=== PATIENT | male | born 1955 | race Caucasian/White ===

== ENCOUNTER 2019-03-28 15:48 | Emergency (ER) | payer MEDICARE, MEDICAID ==
[~2019-03-28] VITALS: Ht 175.2 cm; Wt 94.3 kg
--- NOTE | 2019-03-28 16:28 | ED Lower Extremity ---
General Chief Complaint: Lower Extremity Stated Complaint: LT FOOT PAIN Nursing Triage Note: Patient c/o left foot pain. Denies any known injury to his foot. He states he has neuropathy in his feet but his the left side of his left foot started hurting 2 days ago. Nursing Sepsis Screen: No Definite Risk History of Present Illness Date Seen by Provider: Mar 28, 2019 Time Seen by Provider: 16:03 Initial Comments The patient is a 63-year-old male with history of hypertension, hyperlipidemia, coronary artery disease, paroxysmal atrial fibrillation on Coumadin, COPD not on home oxygen, history of chronic back pain with spinal stimulator in place. The patient presents with concern for 2 days of atraumatic left foot discomfort. Pain is primarily notable to the lateral dorsal aspect of the left forefoot and midfoot, running all the way around to the skin above the lateral talus. Patient denies any known injury to his foot and states that pain had onset about 2 days ago without any unusual activity or use of his feet. He denies any other symptoms and specifically denies fevers, nausea or vomiting, cough, shortness of breath or chest pain, abdominal pain, flank pain, back pain any worse than usual, radiating discomfort down the left leg, dysuria, hematuria, loss of bowel or bladder, urinary retention, changes in bowel habits. Patient has been taking his home hydrocodone for discomfort without complete relief of symptoms. He did ambulate in with a narrow, steady gait. Allergies and Home Medications Allergies Coded Allergies: oxycodone (Verified Allergy, Unknown, 03/28/19) Home Medications Cephalexin 250 Mg Capsule, 250 MG PO Q6H Prescribed by: CHANDAN LOPEZ on 03/28/19 1647 Prednisone 20 Mg Tab, 40 MG PO DAILY Prescribed by: CHANDAN LOPEZ on 03/28/19 1647 Patient Home Medication List Home Medication List Reviewed: Yes Review of Systems Constitutional: see HPI All Other Systems Reviewed Negative Unless Noted: Yes (Negative excepted noted.) Past Hyxrjpf-Jqfvqo-Divhft Hx Past Med/Social Hx: Reviewed Nursing Past Med/Soc Hx Patient Social History Alcohol Use: Denies Use Recreational Drug Use: No Smoking Status: Current Everyday Smoker Type Used: Cigarettes 2nd Hand Smoke Exposure: No Recent Foreign Travel: No Contact w/Someone Who Travel: No Recent Infectious Disease Expo: No Recent Hopitalizations: No Physical Abuse: No Sexual Abuse: No Mistreated: No Fear: No Seasonal Allergies Seasonal Allergies: No Past Medical History Surgeries: Yes (Spinal Stimulator) Appendectomy, CABG Respiratory: Yes COPD Cardiac: Yes (CHF) Heart Attack, High Cholesterol, Hypertension Neurological: Yes Neuropathy Genitourinary: No Gastrointestinal: Yes Gastroesophageal Reflux Musculoskeletal: Yes Arthritis, Chronic Back Pain Endocrine: Yes Diabetes, Insulin dep HEENT: No Cancer: No Psychosocial: Yes Depression Blood Disorders: No Adverse Reaction/Blood Tranf: No Family Medical History Reviewed Nursing Family Hx Physical Exam Vital Signs Vital Signs - First Documented 03/28/19 15:58 Temp 36.2 Pulse 72 Resp 20 B/P (MAP) 121/73 (89) Pulse Ox 92 O2 Delivery Room Air Capillary Refill : Less Than 3 Seconds Height, Weight, BMI Height: '" Weight: lbs. oz. kg; 30.00 BMI Method: General Appearance: no apparent distress This is an older male appearing nontoxic and in no acute distress. Head is normocephalic and atraumatic. Neck is supple and nontender. Oropharynx is moist. Lungs are clear to auscultation in all stations. There is a normal S1 and S2 without rubs or gallops and capillary refill is appropriate, less than 2 seconds globally. Abdomen is soft, nontender and nondistended. Skin is warm and dry without cyanosis, clubbing or edema. Psychiatrically, the patient demonstrates appropriate mood and affect and is alert. Pry musculoskeletal standpoint, evaluation of the left lower extremity is remarkable for mild tenderness and swelling and very minimal erythema which is worst inferior to the lateral malleolus over the left foot. Mild discomfort to palpation and swelling extend over the lateral dorsal midfoot to the forefoot proximal to the fourth toe. There is no pain with ranging of any joint of the left lower extremity aside from the left ankle, which has no joint irritability and is able to be ranged in all dimensions, only with some discomfort to the area just below the lateral left ankle as above noted. The left lower extremity is neurovascularly intact with strength 5 out of 5, sensation intact to light touch in all nerve distributions, DP and PT pulses 2+, capillary refill less than 2 seconds, foot warm and well perfused. Progress/Results/Core Measures Results/Orders My Orders Orders - CHANDAN LOPEZ MD Foot 3 View Left (03/28/19 16:29) Prednisone Tablet (Deltasone Tablet) (03/28/19 17:00) Vital Signs/I&O 03/28/19 15:58 Temp 36.2 Pulse 72 Resp 20 B/P (MAP) 121/73 (89) Pulse Ox 92 O2 Delivery Room Air Blood Pressure Mean: 89 Progress Progress Note : Time: 16:41 Progress Note Clinical examination is generally reassuring with no joint irritability or brawny erythema to the left ankle or any other joint of the left lower extremity suggestive of septic joint. No calf pain or swelling in the patient is already on Coumadin in any event. Possibilities include occult soft tissue injury, occult fracture, gout flare, cellulitis. We will obtain plain films to further characterize the patient's symptoms. If these are unremarkable, we will cover for gout and other inflammatory process with low-dose steroid burst (patient is diabetic but on insulin and checks his sugars and will be able to compensate for hyperglycemia consequent to steroid use). He is unable to take NSAIDs. Given associated mild erythema, we'll cover for cellulitis with a course of Keflex. Patient is to take his home hydrocodone for pain and is counseled to follow up very closely with his primary care physician in the next 1-2 days in the clinic. In the meantime, he understands that if symptoms worsen or if he develops other new symptoms of concern that he will need to return immediately to the emergency department for reevaluation. Update 1710: plain films unremarkable. Will proceed with discharge to f/u closely with PCP in the next 1-2 days as per plan above. Departure Impression Primary Impression: Acute pain of left foot Disposition: 01 HOME, SELF-CARE Condition: Improved Departure-Patient Inst. Referrals: NO,LOCAL PHYSICIAN (PCP/Family) Primary Care Physician Add. Discharge Instructions: Follow up with your primary care physician as discussed in the next 1-2 days for reassessment and discussion of next steps in care. Return to the Emergency Depar tment immediately if symptoms worsen or if other new symptoms of concern develop. Scripts Cephalexin (Keflex) 250 Mg Capsule 250 MG PO Q6H for 7 Days, #28 CAP Prov: CHANDAN LOPEZ MD 03/28/19 Prednisone (Prednisone) 20 Mg Tab 40 MG PO DAILY for 5 Days, #5 TAB Prov: CHANDAN LOPEZ MD 03/28/19 CHANDAN LOPEZ MD Mar 28, 2019 16:28
[2019-03-28] MEDS ORDERED: CEPH-506 PO (16:47)
[2019-03-28] MEDS ORDERED: PRD20T PO (16:47)
[2019-03-28] MEDS ORDERED: predniSONE 20 MG TAB PO ONE (17:00)
--- NOTE | 2019-03-28 17:18 | Diagnostic Imaging Report ---
INDICATION: Left foot pain. TIME OF EXAM: 04:46 p.m. FINDINGS: Three views of the left foot were obtained. Metatarsals are intact. Phalanges are intact. Mid foot and hind foot are unremarkable apart from a small plantar calcaneal spur. No fractures are seen. IMPRESSION: No acute bony abnormality is detected. Dictated by: Dictated on workstation # [id number]
[2019-03-28 17:21] VITALS: BP 121/73
== END 2019-03-28 17:21 | disposition home or self-care (01) ==
LOC: ER FS 15:51
DX: M79.672 Pain in left foot (principal); I11.0 Hypertensive heart disease with heart failure; I50.9 Heart failure, unspecified; E11.40 Type 2 diabetes mellitus with diabetic neuropathy, unspecified; E78.5 Hyperlipidemia, unspecified; I25.10 Atherosclerotic heart disease of native coronary artery without angina pectoris; I25.2 Old myocardial infarction; I48.0 Paroxysmal atrial fibrillation; J44.9 Chronic obstructive pulmonary disease, unspecified; K21.9 Gastro-esophageal reflux disease without esophagitis; F32.9 Major depressive disorder, single episode, unspecified; F17.210 Nicotine dependence, cigarettes, uncomplicated; Z90.49 Acquired absence of other specified parts of digestive tract; Z95.1 Presence of aortocoronary bypass graft; Z99.81 Dependence on supplemental oxygen; Z88.5 Allergy status to narcotic agent
CPT/HCPCS: 73630

== ENCOUNTER 2019-04-25 14:50 | Observation (INO) | payer MEDICARE, MEDICAID ==
[2019-04-25] VITALS (7 sets, daily range): BP systolic 95–120; BP diastolic 61–97
[~2019-04-25] VITALS: Ht 172.7 cm; Wt 97.0 kg
[~2019-04-25 14:50] MED LIST: CEPH-506 PO; PRD20T PO
[2019-04-25] MEDS ORDERED: ASPIRIN 81 MG CHEW (CHILDREN'S ASA) PO ONE (15:00)
--- NOTE | 2019-04-25 15:05 | ED Respiratory ---
General Chief Complaint: Respiratory Problems Stated Complaint: SOA Source: patient Exam Limitations: no limitations History of Present Illness Date Seen by Provider: Apr 25, 2019 Time Seen by Provider: 15:03 Initial Comments To ER private vehicle from home with reports of shortness of breath for about 3 days. He just moved here from [facility] to [facility] 1 month ago. For the past 30 days he's been unable to fill his torsemide because the pharmacy has difficulty getting it he states. He denies cough. Continues to smoke about 5 cigarettes per day. Has not established care with any physicians in the area since moving here. Timing/Duration: constant, getting worse Associated Symptoms: shortness of breath Allergies and Home Medications Allergies Coded Allergies: oxycodone (Verified Allergy, Unknown, 03/28/19) Home Medications Cephalexin 250 Mg Capsule, 250 MG PO Q6H Prescribed by: CHANDAN LOPEZ on 03/28/191646 Prednisone 20 Mg Tab, 40 MG PO DAILY Prescribed by: CHANDAN LOPEZ on 03/28/19 1647 Patient Home Medication List Home Medication List Reviewed: Yes Review of Systems Review of Systems Constitutional: see HPI EENTM: see HPI Respiratory: see HPI, dyspnea on exertion, short of breath Cardiovascular: no symptoms reported; No chest pain Genitourinary: no symptoms reported Musculoskeletal: no symptoms reported Skin: no symptoms reported Psychiatric/Neurological: No Symptoms Reported Hematologic/Lymphatic: No Symptoms Reported Past Zwplppv-Obhosz-Orstap Hx Patient Social History Type Used: Cigarettes 2nd Hand Smoke Exposure: No Recent Foreign Travel: No Contact w/Someone Who Travel: No Recent Hopitalizations: No Seasonal Allergies Seasonal Allergies: No Past Medical History Surgeries: Yes (Spinal Stimulator) Appendectomy, CABG Respiratory: Yes COPD Cardiac: Yes (CHF) Heart Attack, High Cholesterol, Hypertension Neurological: Yes Neuropathy Genitourinary: No Gastrointestinal: Yes Gastroesophageal Reflux Musculoskeletal: Yes Arthritis, Chronic Back Pain Endocrine: Yes Diabetes, Insulin dep HEENT: No Cancer: No Psychosocial: Yes Depression Blood Disorders: No Adverse Reaction/Blood Tranf: No Physical Exam Vital Signs - First Documented 04/25/19 14:53 Temp 36.7 Pulse 77 Resp 24 B/P (MAP) 124/79 (94) Pulse Ox 94 O2 Delivery Nasal Cannula O2 Flow Rate 2.00 Capillary Refill : Height: '" Weight: lbs. oz. kg; 30.00 BMI Method: General Appearance: WD/WN, no apparent distress Eyes: Bilateral Eye Normal Inspection, Bilateral Eye PERRL, Bilateral Eye EOMI HEENT: PERRL/EOMI, normal ENT inspection Neck: non-tender, full range of motion Respiratory: no respiratory distress, no accessory muscle use, crackles (in bases) Cardiovascular: regular rate, rhythm, no murmur; No JVD Gastrointestinal: normal bowel sounds, non tender Extremities: normal range of motion, non-tender Neurologic/Psychiatric: alert, normal mood/affect, oriented x 3 Skin: normal color, warm/dry Progress/Results/Core Measures Suspected Sepsis SIRS Temperature: Pulse: Respiratory Rate: Laboratory Tests 04/25/19 14:58: White Blood Count 8.6 Blood Pressure / Mean: Laboratory Tests 04/25/19 14:58: Creatinine 3.03H, INR Comment 1.0, Platelet Count 116L, Total Bilirubin 0.6 Results/Orders Lab Results Laboratory Tests Test 04/25/19 14:58 04/25/19 17:13 Range/Units White Blood Count 8.6 4.3-11.0 10^3/uL Red Blood Count 4.01 L 4.35-5.85 10^6/uL Hemoglobin 11.9 L 13.3-17.7 G/DL Hematocrit 36 L 40-54 % Mean Corpuscular Volume 90 80-99 FL Mean Corpuscular Hemoglobin 30 25-34 PG Mean Corpuscular Hemoglobin Concent 33 32-36 G/DL Red Cell Distribution Width 14.9 H 10.0-14.5 % Platelet Count 116 L 130-400 10^3/uL Mean Platelet Volume 12.6 H 7.4-10.4 FL Neutrophils (%) (Auto) 68 42-75 % Lymphocytes (%) (Auto) 17 12-44 % Monocytes (%) (Auto) 11 0-12 % Eosinophils (%) (Auto) 4 0-10 % Basophils (%) (Auto) 0 0-10 % Neutrophils # (Auto) 5.8 1.8-7.8 X 10^3 Lymphocytes # (Auto) 1.5 1.0-4.0 X 10^3 Monocytes # (Auto) 1.0 0.0-1.0 X 10^3 Eosinophils # (Auto) 0.3 0.0-0.3 10^3/uL Basophils # (Auto) 0.0 0.0-0.1 10^3/uL Prothrombin Time 13.5 12.2-14.7 SEC INR Comment 1.0 0.8-1.4 Activated Partial Thromboplast Time 26 24-35 SEC Sodium Level 140 135-145 MMOL/L Potassium Level 4.4 3.6-5.0 MMOL/L Chloride Level 99 98-107 MMOL/L Carbon Dioxide Level 26 21-32 MMOL/L Anion Gap 15 H 5-14 MMOL/L Blood Urea Nitrogen 47 H 7-18 MG/DL Creatinine 3.03 H 0.60-1.30 MG/DL Estimat Glomerular Filtration Rate 21 BUN/Creatinine Ratio 16 Glucose Level 132 H 70-105 MG/DL Calcium Level 9.3 8.5-10.1 MG/DL Corrected Calcium 9.2 8.5-10.1 MG/DL Magnesium Level 2.3 1.6-2.4 MG/DL Total Bilirubin 0.6 0.1-1.0 MG/DL Aspartate Amino Transf (AST/SGOT) 15 5-34 U/L Alanine Aminotransferase (ALT/SGPT) 22 0-55 U/L Alkaline Phosphatase 75 40-136 U/L Myoglobin 101.9 H 10.0-92.0 NG/ML Troponin I 0.061 H <0.028 NG/ML B-Type Natriuretic Peptide 1699.5 H <100.0 PG/ML Total Protein 7.1 6.4-8.2 GM/DL Albumin 4.1 3.2-4.5 GM/DL My Orders Orders - OLGA POWELL CLIENT PROGRAM MANAGER Cbc With Automated Diff (04/25/19 14:57) Magnesium (04/25/19 14:57) Chest 1 View, Ap/Pa Only (04/25/19 14:57) Ekg Tracing (04/25/19 14:57) Cardiac Profile 1 (04/25/19 14:57) Comprehensive Metabolic Panel (04/25/19 14:57) Myoglobin Serum (04/25/19 14:57) Protime With Inr (04/25/19 14:57) Partial Thromboplastin Time (04/25/19 14:57) O2 (04/25/19 14:57) Monitor-Rhythm Ecg Trace Only (04/25/19 14:57) Lipid Panel (04/26/19 06:00) Ed Iv/Invasive Line Start (04/25/19 14:57) BNP (04/25/19 14:57) Aspirin Chewable Tablet (Baby Aspirin Ch (04/25/19 15:00) Ns Iv 500 Ml (Sodium Chloride 0.9%) (04/25/19 15:45) Furosemide Injection (Lasix Injection) (04/25/19 16:15) Fibrin Degradation Products (04/25/19 16:56) Albuterol/Ipra Inhalation Soln (Duoneb I (04/25/19 17:00) Svn Small Volume Nebulizer (04/25/19 16:57) Arterial Blood Gas (04/25/19 17:08) Medications Given in ED Current Medications Medications Dose Ordered Sig/Rhys Route Start Time Stop Time Status Last Admin Dose Admin Albuterol/ Ipratropium 3 ml ONCE ONCE INH 04/25/19 17:00 04/25/19 17:01 DC 04/25/19 17:07 3 ML Aspirin 324 mg ONCE ONCE PO 04/25/19 15:00 04/25/19 15:01 DC 04/25/19 15:12 324 MG Furosemide 40 mg ONCE ONCE IVP 04/25/19 16:15 04/25/19 16:16 DC 04/25/19 16:21 40 MG Vital Signs/I&O 04/25/19 04/25/19 04/25/19 14:53 14:58 17:08 Temp 36.7 Pulse 77 Resp 24 B/P (MAP) 124/79 (94) Pulse Ox 94 94 92 O2 Delivery Nasal Cannula Nasal Cannula Nasal Cannula O2 Flow Rate 2.00 2.00 2.00 Capillary Refill : Diagnostic Imaging Diagonstic Imaging: Xray Plain Films/CT/US/NM/MRI: chest Comments NAME: [facility] REC#: [id number] PT STATUS: REG ER : 1955 PHYSICIAN: OLGA POWELL APRN ADMIT DATE: 04/25/19/ER Draft POSDate of Exam:04/25/19 CHEST 1 VIEW, AP/PA ONLY EXAMINATION: Portable erect AP chest at 0314 hours. INDICATION: Fluid retention. COMPARISON: There are no prior studies available for comparison. FINDINGS: The heart is enlarged and there are sternotomy wires and surgical clips evident. There is also a left-sided defibrillator device in place. The central pulmonary vascularity is prominent and most likely there is an element of mild pulmonary congestion present. There is no sign of pneumonia or significant pleural effusion. The mediastinum is not widened. The osseous structures are intact. Incidental note is made of a dorsal stimulator device with the leads overlying the mid thoracic spine. IMPRESSION: There is cardiomegaly and evidence of prior cardiac surgery. The prominence of the central pulmonary vascularity also suggests that there is mild pulmonary congestion. A follow-up exam will be recommended for continued evaluation. Dictated on workstation # [id number] Dict: 04/25/19 1535 Trans: 04/25/19 1546 [facility] [id number] Interpreted by: STACI LOVE MD Electronically signed by: Departure Communication (Admissions) Time/Spoke to Consulting Phy: 17:24 1724-patient states that after a DuoNeb treatment he is feeling better. I feel that his shortness of breath is more related to a COPD exacerbation. He wears oxygen at 2 L per nasal cannula at home at night. He does have a nebulizer at home and has been using that. After our treatment here he does feel much less short of breath. I'll start him on Ceftin and prednisone for COPD exacerbation, admitted to hospitalist, consult cardiology for further workup Impression Primary Impression: CHF (congestive heart failure) Qualified Codes: I50.9 - Heart failure, unspecified Additional Impression: ARF (acute renal failure) Qualified Codes: N17.9 - Acute kidney failure, unspecified Disposition: ADMITTED INPATIENT Condition: Stable Admissions Decision to Admit Reason: Admit from ER (General) Decision to Admit/Date: Apr 25, 2019 Time/Decision to Admit Time: 17:24 Departure-Patient Inst. Referrals: NO,LOCAL PHYSICIAN (PCP/Family) Primary Care Physician OLGA POWELL APRN Apr 25, 2019 15:05 POS
[2019-04-25 15:11] LABS: BASOPHILS % (AUTO) 0 % (0-10); EOSINOPHILS # (AUTO) 0.3 10^3/uL (0.0-0.3); EOSINOPHILS % (AUTO) 4 % (0-10); HEMATOCRIT 36 % (40-54); HEMOGLOBIN 11.9 G/DL (13.3-17.7); LYMPHOCYTES # (AUTO) 1.5 X 10^3 (1.0-4.0); LYMPHOCYTES % (AUTO) 17 % (12-44); MEAN CORPUSCULAR HEMOGLOBIN 30 PG (25-34); MEAN CORPUSCULAR HGB CONC 33 G/DL (32-36); MEAN CORPUSCULAR VOLUME 90 FL (80-99); MEAN PLATELET VOLUME 12.6 FL (7.4-10.4); MONOCYTES % (AUTO) 11 % (0-12); NEUTROPHILS # (AUTO) 5.8 X 10^3 (1.8-7.8); NEUTROPHILS % (AUTO) 68 % (42-75); PLATELET COUNT 116 10^3/uL (130-400); RED CELL DISTRIBUTION WIDTH 14.9 % (10.0-14.5); WHITE BLOOD COUNT 8.6 10^3/uL (4.3-11.0)
[2019-04-25 15:22] LABS: PROTHROMBIN TIME PATIENT 13.5 SEC (12.2-14.7)
[2019-04-25 15:29] LABS: ALBUMIN 4.1 GM/DL (3.2-4.5); BILIRUBIN,TOTAL 0.6 MG/DL (0.1-1.0); CALCIUM 9.3 MG/DL (8.5-10.1); CREATININE SERUM 3.03 MG/DL (0.60-1.30); MAGNESIUM 2.3 MG/DL (1.6-2.4); POTASSIUM 4.4 MMOL/L (3.6-5.0); TOTAL PROTEIN 7.1 GM/DL (6.4-8.2)
[2019-04-25] MEDS ORDERED: NS IV 500 ML 500 ML IV SCH (15:45)
--- NOTE | 2019-04-25 15:46 | Diagnostic Imaging Report ---
EXAMINATION: Portable erect AP chest at 0314 hours. INDICATION: Fluid retention. COMPARISON: There are no prior studies available for comparison. FINDINGS: The heart is enlarged and there are sternotomy wires and surgical clips evident. There is also a left-sided defibrillator device in place. The central pulmonary vascularity is prominent and most likely there is an element of mild pulmonary congestion present. There is no sign of pneumonia or significant pleural effusion. The mediastinum is not widened. The osseous structures are intact. Incidental note is made of a dorsal stimulator device with the leads overlying the mid thoracic spine. IMPRESSION: There is cardiomegaly and evidence of prior cardiac surgery. The prominence of the central pulmonary vascularity also suggests that there is mild pulmonary congestion. A follow-up exam will be recommended for continued evaluation. Dictated by: Dictated on workstation # [id number]
[2019-04-25] MEDS ORDERED: FUROSEMIDE 40 MG/4 ML INJ (LASIX) IVP ONE (16:15)
[2019-04-25] MEDS ORDERED: RT-ALBUTEROL/IPRATROPIUM 3 ML (DUONEB) VIAL INH ONE (17:00)
[2019-04-25 17:20] LABS: ABG BASE EXCESS 6.7 MMOL/L (-2.5-2.5); ABG OXYGEN SATURATION 89 % (94-100); ABG PCO2 46 MMHG (35-45); ABG PH 7.44 (7.37-7.43); ABG PO2 53 MMHG (79-93); ABG TCO2 32.4 MMOL/L (21.0-31.0)
[2019-04-25 17:24] LABS: ALLENS TEST POSITIVE; INSPIRED O2 2 L; PATIENT TEMP 98; VENTILATOR NO
[2019-04-25] MEDS: predniSONE 20 MG TAB PO SCH (21:41)
[2019-04-25] MEDS: inSUlin ASPART (NovoLOG) 1 UNIT/0.01 ML (CHARGE PER UNIT) SC SCH (21:42)
[2019-04-25] MEDS ORDERED: RT-ALBUTEROL/IPRATROPIUM 3 ML (DUONEB) VIAL INH PRN (23:15)
[2019-04-26] VITALS (9 sets, daily range): BP systolic 111–127; BP diastolic 66–84
[2019-04-26] MEDS: inSUlin ASPART (NovoLOG) 1 UNIT/0.01 ML (CHARGE PER UNIT) SC SCH ×4 (06:06→19:45)
[2019-04-26 06:43] LABS: CHOLESTEROL 132 MG/DL (< 200); HDL CHOLESTEROL 34 MG/DL (40-60); TRIGLYCERIDES 103 MG/DL (<150); VLDL CHOLESTEROL 21 MG/DL (5-40)
[2019-04-26] MEDS: FUROSEMIDE 40 MG/4 ML INJ (LASIX) IVP SCH ×2 (08:38→17:20)
[2019-04-26] MEDS: ASPIRIN 81 MG CHEW (CHILDREN'S ASA) PO SCH (08:38)
[2019-04-26] MEDS: predniSONE 20 MG TAB PO SCH (08:38)
--- NOTE | 2019-04-26 09:16 | History & Physical-Hospitalist ---
History of Present Illness HPI/Chief Complaint He should is a 63-year-old male with past medical history of systolic heart failure, insulin-dependent diabetes type II, COPD, coronary artery disease who presented to the emergency room with lower extremity edema and shortness of breath. He states this started about 4 days ago. He has recently moved here f [facility] and has been unable to get his torsemide and thinks that this worsened. He was also having shortness of breath but did not feel that that was his COPD. He is currently wearing oxygen but does not normally wear oxygen. He was started on Lasix in the emergency room and then prednisone on admission and this morning states he is feeling much better. He still has significant edema i n his legs from his baseline per him but his breathing is much improved. He is scheduled to see Dr. Blanco on Saturday but has not established with a hog scraper or fabric normalizer. Source: patient Date Seen 04/26/19 Time Seen by a Provider: 09:15 Attending Physician Johnathon Hatfield MD PCP No,Local Physician Referring Physician Date of Admission Apr 25, 2019 at 16:45 Home Medications & Allergies Home Medications Reviewed patient Home Medication Reconciliation performed by pharmacy medication reconciliations electroplating technician and/or nursing. Patients Allergies have been reviewed. Allergies Allergies Coded Allergies oxycodone (Verified Allergy, Unknown, 03/28/19) Past Fwwntfu-Uxkxwy-Saiorp Hx Past Med/Social Hx: Reviewed Nursing Past Med/Soc Hx Patient Social History Alcohol Use: Denies Use Recreational Drug Use: No Smoking Status: Current Everyday Smoker Cigaretts per day: 5 Type Used: Cigarettes 2nd Hand Smoke Exposure: No Recent Foreign Travel: No Contact w/other who traveled: No Recent Hopitalizations: No Recent Infectious Disease Expo: No Immunizations Up To Date Date of Pneumonia Vaccine: Apr 25, 2016 Date of Influenza Vaccine: Apr 03, 2019 Seasonal Allergies Seasonal Allergies: No Past Medical History Surgeries: Appendectomy, CABG, Defibrillator Cardiac: Heart Attack, High Cholesterol, Hypertension Neurological: Neuropathy Gastrointestinal: Gastroesophageal Reflux Musculoskeletal: Arthritis, Chronic Back Pain Endocrine: Diabetes, Insulin dep Psychosocial: Depression History of Blood Disorders: No Adverse Reaction to Blood Lindsey: No Family History Cardiovascular disease 19 FATHER Diabetes mellitus 19 FATHER FH: CHF (congestive heart failure) 19 FATHER Myocardial infarction G8 BROTHER Review of Systems Constitutional: No chills, No fever, No weakness EENTM: no symptoms reported Respiratory: cough, dyspnea on exertion, short of breath Cardiovascular: No chest pain; edema, Hx of Intervention; No palpitations, No syncope Gastrointestinal: no symptoms reported Genitourinary: no symptoms reported Musculoskeletal: no symptoms reported Skin: no symptoms reported Psychiatric/Neurological: No Symptoms Reported Physical Exam Physical Exam Vital Signs Vital Signs - First Documented 04/25/19 14:53 Temp 36.7 Pulse 77 Resp 24 B/P (MAP) 124/79 (94) Pulse Ox 94 O2 Delivery Nasal Cannula O2 Flow Rate 2.00 Capillary Refill : Less Than 3 Seconds Height, Weight, BMI Height: '" Weight: lbs. oz. kg; 32.65 BMI Method: General Appearance: No Apparent Distress, WD/WN HEENT: Normal ENT Inspection, Moist Mucous Membranes; No Scleral Icterus (L), No Scleral Icterus (R) Neck: Normal Inspection, Supple; No Thyromegaly Respiratory: Lungs Clear, No Accessory Muscle Use, No Respiratory Distress Cardiovascular: Regular Rate, Rhythm, Systolic Murmur Gastrointestinal: Normal Bowel Sounds, Non Tender, Soft Extremity: No Calf Tenderness, Swelling (3+ pitting edema to knees) Neurologic/Psychiatric: Alert, Oriented x3, Normal Mood/Affect; No Aphasia, No Facial Droop Skin: Normal Color, Warm/Dry Results Results/Procedures Labs Laboratory Tests 04/25/19 14:58 Patient resulted labs reviewed. Imaging: Reviewed Imaging Report Assessment/Plan Admission Diagnosis Dyspnea- multifactorial Admission Status: Inpatient Order (span 2 midnights) Reason for Inpatient Admission: needs IV diuresis, echo, cardiology evaluation, high risk for decompensation if discharged early Assessment and Plan CHF Exacerbation CAD Elevated troponin BNP elevated Significant edema Continue lasix Cardiology consulted, appreciate recs Echo ordered CKD Layout Former 3, unsure of baseline Trend Continue lasix for decompensated heart failure but IVF added by Dr Harman Will need nephrology referral on discharge Trend COPD Was wheezing in ER- started on prednisone Improved MAT protocol Pulm consulted, appreciate recs IDDMII Continue Home insulin SSI Anticipate higher blood sugars due to steroids Tobacco abuse recommended cessation down from 2ppd to 5 cig/day Clinical Quality Measures DVT/VTE Risk/Contraindication: Risk Factor Score Per Nursin RFS Level Per Nursing on Admit: 4+=Very High JOHNATHON HATFIELD MD Apr 26, 2019 09:15 POS
--- NOTE | 2019-04-26 10:29 | Pulmonary Consultation ---
History of Present Illness History of Present Illness Date of Consultation 04/26/19 10:27 Date of Admission Allergies and Home Medications Allergies Coded Allergies: oxycodone (Verified Allergy, Unknown, 03/28/19) Home Medications Cephalexin 250 Mg Capsule, 250 MG PO Q6H Prescribed by: CHANDAN LOPEZ on 03/28/191646 Prednisone 20 Mg Tab, 40 MG PO DAILY Prescribed by: CHANDAN LOPEZ on 03/28/19 1647 Past Fdaahjk-Hfdxsp-Qfqdmb Hx Patient Social History Alcohol Use: Denies Use Recreational Drug Use: No Smoking Status: Current Everyday Smoker Type Used: Cigarettes 2nd Hand Smoke Exposure: No Recent Foreign Travel: No Contact w/Someone Who Travel: No Recent Infectious Disease Expo: No Recent Hopitalizations: No Immunizations Up To Date Date of Pneumonia Vaccine: Apr 25, 2016 Date of Influenza Vaccine: Apr 03, 2019 Seasonal Allergies Seasonal Allergies: No Past Medical History Surgeries: Yes (Spinal Stimulator) Appendectomy, CABG, Defibrillator Respiratory: Yes COPD Cardiac: Yes (CHF) Heart Attack, High Cholesterol, Hypertension Neurological: Yes Neuropathy Genitourinary: No Gastrointestinal: Yes Gastroesophageal Reflux Musculoskeletal: Yes Arthritis, Chronic Back Pain Endocrine: Yes Diabetes, Insulin dep HEENT: No Cancer: No Psychosocial: Yes Depression Blood Disorders: No Adverse Reaction/Blood Tranf: No Family Medical History Cardiovascular disease 19 FATHER Diabetes mellitus 19 FATHER FH: CHF (congestive heart failure) 19 FATHER Myocardial infarction G8 BROTHER Sepsis Event Evaluation Height, Weight, BMI Height: '" Weight: lbs. oz. kg; 32.65 BMI Method: Exam Exam Vital Signs Date Time Temp Pulse Resp B/P (MAP) Pulse Ox O2 Delivery O2 Flow Rate FiO2 04/26/19 08:00 Room Air 04/26/19 08:00 Room Air 04/26/19 08:00 70 21 114/73 (87) Nasal Cannula 2.00 04/26/19 07:00 68 04/26/19 04:00 94 Room Air 04/26/19 04:00 35.9 66 121/69 (86) 94 Nasal Cannula 1.00 04/26/19 01:00 63 04/26/19 00:00 36.4 04/26/19 00:00 71 115/67 (83) 92 Room Air 04/26/19 00:00 94 Room Air 04/25/19 22:59 86 96 04/25/19 21:00 Room Air 04/25/19 20:00 36.2 04/25/19 20:00 94 Room Air 04/25/19 20:00 70 18 102/87 (92) 92 Room Air 04/25/19 19:45 67 13 95/69 (78) Room Air 04/25/19 19:30 70 16 115/89 (98) Room Air 04/25/19 19:15 71 17 111/97 (102) Room Air 04/25/19 19:00 71 14 117/61 (79) Room Air 04/25/19 19:00 71 04/25/19 18:15 67 27 120/69 (86) 92 Room Air 04/25/19 18:04 70 04/25/19 18:00 Room Air 04/25/19 18:00 68 21 120/69 (86) 93 Room Air 04/25/19 17:55 36.7 73 18 127/70 (94) 94 Nasal Cannula 2.00 04/25/19 17:08 92 Nasal Cannula 2.00 04/25/19 14:58 94 Nasal Cannula 2.00 04/25/19 14:53 36.7 77 24 124/79 (94) 94 Nasal Cannula 2.00 I & O 04/26/19 07:00 Intake Total 400 ml Output Total 1000 ml Balance -600 ml Height & Weight Height: '" Weight: lbs. oz. kg; 32.65 BMI Method: Capillary Refill: Less Than 3 Seconds Gastrointestinal: normal bowel sounds, non tender Results Lab Laboratory Tests 04/25/19 14:58 Assessment/Plan Assessment/Plan COPDAE with hypoxia -SVNS -Continue Prednisone -Oxygen CHFAE -Lasix NATALIA -Monitor WIL LEÓN DO Apr 26, 2019 10:29 POS
[2019-04-26] MEDS: HYDROcodone/APAP 10 MG/325 MG (LORTAB) TAB PO PRN ×2 (11:37→19:44)
--- NOTE | 2019-04-26 12:27 | Consultation-Cardiology ---
HPI-Cardiology Cardiology Consultation: Date of Consultation 04/26/19 Time Seen by a Provider: 11:45 Date of Admission Attending Physician Liset Hatfield MD Admitting Physician No,Local Physician Consulting Physician GAB VALLECILLO MD, MA, FACP, FACC, FSCAI, CCDS HPI: Chief Complaint: CC: Shortness of breath HPI 63 yo man who reports an extensive h/o cardiac and pulm issues (see below) and who moved to [place] from [place] a few months ago. Had run out of diuretics. Had continued to smoke. Was getting increasedly short of breath. Came to ER. Was given breathing treatments. Feels better. No cp or palp or syncope or shocks from ICD. Chronic leg swelling is worse in the recent past. Denies fever or chills Review of Systems-Cardiology Review of Systems Constitutional: malaise, tiredness; No weight loss, No weight gain Eyes: No vision change Ears/Nose/Throat: No ear discharge, No nasal drainage, No recent hearing loss Respiratory: As described under HPI Cardiovascular: As described under HPI Gastrointestinal: No diarrhea, No nausea, No vomiting Genitourinary: No dysuria, No hematuria, No urine frequency changes Musculoskeletal: back pain (chronic) Skin: No rash, No ulcerations Psychiatric/Neurological: No seizure, No focal weakness, No syncope Hematologic: No bleeding abnormalities MFB-Bgvzcp-Vfmfwy Hx Patient Social History Alcohol Use: Denies Use Recreational Drug Use: No Smoking Status: Current Everyday Smoker Type Used: Cigarettes 2nd Hand Smoke Exposure: No Recent Foreign Travel: No Recent Infectious Disease Expo: No Hospitalization with Isolation: Denies Immunizations Up To Date Date of Pneumonia Vaccine: Apr 25, 2016 Date of Influenza Vaccine: Apr 03, 2019 Past Medical History PMH As described under Assessment. Family Medical History Family History: Cardiovascular disease 19 FATHER Diabetes mellitus 19 FATHER FH: CHF (congestive heart failure) 19 FATHER Myocardial infarction G8 BROTHER Allergies and Home Medications Allergies Coded Allergies: oxycodone (Verified Allergy, Unknown, 03/28/19) Home Medications Cephalexin 250 Mg Capsule, 250 MG PO Q6H Prescribed by: CHANDAN LOPEZ on 03/28/19 1647 Prednisone 20 Mg Tab, 40 MG PO DAILY Prescribed by: CHANDAN LOPEZ on 03/28/19 1647 Patient Home Medication List Home Medication List Reviewed: Yes Physical Exam-Cardiology Physical Exam Vital Signs/I&O 04/26/19 04/26/19 04/26/19 04/26/19 01:00 04:00 04:00 07:00 Temp 35.9 Pulse 63 66 68 B/P (MAP) 121/69 (86) Pulse Ox 94 94 O2 Delivery Nasal Cannula Room Air O2 Flow Rate 1.00 04/26/19 04/26/19 04/26/19 08:00 08:00 08:00 Pulse 70 Resp 21 B/P (MAP) 114/73 (87) O2 Delivery Nasal Cannula Room Air Room Air O2 Flow Rate 2.00 04/26/19 00:00 Intake Total 300 ml Output Total 400 ml Balance -100 ml Capillary Refill : Less Than 3 Seconds Data Review Labs Laboratory Tests 04/25/19 14:58: White Blood Count 8.6, Red Blood Count 4.01L, Hemoglobin 11.9L, Hematocrit 36L, Mean Corpuscular Volume 90, Mean Corpuscular Hemoglobin 30, Mean Corpuscular Hemoglobin Concent 33, Red Cell Distribution Width 14.9H, Platelet Count 116L, Mean Platelet Volume 12.6H, Neutrophils (%) (Auto) 68, Lymphocytes (%) (Auto) 17, Monocytes (%) (Auto) 11, Eosinophils (%) (Auto) 4, Basophils (%) (Auto) 0, Neutrophils # (Auto) 5.8, Lymphocytes # (Auto) 1.5, Monocytes # (Auto) 1.0, Eosinophils # (Auto) 0.3, Basophils # (Auto) 0.0, Prothrombin Time 13.5, INR Comment 1.0, Activated Partial Thromboplast Time 26, D-Dimer 0.63H, Sodium Level 140, Potassium Level 4.4, Chloride Level 99, Carbon Dioxide Level 26, Anion Gap 15H, Blood Urea Nitrogen 47H, Creatinine 3.03H, Estimat Glomerular Filtration Rate 21, BUN/Creatinine Ratio 16, Glucose Level 132H, Calcium Level 9.3, Corrected Calcium 9.2, Magnesium Level 2.3, Total Bilirubin 0.6, Aspartate Amino Transf (AST/SGOT) 15, Alanine Aminotransferase (ALT/SGPT) 22, Alkaline Phosphatase 75, Myoglobin 101.9H, Troponin I 0.061H, B-Type Natriuretic Peptide 1699.5H, Total Protein 7.1, Albumin 4.1 04/25/19 17:13: Blood Gas Puncture Site RIGHT RADIAL, Blood Gas Patient Temperature 98, Arterial Blood pH 7.44H, Arterial Blood Partial Pressure CO2 46H, Arterial Blood Partial Pressure O2 53L, Arterial Blood HCO3 31H, Arterial Blood Total CO2 32.4H, Arterial Blood Oxygen Saturation 89L, Arterial Blood Base Excess 6.7H, Colt Test POSITIVE, Blood Gas Ventilator Setting NO, Blood Gas Inspired Oxygen 2 L 04/25/19 21:13: Glucometer 256H 04/26/19 01:06: Troponin I 0.068H 04/26/19 06:04: Glucometer 154H 04/26/19 06:07: Troponin I 0.057H, Triglycerides Level 103, Cholesterol Level 132, LDL Cholesterol Direct 100, VLDL Cholesterol 21, HDL Cholesterol 34L 04/26/19 07:46: Glucometer 211H 04/26/19 11:19: Glucometer 314H Laboratory Tests 04/25/19 14:58 A/P-Cardiology Assessment/Admission Diagnosis Shortness of breath, likely multifactorial (see below) Ac on chronic systolic CHF due to ischemic cardiomyopathy and recent noncompliance with diuretics Ac exac of COPD, likely due to lower resp tract infection Renal failure of undetermined age CAD. Pt reports the following. [place] leading to CABG in 1994. 5 cor stents between 1994 and 2003 Pt reports ischemic cardiomyopathy leading to ICD (he thinks BiV) in or around 2009, revised in 2014, last checked about 3 months ago in [place], [place]. Current device is a [employer] Sci device, he says DM II, insulin-requiring Chronic tobacco use (currently smoking 5 cigs/day) H/o hypertension Discussion and Recomendations * Diuretics and gentle iv hydration * Monitor labs closely * Echo * Carvedilol * Not suitable for ISMAEL-inhib or ARB due renal failure of undetermined age and etiology * Obtain old records * Advised to refrain from any tobacco use * Further recs base on hosp course Clinical Quality Measures DVT/VTE Risk/Contraindication: Risk Factor Score Per Nursin RFS Level Per Nursing on Admit: 4+=Very High GAB VALLECILLO MD FACP FAC CCDS Apr 26, 2019 12:27 POS
[2019-04-26] MEDS ORDERED: CARVEDILOL 3.125 MG (COREG) TABLET PO NR (12:40)
[2019-04-26] MEDS: NS IV 1000 ML 1,000 ML IV SCH (13:30)
[2019-04-26] MEDS: RT-ALBUTEROL/IPRATROPIUM 3 ML (DUONEB) VIAL INH SCH ×2 (14:04→18:14)
[2019-04-26] MEDS ORDERED: CARVEDILOL 3.125 MG (COREG) TABLET PO SCH (21:00)
[2019-04-27] MEDS: NS IV 1000 ML 1,000 ML IV SCH (02:17)
[2019-04-27 03:55] LABS: BASOPHILS % (AUTO) 0 % (0-10); EOSINOPHILS # (AUTO) 0.1 10^3/uL (0.0-0.3); EOSINOPHILS % (AUTO) 1 % (0-10); HEMATOCRIT 38 % (40-54); HEMOGLOBIN 12.6 G/DL (13.3-17.7); LYMPHOCYTES % (AUTO) 8 % (12-44); MEAN CORPUSCULAR HEMOGLOBIN 29 PG (25-34); MEAN CORPUSCULAR HGB CONC 33 G/DL (32-36); MEAN CORPUSCULAR VOLUME 89 FL (80-99); MEAN PLATELET VOLUME 13.6 FL (7.4-10.4); MONOCYTES # (AUTO) 0.9 X 10^3 (0.0-1.0); MONOCYTES % (AUTO) 7 % (0-12); NEUTROPHILS # (AUTO) 10.4 X 10^3 (1.8-7.8); NEUTROPHILS % (AUTO) 84 % (42-75); PLATELET COUNT 130 10^3/uL (130-400); RED CELL DISTRIBUTION WIDTH 14.9 % (10.0-14.5); WHITE BLOOD COUNT 12.4 10^3/uL (4.3-11.0)
[2019-04-27 04:13] LABS: BILIRUBIN,TOTAL 0.6 MG/DL (0.1-1.0); CALCIUM 9.5 MG/DL (8.5-10.1); CREATININE SERUM 2.87 MG/DL (0.60-1.30); MAGNESIUM 2.2 MG/DL (1.6-2.4); POTASSIUM 4.5 MMOL/L (3.6-5.0); TOTAL PROTEIN 6.9 GM/DL (6.4-8.2)
--- NOTE | 2019-04-27 06:14 | Pulmonary Progress Note ---
Subjective Time Seen by a Provider: 06:16 Subjective/Events-last exam Still complains fo SOB. Sepsis Event Evaluation Height, Weight, BMI Height: '" Weight: lbs. oz. kg; 32.65 BMI Method: Exam Exam Vital Signs Date Time Temp Pulse Resp B/P (MAP) Pulse Ox O2 Delivery O2 Flow Rate FiO2 04/27/19 04:00 94 Nasal Cannula 2.00 04/27/19 00:53 69 04/27/19 00:00 96 Nasal Cannula 2.00 04/26/19 21:00 Room Air 04/26/19 20:00 Nasal Cannula 2.00 04/26/19 20:00 74 26 114/68 (83) Nasal Cannula 2.00 04/26/19 19:20 36.7 72 21 114/68 (83) 94 04/26/19 19:00 79 04/26/19 18:14 92 Nasal Cannula 2.00 04/26/19 16:00 70 15 127/84 (98) Nasal Cannula 2.00 04/26/19 16:00 Room Air 04/26/19 15:15 36.4 68 21 127/84 (98) 95 04/26/19 13:00 83 04/26/19 12:00 Room Air 04/26/19 12:00 74 17 111/66 (81) Nasal Cannula 2.00 04/26/19 11:15 36.1 67 24 111/66 (81) 96 04/26/19 08:00 Room Air 04/26/19 08:00 Room Air 04/26/19 08:00 70 21 114/73 (87) Nasal Cannula 2.00 04/26/19 07:00 68 I & O 04/27/19 07:00 Intake Total 2055 ml Output Total 2500 ml Balance -445 ml Height & Weight Height: '" Weight: lbs. oz. kg; 32.65 BMI Method: General Appearance: No Apparent Distress, WD/WN HEENT: Normal ENT Inspection, Moist Mucous Membranes; No Scleral Icterus (L), No Scleral Icterus (R) Neck: Normal Inspection, Supple; No Thyromegaly Respiratory: Lungs Clear, No Accessory Muscle Use, No Respiratory Distress Cardiovascular: Regular Rate, Rhythm, Systolic Murmur Capillary Refill: Less Than 3 Seconds Gastrointestinal: normal bowel sounds, non tender Extremity: No Calf Tenderness, Swelling (3+ pitting edema to knees) Neurologic/Psychiatric: Alert, Oriented x3, Normal Mood/Affect; No Aphasia, No Facial Droop Skin: Normal Color, Warm/Dry Results Lab Laboratory Tests 04/25/19 14:58 04/27/19 03:00 Assessment/Plan Assessment/Plan COPDAE with hypoxia -SVNS -Prednisone -Oxygen CHFAE -Lasix -Pt is getting both lasix and IVF. I am going to D/C IVF -Monitor renal function NATALIA -Monitor WIL LEÓN DO Apr 27, 2019 06:14 POS
[2019-04-27] MEDS: predniSONE 20 MG TAB PO SCH (06:48)
[2019-04-27] MEDS: FUROSEMIDE 40 MG/4 ML INJ (LASIX) IVP SCH (06:48)
[2019-04-27] MEDS: inSUlin ASPART (NovoLOG) 1 UNIT/0.01 ML (CHARGE PER UNIT) SC SCH ×4 (06:48→21:14)
[2019-04-27] MEDS ORDERED: FUROSEMIDE 40 MG (LASIX) TAB PO SCH (07:00)
--- NOTE | 2019-04-27 07:53 | Diagnostic Imaging Report ---
INDICATION: Shortness of breath. COMPARISON: 04/25/2019 TECHNIQUE: Single frontal radiograph of the chest dated 04/27/2019. FINDINGS: Post surgical changes of a CABG and pacer device are again identified. The cardiac silhouette is enlarged, though stable. Mild central pulmonary vascular congestion. Vascular stent is seen overlying the right heart border. The lungs appear clear of focal pulmonary opacity. No pleural effusion. No pneumothorax. No acute osseous abnormality. IMPRESSION: Similar-appearing examination demonstrating cardiomegaly and mild central pulmonary vascular congestion without definitive interstitial edema or pleural effusion. Dictated by: Dictated on workstation # [id number]
--- NOTE | 2019-04-27 08:32 | Progress Note - Cardiology ---
Cardiology SOAP Progress Note Subjective: Sitting up in a chair at the bedside. He would like to go home today. Feels breathing has improved. Denies any c/o CP, palpitations, syncope or near syncope. Objective: I&O/Vital Signs 04/27/19 04/27/19 04/27/19 04/27/19 00:00 00:53 04:00 07:00 Pulse 69 72 Pulse Ox 96 94 O2 Delivery Nasal Cannula Nasal Cannula O2 Flow Rate 2.00 2.00 04/27/19 00:00 Intake Total 2055 ml Output Total 2500 ml Balance -445 ml Constitutional: AAO x 3, well-developed, well-nourished Respiratory: No accessory muscle use, No respiratory distress; chest expansion is symmetric, chest is bilaterally symmetric, other (prolonged exp phase) Cardiovascular: regular rate-rhythm; No JVD; S1 and S2 Gastrointestional: No tender; soft, round, audible bowel sounds Extremities: swelling (mild to mod bilat LE swelling) Neurologic/Psychiatric: grossly intact Skin: No rash on exposed areas, No ulcerations on exposed areas Results/Procedures: Labs Laboratory Tests 04/26/19 11:19: Glucometer 314H 04/26/19 16:45: Glucometer 338H 04/26/19 19:40: Glucometer 318H 04/27/19 03:00: White Blood Count 12.4H, Red Blood Count 4.33L, Hemoglobin 12.6L, Hematocrit 38L , Mean Corpuscular Volume 89, Mean Corpuscular Hemoglobin 29, Mean Corpuscular Hemoglobin Concent 33, Red Cell Distribution Width 14.9H, Platelet Count 130, Mean Platelet Volume 13.6H, Neutrophils (%) (Auto) 84H, Lymphocytes (%) (Auto) 8L, Monocytes (%) (Auto) 7, Eosinophils (%) (Auto) 1, Basophils (%) (Auto) 0, Neutrophils # (Auto) 10.4H, Lymphocytes # (Auto) 1.0, Monocytes # (Auto) 0.9, Eosinophils # (Auto) 0.1, Basophils # (Auto) 0.0, Sodium Level 136, Potassium Level 4.5, Chloride Level 97L, Carbon Dioxide Level 25, Anion Gap 14, Blood Urea Nitrogen 48H, Creatinine 2.87H, Estimat Glomerular Filtration Rate 22, BUN/Creatinine Ratio 17, Glucose Level 203H, Calcium Level 9.5, Corrected Calcium 9.5, Magnesium Level 2.2, Total Bilirubin 0.6, Aspartate Amino Transf (AST/SGOT) 15, Alanine Aminotransferase (ALT/SGPT) 20, Alkaline Phosphatase 65, Total Protein 6.9, Albumin 4.0, Triglycerides Level 90, Cholesterol Level 146, LDL Cholesterol Direct 90, VLDL Cholesterol 18, HDL Cholesterol 43, Thyroid Stimulating Hormone (TSH) 2.58 Laboratory Tests 04/25/19 14:58 04/27/19 03:00 Procedures NAME: LILIANA PARRY [facility] REC#: [id number] PT STATUS: ADM IN : 1955 PHYSICIAN: WIL LEÓN DO ADMIT DATE: 04/25/19/ICU Draft Date of Exam:04/27/19 CHEST 1 VIEW, AP/PA ONLY INDICATION: Shortness of breath. COMPARISON: 04/25/2019 TECHNIQUE: Single frontal radiograph of the chest dated 04/27/2019. FINDINGS: Post surgical changes of a CABG and pacer device are again identified. The cardiac silhouette is enlarged, though stable. Mild central pulmonary vascular congestion. Vascular stent is seen overlying the right heart border. The lungs appear clear of focal pulmonary opacity. No pleural effusion. No pneumothorax. No acute osseous abnormality. IMPRESSION: Similar-appearing examination demonstrating cardiomegaly and mild central pulmonary vascular congestion without definitive interstitial edema or pleural effusion. Dictated on workstation # [id number] Dict: 04/27/19 0746 Trans: 04/27/19 [id number] [id number] Interpreted by: MANUEL RUSHING MD Electronically signed by: A/P: Assessment: Shortness of breath, likely multifactorial (see below) Ac on chronic systolic CHF due to ischemic cardiomyopathy and recent noncompliance with diuretics Ac exac of COPD, likely due to lower resp tract infection CKD stage 4 - previously following with nephrology services until he moved Echocardiogram of 04-26-19 showed concentric hypertrophy. LVEF 20-25%. Akinesis of the anteroseptal myocardium. Grade 2 diastolic dysfunction. LA se verely dilated. Mod MR and TR. RVSP approx 46 mmHg CAD. Pt reports the following. [place] leading to CABG in 1994. 5 cor stents between 1994 and 2003 Pt reports ischemic cardiomyopathy leading to ICD (he thinks BiV) in or around 2009, revised in 2014, last checked about 3 months ago in [place], [place]. Current device is a [employer] Sci device, he says DM II, insulin-requiring Chronic tobacco use (currently smoking 5 cigs/day) H/o hypertension Plan: * Renal function improved following IVF * Monitor labs closely * Continue Carvedilol * Not suitable for ISMAEL-inhib or ARB due renal failure of undetermined age and etiology * Obtain old records * Advised to refrain from any tobacco use * He reports he was previously taking Torsemide and wishes to be discharged home on this diuretic as he has been on it in the past and believes he had better control of his chronic CHF Physician Assessment Physician Assessment Feels somewhat better. No cp or palp or syncope Lungs: basal crackles and rales Cor: reg with 2/6 MSM at card apex Ext: mod, pitting edema of the legs A&R * As documented in our note above that I updated (italics) and as note below * Replace iv diuretics with oral torsemide (pt states this has worked the best in the past) * Increase carvedilol * Not suitable for ISMAEL-inhib/ARB due to renal failure and relatively low bp * Increase ambulation * Monitor labs * Interrogate device [facility] [employer] Apr 27, 2019 08:32 GAB MCCORMACK MD [facility] 09:24 POS
[2019-04-27] MEDS ORDERED: CARVEDILOL 3.125 MG (COREG) TABLET PO NR (09:00)
[2019-04-27] MEDS: TORSEMIDE 20 MG (DEMADEX) TAB PO SCH ×2 (09:37→16:07)
[2019-04-27] MEDS: ASPIRIN 81 MG CHEW (CHILDREN'S ASA) PO SCH (09:37)
[2019-04-27] MEDS: CARVEDILOL 6.25 MG (COREG) TAB PO SCH ×2 (09:37→21:14)
[2019-04-27] MEDS: RT-ALBUTEROL/IPRATROPIUM 3 ML (DUONEB) VIAL INH SCH ×2 (09:43→20:39)
[2019-04-27] MEDS ORDERED: HYDR-3820 PO (10:29)
[2019-04-27] MEDS ORDERED: DEXL30CA2 PO (10:29)
[2019-04-27] MEDS ORDERED: CARV6.252 PO (10:29)
[2019-04-27] MEDS ORDERED: METO5TAB6 PO (10:29)
[2019-04-27] MEDS ORDERED: DOXA2TAB2 PO (10:29)
[2019-04-27] MEDS ORDERED: BUME2TAB7 PO (10:29)
[2019-04-27] MEDS ORDERED: CIPR500T4 PO (10:29)
[2019-04-27] MEDS ORDERED: CLOP75TA28 PO (13:47)
[2019-04-27] MEDS ORDERED: TAMS0.4C98 PO (13:47)
[2019-04-27] MEDS ORDERED: ONDA4TAB10 PO (13:47)
[2019-04-27] MEDS ORDERED: PANT40TA2 PO (13:47)
[2019-04-27] MEDS ORDERED: FURO40TA4 PO (13:47)
[2019-04-27] MEDS ORDERED: SPIR25TA PO (13:47)
[2019-04-27] MEDS ORDERED: AMLO5TAB9 PO (13:47)
[2019-04-27] MEDS ORDERED: CYCL10TA9 PO (13:47)
[2019-04-27] MEDS ORDERED: ATOR40TA70 PO (13:47)
[2019-04-27] MEDS ORDERED: ASPI-983 PO (13:52)
[2019-04-27] MEDS ORDERED: MULT-1030 PO (13:52)
[2019-04-27] MEDS ORDERED: ASCO500C15 PO (13:52)
[2019-04-27] MEDS ORDERED: ZOLP10TA5 PO (13:52)
--- NOTE | 2019-04-27 14:00 | NUR ---
SPOKE WITH PT (ALSO CALLED HIS WHO TAKES CARE OF HIS MEDS), CALLED [facility] AND WENT THRU THE EXT MED HISTORY TO COMPLETE THE MED REC. THE PT (AND THEN HIS ) WERE ABLE TO TELL ME ALL HIS MEDS WELL HOW/WHEN HE TAKES THEM. THE FOLLOWING FILL DATES ARE FROM [facility] AND WERE NOT ON THE EXT MED HIST: 02-02-2019 ZOLPIDEM #30/30DS 02-23-2019 TAMSULOSIN #90/90DS 02-23-2019 AMLODIPINE #90/90DS 02-23-2019 ATORVASTATIN #90/90DS 03-04-2019 CLOPIDOGREL #30/30DS 03-13-2019 ONDANSETRON #60 03-13-2019 PANTOPRAZOLE #90/90DS 03-20-2019 SPIRONOLACTONE #90/90DS 03-20-2019 CYCLOBENZAPRINE #90/90DS PT'S SAID HE WAS TAKING FUROSEMIDE 40MG, HOWEVER IT HAS NOT BEEN FILLED SINCE 06-19-2018 #90; FOR THIS REASON I DID NOT INCLUDE THIS IN THE MED REC. OTC MEDS: VIT C ASPIRIN 81 [employer] Addendum: 04/27/19 at 1609 by ALEXIS LYON CPhT 03-11-2019 TRESIBA 02-23-2019 DULOXETINE #30/30DS 02-23-2019 AMIODARONE #90/90DS
--- NOTE | 2019-04-27 15:28 | Progress Note - Hospitalist ---
Subjective HPI/CC On Admission Date Seen by Provider: Apr 27, 2019 Time Seen by Provider: 09:10 shortness of breath and leg swelling Subjective/Events-last exam He reports improved swelling. He reports improved dyspnea. He denies fevers and chills. He denies pain. Objective Exam Vital Signs Vital Signs Date Time Temp Pulse Resp B/P (MAP) Pulse Ox O2 Delivery O2 Flow Rate FiO2 04/27/19 13:00 67 04/27/19 12:00 94 Nasal Cannula 2.00 04/27/19 08:00 15 04/26/19 19:20 36.7 Capillary Refill : Less Than 3 Seconds General Appearance: No Apparent Distress, WD/WN HEENT: PERRL/EOMI, Pharynx Normal Neck: Normal Inspection, Supple Respiratory: No Respiratory Distress, Crackles (bibasilar) Cardiovascular: Regular Rate, Rhythm, No Murmur Gastrointestinal: Normal Bowel Sounds, Non Tender, Soft Extremity: Normal Inspection, Non Tender, Pedal Edema (2+) Neurologic/Psychiatric: Alert, Oriented x3 Skin: Normal Color, Warm/Dry Lymphatic: No Adenopathy Results/Procedures Lab Laboratory Tests 04/27/19 03:00 Patient resulted labs reviewed. Imaging: Reviewed Imaging Report Assessment/Plan Assessment and Plan Assess & Plan/Chief Complaint Acute exacerbation of HFrEF CAD Elevated troponin Transition to Torsemide Increase Coreg Cardiology consulted, appreciate recs CKD Cr improving, unsure of baseline Continue Torsemide for decompensated heart failure Will need nephrology referral on discharge COPD with acute exacerbation Was wheezing in ER- started on prednisone Improved MAT protocol Pulm consulted, appreciate recs IDDMII Continue Home insulin SSI Tobacco abuse recommended cessation down from 2ppd to 5 cig/day Diagnosis/Problems Diagnosis/Problems (1) Acute on chronic systolic heart failure Status: Acute (2) Acute kidney injury superimposed on chronic kidney disease Status: Acute (3) COPD with acute exacerbation Status: Acute (4) T2DM (type 2 diabetes mellitus) Status: Chronic Qualifiers: Diabetes mellitus jail insulin use: with jail use Clinical Quality Measures DVT/VTE Risk/Contraindication: Risk Factor Score Per Nursin RFS Level Per Nursing on Admit: 4+=Very High LAVONNE MATA MD Apr 27, 2019 15:28 POS
[2019-04-27 16:00] VITALS: BP 112/68
[2019-04-27 16:02] VITALS: BP 113/72
[2019-04-27] MEDS ORDERED: AMIO200T4 PO (16:08)
[2019-04-27] MEDS ORDERED: DULO20CA19 PO (16:08)
[2019-04-27] MEDS ORDERED: INSU200I4 SQ (16:08)
--- NOTE | 2019-04-27 16:44 | NUR ---
Patient transfered from [facility] to 410. Report received from MAHIN Rios. Care assumed by this nurse at this time. I agree with previous RN's assessment.
[2019-04-27 16:57] VITALS: BP 130/76
[2019-04-27] MEDS: HYDROcodone/APAP 10 MG/325 MG (LORTAB) TAB PO PRN ×2 (18:36→23:25)
[2019-04-27 19:35] VITALS: BP 117/72
[2019-04-27 23:50] VITALS: BP 130/80
[2019-04-28 04:00] VITALS: BP 118/76
[2019-04-28] MEDS: inSUlin ASPART (NovoLOG) 1 UNIT/0.01 ML (CHARGE PER UNIT) SC SCH ×2 (05:19→11:17)
[2019-04-28] MEDS: predniSONE 20 MG TAB PO SCH (06:06)
[2019-04-28] MEDS: TORSEMIDE 20 MG (DEMADEX) TAB PO SCH (06:06)
[2019-04-28] MEDS: HYDROcodone/APAP 10 MG/325 MG (LORTAB) TAB PO PRN (06:06)
--- NOTE | 2019-04-28 06:20 | Pulmonary Progress Note ---
Subjective Time Seen by a Provider: 06:19 Subjective/Events-last exam Pt is doing better. Sepsis Event Evaluation Height, Weight, BMI Height: '" Weight: lbs. oz. kg; 32.65 BMI Method: Exam Exam Vital Signs Date Time Temp Pulse Resp B/P (MAP) Pulse Ox O2 Delivery O2 Flow Rate FiO2 04/28/19 04:00 35.8 61 18 118/76 (90) 95 Nasal Cannula 2.00 04/28/19 01:03 69 04/27/19 23:50 36.1 63 16 130/80 (97) 96 Nasal Cannula 2.00 04/27/19 21:00 Nasal Cannula 1.00 04/27/19 20:40 91 Nasal Cannula 1.00 04/27/19 19:35 36.8 67 18 117/72 (87) 94 Nasal Cannula 2.00 04/27/19 19:00 66 04/27/19 16:57 36.2 82 18 130/76 (94) 100 Nasal Cannula 2.00 04/27/19 16:02 36.8 73 18 113/72 (86) 98 Nasal Cannula 2.00 04/27/19 16:00 36.2 65 14 112/68 (83) 95 Nasal Cannula 2.00 04/27/19 16:00 94 Nasal Cannula 2.00 04/27/19 13:00 67 04/27/19 12:00 94 Nasal Cannula 2.00 04/27/19 09:43 90 Nasal Cannula 1.00 04/27/19 09:00 96 Nasal Cannula 2.00 04/27/19 08:00 69 15 Nasal Cannula 2.00 04/27/19 08:00 94 Nasal Cannula 2.00 04/27/19 07:00 72 I & O 04/28/19 07:00 Intake Total 2260 ml Output Total 1200 ml Balance 1060 ml Height & Weight Height: '" Weight: lbs. oz. kg; 32.65 BMI Method: General Appearance: No Apparent Distress, WD/WN HEENT: Normal ENT Inspection, Moist Mucous Membranes; No Scleral Icterus (L), No Scleral Icterus (R) Neck: Normal Inspection, Supple; No Thyromegaly Respiratory: Lungs Clear, No Accessory Muscle Use, No Respiratory Distress Cardiovascular: Regular Rate, Rhythm, Systolic Murmur Capillary Refill: Less Than 3 Seconds Gastrointestinal: normal bowel sounds, non tender Extremity: No Calf Tenderness, Swelling (3+ pitting edema to knees) Neurologic/Psychiatric: Alert, Oriented x3, Normal Mood/Affect; No Aphasia, No Facial Droop Skin: Normal Color, Warm/Dry Lymphatic: No Adenopathy Results Lab Laboratory Tests 04/27/19 03:00 Assessment/Plan Assessment/Plan COPDAE with hypoxia -SVNS, advair -Prednisone - D/C -Oxygen - Pt has home 02 CHFAE -Cardiology consulted. NATALIA -Monitor Pt is ok for discharge from pulmonary standpoint. I will f/u with him in 1-2 wks in office. WIL LEÓN DO Apr 28, 2019 06:19 POS
[2019-04-28 06:48] LABS: CALCIUM 9.4 MG/DL (8.5-10.1); CREATININE SERUM 2.57 MG/DL (0.60-1.30); POTASSIUM 3.9 MMOL/L (3.6-5.0)
--- NOTE | 2019-04-28 06:53 | NUR ---
DR. LEÓN AGREED TO DISCHARGE PATIENT WITH APPROVAL OF OTHER PHYSICIANS. ORDERED FOLLOW UP WITH DR. LEÓN IN 1-2 WEEKS.
[2019-04-28] MEDS: RT-ALBUTEROL/IPRATROPIUM 3 ML (DUONEB) VIAL INH SCH (07:32)
[2019-04-28] MEDS ORDERED: RT-ADVAIR HFA 115/21 MCG PER PUFF IH SCH (08:00)
[2019-04-28 08:30] VITALS: BP 118/62
--- NOTE | 2019-04-28 08:47 | Progress Note - Cardiology ---
Cardiology SOAP Progress Note Subjective: Sitting up in a chair at the bedside. Wants to go home today. No c/o CP, palpitations, syncope or near syncope. Feels SOB is much improved. Objective: I&O/Vital Signs 04/27/19 04/28/19 04/28/19 04/28/19 23:50 01:03 04:00 06:57 Temp 36.1 35.8 Pulse 63 69 61 65 Resp 16 18 B/P (MAP) 130/80 (97) 118/76 (90) Pulse Ox 96 95 O2 Delivery Nasal Cannula Nasal Cannula O2 Flow Rate 2.00 2.00 04/28/19 07:32 Pulse Ox 90 O2 Delivery Room Air 04/28/19 00:00 Intake Total 2160 ml Output Total 1200 ml Balance 960 ml Constitutional: AAO x 3, well-developed, well-nourished Respiratory: No accessory muscle use, No respiratory distress; chest expansion is symmetric, chest is bilaterally symmetric, other (prolonged exp phase) Cardiovascular: regular rate-rhythm; No JVD; S1 and S2 Gastrointestional: No tender; soft, round, audible bowel sounds Extremities: swelling (mild to mod bilat LE swelling) Neurologic/Psychiatric: grossly intact Skin: No rash on exposed areas, No ulcerations on exposed areas Results/Procedures: Labs Laboratory Tests 04/27/19 11:35: Glucometer 317H 04/27/19 15:38: Glucometer 335H 04/27/19 20:50: Glucometer 408*H 04/28/19 05:16: Glucometer 124H 04/28/19 05:37: Sodium Level 136, Potassium Level 3.9, Chloride Level 96L, Carbon Dioxide Level 28, Anion Gap 12, Blood Urea Nitrogen 53H, Creatinine 2.57H, Estimat Glomerular Filtration Rate 25, BUN/Creatinine Ratio 21, Glucose Level 120H, Calcium Level 9.4 Laboratory Tests 04/27/19 03:00 04/28/19 05:37 A/P: Assessment: Shortness of breath, likely multifactorial (see below) Ac on chronic systolic CHF due to ischemic cardiomyopathy and recent noncompliance with diuretics - improved Ac exac of COPD, likely due to lower resp tract infection CKD stage 4 - previously following with nephrology services until he moved Echocardiogram of 04-26-19 showed concentric hypertrophy. LVEF 20-25%. Ak inesis of the anteroseptal myocardium. Grade 2 diastolic dysfunction. LA severely dilated. Mod MR and TR. RVSP approx 46 mmHg CAD. Pt reports the following. CO leading to CABG in 1994. 5 cor stents between 1994 and 2003 Pt reports ischemic cardiomyopathy leading to ICD (he thinks BiV) in or around 2009, revised in 2014, last checked about 3 months ago in [place], [place]. Current device is a [employer] device, he says DM II, insulin-requiring Chronic tobacco use (currently smoking 5 cigs/day) H/o hypertension Plan: * Renal function improved * Monitor labs closely * Continue Carvedilol * Not suitable for ISMAEL-inhib or ARB due renal failure of undetermined age and etiology * Advised to refrain from any tobacco use * Continue current medication regimen * OK to discharge home from cardiac stand point with out pt f/u Physician Assessment Physician Assessment Feels better. Much less short of breath. Denies palp or syncope or cp. Wishes to go home Lungs: clear Cor: reg Ext: no c/c/e A&R * As documented in our note above that I updated (italics) and as noted below * Risk factor mod reviewed * Educated in management of heart failure * Advised med compliance and outpt card f/u CLIFTON ALMONTE YACHT RIGGER Apr 28, 2019 08:47 GAB MCCORMACK MD [facility] 10:41 POS
[2019-04-28] MEDS ORDERED: TORS20TA3 PO (08:49)
[2019-04-28] MEDS ORDERED: INSU100I14 SQ (09:09)
[2019-04-28] MEDS: ASPIRIN 81 MG CHEW (CHILDREN'S ASA) PO SCH (09:14)
[2019-04-28] MEDS: CARVEDILOL 6.25 MG (COREG) TAB PO SCH (09:14)
--- NOTE | 2019-04-28 09:24 | Discharge Summary ---
Discharge Summary Hospital Course Problems/Dx: (1) Acute on chronic heart failure with reduced ejection fraction and diastolic dysfunction Status: Acute (2) Acute kidney injury superimposed on chronic kidney disease Status: Resolved (3) COPD with acute exacerbation Status: Resolved (4) T2DM (type 2 diabetes mellitus) Status: Chronic Qualifiers: Hospital Course Date of Admission: Apr 25, 2019 at 16:45 Admission Diagnosis : Multifactorial dyspnea Family Physician/Provider: CharitoLocal Physician Date of Discharge: 04/28/19 Discharge Diagnosis: Acute on chronic heart failure with reduced ejection fraction and diastolic dysfunction, COPD with acute exacerbation, Acute kidney injury superimposed on chronic kidney disease Hospital Course: Kingsley Willett is a 63yoM who presented with dyspnea and was admitted with acute on chronic heart failure with reduced ejection fraction and diastolic dysfunction. He was diuresed and his fluid overload and kidney function improved. He was also treated for a COPD exacerbation with nebulizers and steroids and he improved. He will follow up with Dr. Harman in cardiology clinic and Dr. Guzman in pulmonology clinic. He has an appointment to establish care in [place] with Dr. Marlow. Labs and Pending Lab Test: Laboratory Tests 04/27/19 11:35: Glucometer 317H 04/27/19 15:38: Glucometer 335H 04/27/19 20:50: Glucometer 408*H 04/28/19 05:16: Glucometer 124H 04/28/19 05:37: Sodium Level 136, Potassium Level 3.9, Chloride Level 96L, Carbon Dioxide Level 28, Anion Gap 12, Blood Urea Nitrogen 53H, Creatinine 2.57H, Estimat Glomerular Filtration Rate 25, BUN/Creatinine Ratio 21, Glucose Level 120H, Calcium Level 9.4 Home Meds Active Novolog Flexpen (Insulin Aspart) 300 Units/3 Ml Solution 15 Units SQ AC 30 Days Torsemide 20 Mg Tablet 20 Mg PO LASIXBID 30 Days Reported Duloxetine HCl 20 Mg Capsule. 20 Mg PO DAILY Amiodarone HCl 200 Mg Tablet 200 Mg PO DAILY Tresiba Flextouch U-200 (Insulin Degludec) 200 Unit/1 Ml Insuln.pen 40 Unit SQ DAILY Vitamin C (Ascorbic Acid) 500 Mg Capsule.er 500 Mg PO DAILY Centrum Men's Tablet (Multivits,Ca,Min/Iron/FA/Lycop) 1 Each Tablet 1 Each PO DAILY Aspirin EC (Aspirin) 81 Mg Tablet.dr 81 Mg PO DAILY Zolpidem Tartrate 10 Mg Tablet 10 Mg PO HS Protonix (Pantoprazole Sodium) 40 Mg Tablet.dr 40 Mg PO DAILY Clopidogrel (Clopidogrel Bisulfate) 75 Mg Tablet 75 Mg PO DAILY Amlodipine Besylate 5 Mg Tablet 5 Mg PO DAILY Atorvastatin Calcium 40 Mg Tablet 40 Mg PO HS Flomax (Tamsulosin HCl) 0.4 Mg Cap 0.4 Mg PO DAILY Cyclobenzaprine HCl 10 Mg Tablet 10 Mg PO DAILY Ondansetron HCl 4 Mg Tablet 4 Mg PO Q6H PRN Aldactone (Spironolactone) 25 Mg Tablet 25 Mg PO DAILY Dexilant (Dexlansoprazole) 30 Mg Cap..bp 30 Mg PO DAILY Metolazone 5 Mg Tablet 1 Tab PO MO,WE,FR PRN Ciprofloxacin HCl 500 Mg Tablet 500 Mg PO Q12H Hydrocodon-Acetaminophn 10-325 (Hydrocodone/Acetaminophen) 1 Each Tablet 1 Tab PO Q6H PRN Carvedilol 6.25 Mg Tablet 6.25 Mg PO Q12H Doxazosin Mesylate 2 Mg Tablet 2 Mg PO DAILY Bumetanide 2 Mg Tablet 2 Mg PO Q12H Assessment/Pt Instructions Take medications as prescribed. Stop Bumex. Transition back to Torsemide. Prescription sent for Novolog mealtime insulin. Follow up with Dr. Harman, cardiology. Follow up with Dr. Guzman, pulmonology. Establish care with Dr. Marlow in [facility]. Discharge Planning: <30 minutes discharge planning Discharge Instructions Discharge Diet: Low Sodium Diet Activity as Tolerated: Yes Discharge Physical Examination Vital Signs Vital Signs Date Time Temp Pulse Resp B/P (MAP) Pulse Ox O2 Delivery O2 Flow Rate FiO2 04/28/19 07:32 90 Room Air 04/28/19 06:57 65 04/28/19 04:00 35.8 18 118/76 (90) 2.00 General Appearance: No Apparent Distress, WD/WN HEENT: PERRL/EOMI, Pharynx Normal Respiratory: No Respiratory Distress, Crackles (bibasilar), Other (wearing nasal cannula) Cardiovascular: Regular Rate, Rhythm, No Murmur Gastrointestinal: Normal Bowel Sounds, Non Tender, Soft Extremity: Normal Inspection, Non Tender, Pedal Edema (2+) Skin: Normal Color, Warm/Dry Neurologic/Psychiatric: Alert, Oriented x3, Normal Mood/Affect Allergies: Coded Allergies: oxycodone (Verified Allergy, Unknown, 03/28/19) Discharge Summary Date of Admission Apr 25, 2019 at 16:45 Date of Discharge Discharge Date: Apr 28, 2019 Discharge Time: 09:22 Admission Diagnosis Dyspnea- multifactorial Consults/Procedures Consulations Cardiology, Pulmonology Discharge Diagnosis Acute on chronic heart failure with reduced ejection fraction and diastolic dysfunction, COPD with acute exacerbation, Acute kidney injury superimposed on chronic kidney disease (1) Acute on chronic heart failure with reduced ejection fraction and diastolic dysfunction Status: Acute (2) Acute kidney injury superimposed on chronic kidney disease Status: Resolved (3) COPD with acute exacerbation Status: Resolved (4) T2DM (type 2 diabetes mellitus) Status: Chronic Qualifiers: Clinical Quality Measures DVT/VTE Risk/Contraindication: Risk Factor Score Per Nursin RFS Level Per Nursing on Admit: 4+=Very High LAVONNE MATA MD Apr 28, 2019 09:21 POS
== END 2019-04-28 09:11 | disposition home or self-care (01) ==
LOC: EDUNIT# 14:50 → ER 14:52 → UNDOADMOB 16:45 → INTOOBSV 16:45 → ICU 16:45 → 4TH 04-27 16:27 → UNDODISOB 04-28 10:00
PROVIDERS: ADMIT Family Medicine; ATTEND Family Medicine
DX: I50.23 Acute on chronic systolic (congestive) heart failure (principal); I25.5 Ischemic cardiomyopathy; J44.1 Chronic obstructive pulmonary disease with (acute) exacerbation; J44.0 Chronic obstructive pulmonary disease with (acute) lower respiratory infection; I12.9 Hypertensive chronic kidney disease with stage 1 through stage 4 chronic kidney disease, or unspecified chronic kidney disease; N18.3 Chronic kidney disease, stage 3 (moderate); N17.9 Acute kidney failure, unspecified; I25.10 Atherosclerotic heart disease of native coronary artery without angina pectoris; I25.2 Old myocardial infarction; F17.210 Nicotine dependence, cigarettes, uncomplicated; R79.89 Other specified abnormal findings of blood chemistry; E78.00 Pure hypercholesterolemia, unspecified; E11.40 Type 2 diabetes mellitus with diabetic neuropathy, unspecified; F32.9 Major depressive disorder, single episode, unspecified; K21.9 Gastro-esophageal reflux disease without esophagitis; M19.91 Primary osteoarthritis, unspecified site; M54.9 Dorsalgia, unspecified; Z95.1 Presence of aortocoronary bypass graft; Z95.5 Presence of coronary angioplasty implant and graft; Z79.4 Long term (current) use of insulin; Z91.14 Patient's other noncompliance with medication regimen; Z99.81 Dependence on supplemental oxygen; Z95.810 Presence of automatic (implantable) cardiac defibrillator
CPT/HCPCS: 36415; 36600; 71045; 80048; 80053; 80061; 82805; 82962; 83735; 83874; 83880; 84443; 84484; 85025; 85379; 85610; 85730; 93005; 93041; 93306; 94640; 94664; 94760; 96374; G0378

== ENCOUNTER → 2019-05-06 | Outpatient (CLI) | payer MEDICARE, MEDICAID ==
[~2019-05-06] MED LIST changes: +AMIO200T4 PO; +AMLO5TAB9 PO; +ASCO500C15 PO; +ASPI-983 PO; +ATOR40TA70 PO; +BUME2TAB7 PO; +CARV6.252 PO; +CIPR500T4 PO; +CLOP75TA28 PO; +CYCL10TA9 PO; +DEXL30CA2 PO; +DOXA2TAB2 PO; +DULO20CA19 PO; +FURO40TA4 PO; +HYDR-3820 PO; +INSU100I14 SQ; +INSU200I4 SQ; +METO5TAB6 PO; +MULT-1030 PO; +ONDA4TAB10 PO; +PANT40TA2 PO; +SPIR25TA PO; +TAMS0.4C98 PO; +TORS20TA3 PO; +ZOLP10TA5 PO
[2019-05-06 13:18] LABS: CREATININE SERUM 2.75 MG/DL (0.60-1.30); POTASSIUM 4.8 MMOL/L (3.6-5.0)
== END ==
LOC: LAB FS 10:35
PROVIDERS: ATTEND Nurse Practitioner Family
DX: I50.23 Acute on chronic systolic (congestive) heart failure (principal)
CPT/HCPCS: 36415; 80048

== ENCOUNTER → 2019-05-15 | Outpatient (CLI) | payer MEDICARE, MEDICAID ==
[2019-05-15 10:56] LABS: POTASSIUM 4.9 MMOL/L (3.6-5.0)
[2019-05-15 10:57] LABS: CALCIUM 9.3 MG/DL (8.5-10.1); CREATININE SERUM 3.12 MG/DL (0.60-1.30)
== END ==
LOC: LAB FS 10:21
PROVIDERS: ATTEND Nurse Practitioner Family
DX: N18.9 Chronic kidney disease, unspecified (principal)
CPT/HCPCS: 36415; 80048

== ENCOUNTER → 2019-05-26 | Outpatient (CLI) | payer MEDICARE, MEDICAID ==
[~2019-05-26] VITALS: Ht 175 cm; Wt 97.0 kg
[~2019-05-26] MED LIST changes: +CATHETER FLUSH 10 ML SYR IV PRN; +REGADENOSON 0.4 MG/5 ML SYR (LEXISCAN) IV ONE
[2019-05-26 09:11] VITALS: BP 114/63
[2019-05-26 09:14] VITALS: BP 110/80
--- NOTE | 2019-05-26 16:03 | STRESS TEST ---
DATE OF SERVICE: 05/26/2019 RESTING AND POST REGADENOSON TECHNETIUM-99M TETROFOSMIN SPECT CT IMAGING ORDERING PHYSICIAN: Messi Harman MD, MAIRA, FACP, FACC. PRIMARY PHYSICIAN: Kamaljit Blanco MD. CLINICAL DIAGNOSES: Coronary artery disease, hypertension, tobacco use, hyperlipidemia. Baseline images were carried out after injection of 10.16 mCi of technetium-99m Tetrofosmin. This was followed by 0.4 mg regadenoson and 29.1 mCi of technetium-99m Tetrofosmin for stress imaging. The electrocardiogram showed atrial fibrillation throughout the study. The electrocardiogram was consistent with old anteroseptal myocardial infarction. The electrocardiogram did not change significantly with regadenoson infusion. The patient reported shortness of breath and a cough following regadenoson infusion, which resolved in a few minutes. Review of images at rest and following stress indicates marked cardiomegaly and predominantly fixed perfusion defect at the apex and in the lateral wall. There is apical and basal lateral wall akinesis. There is global hypokinesis. Left ventricular ejection fraction is calculated to be 27%. Left ventricular end diastolic volume is 311 mL. TID is absent (1.02). CONCLUSIONS: 1. This study is indicative of apical and basal lateral myocardial infarction without significant ischemia. 2. Severe cardiomegaly with marked impairment of global left ventricular systolic function and left ventricular ejection fraction 27%. 3. Apical and basal lateral akinesis and global hypokinesis. Job ID: [id number] DocumentID: [id number] Dictated Date: 05/26/2019 15:24:20 Can Marker Date: 05/26/2019 16:03:09 Dictated By: MESSI HARMAN MD, MAIRA, FACP, FACC,
== END ==
LOC: CARD 07:20
PROVIDERS: ATTEND Internal Medicine Cardiovascular Disease
DX: I25.10 Atherosclerotic heart disease of native coronary artery without angina pectoris (principal); I13.10 Hypertensive heart and chronic kidney disease without heart failure, with stage 1 through stage 4 chronic kidney disease, or unspecified chronic kidney disease; I25.5 Ischemic cardiomyopathy; N18.4 Chronic kidney disease, stage 4 (severe); E78.5 Hyperlipidemia, unspecified; I25.2 Old myocardial infarction; Z72.0 Tobacco use
CPT/HCPCS: 78452; 93017

== ENCOUNTER → 2019-06-24 | Outpatient (CLI) | payer MEDICAID, MEDICARE ==
[~2019-06-24] MED LIST changes: -CATHETER FLUSH 10 ML SYR IV PRN; -REGADENOSON 0.4 MG/5 ML SYR (LEXISCAN) IV ONE; +RT-ALBUTEROL SULF 2.5 MG/3 ML PRE-MIX VIAL INH ONE
--- NOTE | 2019-06-24 14:25 | Diagnostic Imaging Report ---
CT CHEST WO TECHNIQUE: Multiple contiguous axial images were obtained through the chest without the use of intravenous contrast. All CT scans use one or more of the following dose optimizing techniques: automated exposure control, MA and/or KvP adjustment based on a patient size and exam type, or iterative reconstruction. INDICATION: Dyspnea and cough. COMPARISON: Chest radiograph of 04/27/2019 FINDINGS: Lungs and airway: There is a small amount of retained secretions within the trachea. There was a continuation seen throughout the lungs. There are scattered areas of smooth interlobular septal thickening. No consolidation or concerning pulmonary nodule. Pleura: Small bilateral pleural effusions. No pneumothorax. Heart and mediastinum: Thyroid is normal where visualized. No supraclavicular or axillary lymphadenopathy. No mediastinal, discrete hilar or juxtaphrenic lymphadenopathy. Heart is markedly enlarged but without pericardial effusion. Status post CABG. Left pectoral transvenous pacemaker has electrodes terminating in the right atrium and right ventricle. Normal caliber thoracic aorta. Upper abdomen: Cholecystectomy. Bilateral renal cysts are likely present. A splenule is noted. No worrisome focal osseous lesion. Electrodes Musculoskeletal: Electrodes from an epidural spinal stimulator terminate in the posterior epidural space at the level of the T7 and T8 vertebral bodies. No concerning focal osseous lesion. IMPRESSION: 1. Marked cardiomegaly with features suggestive of mild congestive heart failure. This includes mosaic attenuation lungs due to mild pulmonary edema and small bilateral pleural effusions. Dictated by: Dictated on workstation # [id number]
[2019-06-24 15:10] LABS: ABG BASE EXCESS 3.5 MMOL/L (-2.5-2.5); ABG OXYGEN SATURATION 93 % (94-100); ABG PCO2 43 MMHG (35-45); ABG PH 7.43 (7.37-7.43); ABG PO2 65 MMHG (79-93); ALLENS TEST POSITIVE; INSPIRED O2 3 L; PATIENT TEMP 36.9; VENTILATOR NO
== END ==
LOC: RAD 13:25
PROVIDERS: ATTEND Nurse Practitioner Family
DX: J44.9 Chronic obstructive pulmonary disease, unspecified (principal); G47.33 Obstructive sleep apnea (adult) (pediatric); G47.36 Sleep related hypoventilation in conditions classified elsewhere; Z72.0 Tobacco use; I51.7 Cardiomegaly; J90 Pleural effusion, not elsewhere classified
CPT/HCPCS: 36600; 71250; 82805; 94060; 94726; 94729

== ENCOUNTER 2019-08-13 20:25 | Observation (INO) | payer MEDICARE ==
[~2019-08-13] VITALS: Ht 175.3 cm; Wt 88.1 kg
[~2019-08-13 20:25] MED LIST changes: +ACHYD1T PO; -HYDR-3820 PO; +ONDA-105 PO; -ONDA4TAB10 PO; -RT-ALBUTEROL SULF 2.5 MG/3 ML PRE-MIX VIAL INH ONE; -TAMS0.4C98 PO; +TMSL.4C PO
[2019-08-13 20:41] LABS: BASOPHILS % (AUTO) 0 % (0-10); EOSINOPHILS # (AUTO) 0.3 10^3/uL (0.0-0.3); EOSINOPHILS % (AUTO) 3 % (0-10); HEMATOCRIT 41 % (40-54); HEMOGLOBIN 13.7 G/DL (13.3-17.7); LYMPHOCYTES # (AUTO) 1.7 X 10^3 (1.0-4.0); LYMPHOCYTES % (AUTO) 18 % (12-44); MEAN CORPUSCULAR HEMOGLOBIN 26 PG (25-34); MEAN CORPUSCULAR HGB CONC 33 G/DL (32-36); MEAN CORPUSCULAR VOLUME 79 FL (80-99); MEAN PLATELET VOLUME 13.1 FL (7.4-10.4); MONOCYTES # (AUTO) 0.7 X 10^3 (0.0-1.0); MONOCYTES % (AUTO) 7 % (0-12); NEUTROPHILS # (AUTO) 6.7 X 10^3 (1.8-7.8); NEUTROPHILS % (AUTO) 71 % (42-75); PLATELET COUNT 127 10^3/uL (130-400); RED CELL DISTRIBUTION WIDTH 15.4 % (10.0-14.5); WHITE BLOOD COUNT 9.4 10^3/uL (4.3-11.0)
--- NOTE | 2019-08-13 20:55 | Diagnostic Imaging Report ---
INDICATION: Weakness and insulin-dependent diabetes. COMPARISON: Prior examination from 04/27/2019. EXAMINATION: Single view of the chest was obtained. FINDINGS: There is cardiomegaly. There is moderate congestive failure. There is no pleural effusion or pneumothorax. There has been a previous median sternotomy and coronary artery bypass graft. Pacemaker overlies the left hemithorax. IMPRESSION: Cardiomegaly and moderate congestive failure. Dictated by: Dictated on workstation # [id number]
[2019-08-13 20:58] LABS: ALBUMIN 4.3 GM/DL (3.2-4.5); BILIRUBIN,TOTAL 0.4 MG/DL (0.1-1.0); CALCIUM 9.5 MG/DL (8.5-10.1); CREATININE SERUM 4.43 MG/DL (0.60-1.30); MAGNESIUM 1.9 MG/DL (1.6-2.4); POTASSIUM 3.5 MMOL/L (3.6-5.0); TOTAL PROTEIN 7.8 GM/DL (6.4-8.2)
[2019-08-13] MEDS ORDERED: NS IV 1000 ML 1,000 ML IV ONE (21:14)
[2019-08-13 22:00] LABS: BILIRUBIN,URINE NEGATIVE (NEGATIVE); CLARITY,URINE CLEAR; COLOR,URINE YELLOW; GLUCOSE, URINE (UA) NEGATIVE (NEGATIVE); KETONES,URINE NEGATIVE (NEGATIVE); LEUKOCYTE ESTERASE ,URINE NEGATIVE (NEGATIVE); NITRITE,URINE NEGATIVE (NEGATIVE); PH,URINE 5.5 (5-9); PROTEIN,URINE NEGATIVE (NEGATIVE)
--- NOTE | 2019-08-13 22:02 | NUR ---
Contacted [employer] call center requesting interrogation on pacemaker/defibrillator.
--- NOTE | 2019-08-13 22:02 | ED Cardiac General ---
History of Present Illness General Chief Complaint: General Problems/Pain Stated Complaint: WEAKNESS Nursing Triage Note: Pt to room #5 via [facility] ems cart from home with c/o episode of x1 episode of witnessed altered mental status prior to dispatching ems. Ems advise upon arrival on scene, pt had returned to baseline mentation (A&OX4). [facility] ems accessed 18g iv to R a/c. Upon arrival pt remains alert and oriented to person, place, time, et situation. Pt denies LOC, CP, or SOA. Pt reports intermittent cough for approx 2-3wks. Pt denies pain or discomfort. Source: patient, family, EMS, old records Exam Limitations: no limitations History of Present Illness Date Seen by Provider: Aug 13, 2019 Time Seen by Provider: 20:30 Initial Comments This 64-year-old gentleman presents to the emergency room via [facility] for reasons of altered mental status and lightheadedness. Patient reports he had an episode of extreme lightheadedness. Family noted altered mental status and activated EMS. By the time of EMS arrival patient was alert and oriented. He had no focal neurologic deficits. They noted he was a bit wobbly on his feet and required assistance to the cot. Patient has history of significant heart failure and has been undergoing significant diuresis recently. He has coronary artery disease and chronic kidney disease as well. Review of his chart notes a ejection fraction of 20-25 percent on echocardiogram from April with diastolic failure and pulmonary hypertension. A stress test in May showed infarct without ischemia. He elected to come to [facility] instead of a closer hospital because Dr. Hraman is his extractor and wringer operator. He denies having chest pain at any point this evening. Family reports he has had similar but less intense episodes recently as well. Blood sugar was 120s at home and 140s for EMS. Patient also reports a mild cough for the past few weeks. Patient's primary care provider is Dr. Alvarez. His extractor and wringer operator is Dr. Harman. His radiology tech is Dr. Haro at [facility]. Allergies and Home Medications Allergies Coded Allergies: oxycodone (Verified Allergy, Unknown, 03/28/19) Home Medications Amiodarone HCl 200 Mg Tablet, 200 MG PO DAILY, (Reported) Amlodipine Besylate 5 Mg Tablet, 5 MG PO DAILY, (Reported) Ascorbic Acid 500 Mg Capsule.er, 500 MG PO DAILY, (Reported) Aspirin 81 Mg Tablet.dr, 81 MG PO DAILY, (Reported) Atorvastatin Calcium 40 Mg Tablet, 40 MG PO HS, (Reported) Carvedilol 6.25 Mg Tablet, 6.25 MG PO Q12H, (Reported) Clopidogrel Bisulfate 75 Mg Tablet, 75 MG PO DAILY, (Reported) Cyclobenzaprine HCl 10 Mg Tablet, 10 MG PO DAILY, (Reported) Dexlansoprazole 30 Mg Cap..bp, 30 MG PO DAILY, (Reported) Doxazosin Mesylate 2 Mg Tablet, 2 MG PO DAILY, (Reported) Duloxetine HCl 20 Mg Capsule.dr, 20 MG PO DAILY, (Reported) Hydrocodone/Acetaminophen 1 Each Tablet, 1 TAB PO Q6H PRN for PAIN-MODERATE (4- 6), (Reported) Insulin Aspart 300 Units/3 Ml Solution, 15 UNITS SQ AC Prescribed by: LAVONNE MATA on 04/28/19 0909 Insulin Degludec 200 Unit/1 Ml Insuln.pen, 40 UNIT SQ DAILY, (Reported) Metolazone 5 Mg Tablet, 1 TAB PO MO,WE,FR PRN for SWELLING, (Reported) Multivits,Ca,Min/Iron/FA/Lycop 1 Each Tablet, 1 EACH PO DAILY, (Reported) Ondansetron HCl 4 Mg Tablet, 4 MG PO Q6H PRN for NAUSEA/VOMITING-1ST LINE, (Reported) Spironolactone 25 Mg Tablet, 25 MG PO DAILY, (Reported) Tamsulosin HCl 0.4 Mg Cap, 0.4 MG PO DAILY, (Reported) Torsemide 20 Mg Tablet, 20 MG PO LASIXBID Prescribed by: LAVONNE MATA on 04/28/19 0849 Zolpidem Tartrate 10 Mg Tablet, 10 MG PO HS, (Reported) Patient Home Medication List Home Medication List Reviewed: Yes Review of Systems Review of Systems Constitutional: no symptoms reported EENTM: No Symptoms Reported Respiratory: No Symptoms Reported Cardiovascular: See HPI Gastrointestinal: No Symptoms Reported Genitourinary: See HPI Musculoskeletal: no symptoms reported Skin: no symptoms reported Psychiatric/Neurological: See HPI Endocrine: No Symptoms Reported Hematologic/Lymphatic: No Symptoms Reported Past Uusoupt-Mdthxg-Dcwjjt Hx Past Med/Social Hx: Reviewed and Corrections made Patient Social History Alcohol Use: Denies Use Recreational Drug Use: No Smoking Status: Current Everyday Smoker Type Used: Cigarettes 2nd Hand Smoke Exposure: No Recent Foreign Travel: No Contact w/Someone Who Travel: No Recent Infectious Disease Expo: No Recent Hopitalizations: No Immunizations Up To Date Date of Pneumonia Vaccine: Apr 25, 2016 Date of Influenza Vaccine: Apr 03, 2019 Seasonal Allergies Seasonal Allergies: No Past Medical History Surgeries: Yes (Spinal Stimulator) Appendectomy, CABG, Defibrillator Respiratory: Yes COPD Cardiac: Yes (CHF) Coronary Artery Disease, Heart Attack, High Cholesterol, Hypertension Neurological: Yes Neuropathy Genitourinary: Yes Renal Failure Gastrointestinal: Yes Gastroesophageal Reflux Musculoskeletal: Yes Arthritis, Chronic Back Pain Endocrine: Yes Diabetes, Insulin dep HEENT: No Cancer: No Psychosocial: Yes Depression Blood Disorders: No Adverse Reaction/Blood Tranf: No Family Medical History Reviewed Nursing Family Hx Cardiovascular disease 19 FATHER Diabetes mellitus 19 FATHER FH: CHF (congestive heart failure) 19 FATHER Myocardial infarction G8 BROTHER Physical Exam Vital Signs Vital Signs - First Documented Capillary Refill : Less Than 3 Seconds Height, Weight, BMI Height: '" Weight: lbs. oz. kg; 28.00 BMI Method: General Appearance: No Apparent Distress, WD/WN HEENT: PERRL/EOMI, Normal ENT Inspection Neck: Normal Inspection Respiratory: Chest Non Tender, Lungs Clear, Normal Breath Sounds, No Accessory Muscle Use, No Respiratory Distress Cardiovascular: Regular Rate, Rhythm, No Edema, No Murmur, Normal Peripheral Pulses Gastrointestinal: Normal Bowel Sounds, Non Tender, Soft Extremity: Normal Inspection, No Pedal Edema Neurologic/Psychiatric: Alert, Oriented x3, No Motor/Sensory Deficits, Normal Mood/Affect, senior behavioral scientist II-XII Norm as Tested Skin: Normal Color, Warm/Dry Progress/Results/Core Measures Results/Orders Lab Results Laboratory Tests Test 08/13/19 20:30 Range/Units White Blood Count 9.4 4.3-11.0 10^3/uL Red Blood Count 5.19 4.35-5.85 10^6/uL Hemoglobin 13.7 13.3-17.7 G/DL Hematocrit 41 40-54 % Mean Corpuscular Volume 79 L 80-99 FL Mean Corpuscular Hemoglobin 26 25-34 PG Mean Corpuscular Hemoglobin Concent 33 32-36 G/DL Red Cell Distribution Width 15.4 H 10.0-14.5 % Platelet Count 127 L 130-400 10^3/uL Mean Platelet Volume 13.1 H 7.4-10.4 FL Neutrophils (%) (Auto) 71 42-75 % Lymphocytes (%) (Auto) 18 12-44 % Monocytes (%) (Auto) 7 0-12 % Eosinophils (%) (Auto) 3 0-10 % Basophils (%) (Auto) 0 0-10 % Neutrophils # (Auto) 6.7 1.8-7.8 X 10^3 Lymphocytes # (Auto) 1.7 1.0-4.0 X 10^3 Monocytes # (Auto) 0.7 0.0-1.0 X 10^3 Eosinophils # (Auto) 0.3 0.0-0.3 10^3/uL Basophils # (Auto) 0.0 0.0-0.1 10^3/uL Sodium Level 134 L 135-145 MMOL/L Potassium Level 3.5 L 3.6-5.0 MMOL/L Chloride Level 92 L 98-107 MMOL/L Carbon Dioxide Level 29 21-32 MMOL/L Anion Gap 13 5-14 MMOL/L Blood Urea Nitrogen 113 *H 7-18 MG/DL Creatinine 4.43 H 0.60-1.30 MG/DL Estimat Glomerular Filtration Rate 14 BUN/Creatinine Ratio 26 Glucose Level 112 H 70-105 MG/DL Calcium Level 9.5 8.5-10.1 MG/DL Corrected Calcium 9.3 8.5-10.1 MG/DL Magnesium Level 1.9 1.6-2.4 MG/DL Total Bilirubin 0.4 0.1-1.0 MG/DL Aspartate Amino Transf (AST/SGOT) 23 5-34 U/L Alanine Aminotransferase (ALT/SGPT) 17 0-55 U/L Alkaline Phosphatase 83 40-136 U/L Troponin I 0.087 H <0.028 NG/ML C-Reactive Protein High Sensitivity 0.41 0.00-0.50 MG/DL B-Type Natriuretic Peptide 636.9 H <100.0 PG/ML Total Protein 7.8 6.4-8.2 GM/DL Albumin 4.3 3.2-4.5 GM/DL Micro Results Microbiology 08/13/19 Influenza Types A,B Antigen (MARIELY) - Final, Complete My Orders Orders - NGA PAGE MD BNP (08/13/19 20:33) Cbc With Automated Diff (08/13/19 20:33) Comprehensive Metabolic Panel (08/13/19 20:33) Hs C Reactive Protein (08/13/19 20:33) Magnesium (08/13/19 20:) Troponin I (08/13/19 20:33) Ua Culture If Indicated (08/13/19 20:33) Influenza A And B Antigens (08/13/19 20:33) Ed Iv/Invasive Line Start (08/13/19 20:33) Ekg Tracing (08/13/19:) O2 (08/13/19 20:33) Monitor-Rhythm Ecg Trace Only (08/13/19 20:33) Chest 1 View, Ap/Pa Only (08/13/19 20:42) Ns Iv 1000 Ml (Sodium Chloride 0.9%) (08/13/19 21:14) Medications Given in ED Current Medications Medications Dose Ordered Sig/Rhys Route Start Time Stop Time Status Last Admin Dose Admin Sodium Chloride 1,000 ml @ 0 mls/hr Q0M ONCE IV 08/13/19 21:14 08/13/19 21:15 DC 08/13/19 21:19 0 MLS/HR Vital Signs/I&O 08/13/19 08/13/19 20:25 20:25 Temp 36.7 Pulse 69 Resp 18 B/P (MAP) 118/81 (93) Pulse Ox 96 97 O2 Delivery Nasal Cannula Room Air O2 Flow Rate 1.00 1.00 Blood Pressure Mean: 93 Progress Progress Note : Progress Note Workup revealed acute on chronic kidney failure. We discussed transfer to [facility] for nephrology consultation versus admission here. Patient declined transfer to [facility] and requested either admission to [facility] or returning home. I discussed the case with Dr. Rodriguez who is agreeable to admission. I also discussed the case with Dr. Soto on half of Dr. Harman. Patient will have gentle hydration through the night. Labs will be reassessed in the morning. Dr. Soto would like me to hold blood pressure medications and diuretics for the time being. IV fluids were started in the emergency room. Troponin was also elevated. This seems to be a chronic state based on review of prior labs. We will check troponin again in the morning. Initial ECG Impression Date: Aug 13, 2019 Initial ECG Impression Time: 20:31 Initial ECG Rate: 66 Initial ECG Rhythm: Normal Sinus Comment Sinus rhythm with no ST elevation or depression. No change in intervals or axis deviation. Similar to prior. Diagnostic Imaging Diagonstic Imaging: Xray Plain Films/CT/US/NM/MRI: chest Comments Chest x-ray viewed by me and report reviewed. See report below: NAME: LILIANA PARRY JR [facility] REC#: [id number] PT STATUS: REG ER : 1955 PHYSICIAN: NGA PAGE MD ADMIT DATE: 08/13/19/ER Signed Date of Exam:08/13/19 CHEST 1 VIEW, AP/PA ONLY INDICATION: Weakness and insulin-dependent diabetes. COMPARISON: Prior examination from 04/27/2019. EXAMINATION: Single view of the chest was obtained. FINDINGS: There is cardiomegaly. There is moderate congestive failure. There is no pleural effusion or pneumothorax. There has been a previous median sternotomy and coronary artery bypass graft. Pacemaker overlies the left hemithorax. IMPRESSION: Cardiomegaly and moderate congestive failure. Dictated by: Dictated on workstation # [id number] Dict: 08/13/192050 Trans: 08/13/192126 [facility] [id number] Interpreted by: MAEGAN CLAYTON MD Electronically signed by: MAEGAN CLAYTON MD 08/13/192126 Departure Communication (Admissions) Time/Spoke to Admitting Phy: 21:30 Dr. Rodriguez Time/Spoke to Consulting Phy: 21:40 Dr. Soto Impression Primary Impression: Acute on chronic kidney failure Qualified Codes: N17.9 - Acute kidney failure, unspecified; N18.9 - Chronic kidney disease, unspecified Additional Impressions: CHF, chronic Qualified Codes: I50.32 - Chronic diastolic (congestive) heart failure Lightheadedness Altered mental status Qualified Codes: R41.82 - Altered mental status, unspecified Elevated troponin Disposition: ADMITTED INPATIENT Condition: Improved Admissions Decision to Admit Reason: Admit from ER (General) Decision to Admit/Date: Aug 13, 2019 Time/Decision to Admit Time: 21:15 Departure-Patient Inst. Referrals: SUJIT ALVAREZ MD (PCP/Family) Primary Care Physician NGA PAGE MD Aug 13, 2019 22:02
--- NOTE | 2019-08-13 22:11 | NUR ---
[employer] contacted provider for device interrogation.
[2019-08-13 22:15] LABS: BACTERIA,URINE NEGATIVE /HPF; SQUAMOUS EPITHELIAL CELL,UR 0-2 /HPF
--- NOTE | 2019-08-13 22:40 | NUR ---
LILIANA PARRY JR. admitted to room 432-1, with an admitting diagnosis of ACUTE ON CHRONIC RENAL FAILURE, HEART FAILURE, on 08/13/19 from ED via CART, accompanied by STAFF AND FAMILY. LILIANA PARRY JR introduced to surroundings, call light, bed controls, phone, TV, temperature control, lights, meal times, smoking policy, visitor policy, side rail policy, bathrooms and showers. Patient Rights given to patient in the handbook.LILIANA PARYR JR verbalizes understanding that [facility] is not responsible for the loss or damage to any personal effects or valuables that are kept in the patients posession during their hospitalization.
[2019-08-13 22:51] VITALS: BP 121/73
[2019-08-13 23:09] VITALS: BP 121/73
[2019-08-14 04:00] VITALS: BP 125/60
[2019-08-14] MEDS: inSUlin ASPART (NovoLOG) 1 UNIT/0.01 ML (CHARGE PER UNIT) SC SCH ×2 (05:53→09:30)
[2019-08-14 06:41] LABS: BASOPHILS % (AUTO) 0 % (0-10); EOSINOPHILS # (AUTO) 0.2 10^3/uL (0.0-0.3); EOSINOPHILS % (AUTO) 3 % (0-10); HEMATOCRIT 41 % (40-54); HEMOGLOBIN 13.6 G/DL (13.3-17.7); LYMPHOCYTES # (AUTO) 1.6 X 10^3 (1.0-4.0); LYMPHOCYTES % (AUTO) 20 % (12-44); MEAN CORPUSCULAR HEMOGLOBIN 26 PG (25-34); MEAN CORPUSCULAR HGB CONC 33 G/DL (32-36); MEAN CORPUSCULAR VOLUME 80 FL (80-99); MEAN PLATELET VOLUME 13.6 FL (7.4-10.4); MONOCYTES # (AUTO) 0.6 X 10^3 (0.0-1.0); MONOCYTES % (AUTO) 7 % (0-12); NEUTROPHILS # (AUTO) 5.8 X 10^3 (1.8-7.8); NEUTROPHILS % (AUTO) 71 % (42-75); PLATELET COUNT 123 10^3/uL (130-400); RED CELL DISTRIBUTION WIDTH 15.6 % (10.0-14.5); WHITE BLOOD COUNT 8.2 10^3/uL (4.3-11.0)
[2019-08-14 07:01] LABS: ALBUMIN 4.1 GM/DL (3.2-4.5); BILIRUBIN,TOTAL 0.5 MG/DL (0.1-1.0); CALCIUM 9.6 MG/DL (8.5-10.1); CREATININE SERUM 4.01 MG/DL (0.60-1.30); POTASSIUM 3.2 MMOL/L (3.6-5.0); TOTAL PROTEIN 7.7 GM/DL (6.4-8.2)
--- NOTE | 2019-08-14 07:35 | Diagnostic Imaging Report ---
INDICATION: Acute onset chronic renal failure, heart failure. TECHNIQUE: Single view chest 4:20 AM. CORRELATION STUDY: 08/13/2019 FINDINGS: Left-sided AICD remains in place. Rather pronounced severity cardiac enlargement with poststernotomy changes. Vasculature remains congested but overall is less severe. Multiple sternal wires are interrupted and fragmented. Lung lozano mildly prominent interstitial markings. No definitive infiltrates. IMPRESSION: 1. Cardiac enlargement with the presence of pulmonary vascular congestion compatible with a congestive heart failure. However, appears slightly improved from one day earlier. Dictated by: Dictated on workstation # [id number]
[2019-08-14 08:00] VITALS: BP 120/74
[2019-08-14] MEDS ORDERED: ENOXAPARIN 30 MG/0.3 ML (LOVENOX) SYR SC SCH (09:00)
[2019-08-14] MEDS ORDERED: CLOPIDOGREL 75 MG (PLAVIX) TABLET PO SCH ×2 (09:00→11:00)
[2019-08-14] MEDS ORDERED: PANTOPRAZOLE 40 MG (PROTONIX) TAB PO SCH (09:00)
[2019-08-14] MEDS ORDERED: ASPIRIN 81 MG CHEW (CHILDREN'S ASA) PO SCH (09:00)
--- NOTE | 2019-08-14 10:27 | History & Physical-Hospitalist ---
History of Present Illness HPI/Chief Complaint This is a 64-year-old white male who is brought to the emergency room with mental status changes and dizziness. The patient says he feels much much better this morning. He is found to have an elevated BU of 114 with a creatinine up in the high fours. The patient has made approximately 800 mL of urine overnight and has received 400 and IV fluids. Chest x-ray shows venous redistribution c/w CHF . BNP is elevated but chronically so. The patient says he's back to his old self and would like to go home today after he sees Dr. Harman. He denies having any chest pain or any cardiac symptoms at this juncture. Source: patient Exam Limitations: no limitations Date Seen 08/14/19 Time Seen by a Provider: 09:50 Attending Physician Jenna Rodriguez Pankaj K MD Referring Physician Date of Admission Aug 13, 2019 at 21:47 Home Medications & Allergies Home Medications Reviewed patient Home Medication Reconciliation performed by pharmacy medication reconciliations aviation technician aircraft and/or nursing. Patients Allergies have been reviewed. Allergies Allergies Coded Allergies oxycodone (Verified Allergy, Unknown, 03/28/19) Past Bbyaxjh-Pfzsnb-Pitgkt Hx Past Med/Social Hx: Reviewed Nursing Past Med/Soc Hx, Reviewed and Corrections made Patient Social History Marrital Status: Alcohol Use: Denies Use Recreational Drug Use: No Smoking Status: Current Everyday Smoker Type Used: Cigarettes 2nd Hand Smoke Exposure: No Recent Foreign Travel: No Contact w/other who traveled: No Recent Hopitalizations: No Recent Infectious Disease Expo: No Immunizations Up To Date Date of Pneumonia Vaccine: Apr 25, 2016 Date of Influenza Vaccine: Apr 03, 2019 Seasonal Allergies Seasonal Allergies: No Past Medical History Surgeries: Appendectomy, CABG, Defibrillator Cardiac: Coronary Artery Disease, Heart Attack, High Cholesterol, Hypertension Neurological: Neuropathy Genitourinary: Renal Failure Gastrointestinal: Gastroesophageal Reflux Musculoskeletal: Arthritis, Chronic Back Pain Endocrine: Diabetes, Insulin dep Psychosocial: Depression History of Blood Disorders: No Adverse Reaction to Blood Lindsey: No Family History Reviewed Nursing Family Hx Cardiovascular disease 19 FATHER Diabetes mellitus 19 FATHER FH: CHF (congestive heart failure) 19 FATHER Myocardial infarction G8 BROTHER Review of Systems Constitutional: dizziness Respiratory: short of breath Cardiovascular: no symptoms reported Genitourinary: no symptoms reported Musculoskeletal: no symptoms reported Skin: no symptoms reported Physical Exam Physical Exam Vital Signs Vital Signs - First Documented Capillary Refill : Less Than 3 Seconds Height, Weight, BMI Height: '" Weight: lbs. oz. kg; 28.66 BMI Method: General Appearance: No Apparent Distress, WD/WN HEENT: Normal ENT Inspection Neck: Non Tender Respiratory: Crackles, Decreased Breath Sounds Cardiovascular: Regular Rate, Rhythm Extremity: Pedal Edema Neurologic/Psychiatric: Alert, Oriented x3, No Motor/Sensory Deficits, Normal Mood/Affect Skin: Normal Color, Warm/Dry Results Results/Procedures Labs Laboratory Tests 08/13/19 20:30 08/14/19 05:40 Patient resulted labs reviewed. Imaging: Reviewed Imaging Report Assessment/Plan Admission Diagnosis Dizziness resolved Brief mental status changes of uncertain etiology most likely secondary to dizziness resolved Acute on chronic renal failure stage 4-5 [id number] close to needing dialysis Coronary artery disease with a history of CO Dr. Morrissey in consultation Congestive heart failure with ejection fraction of 20-25 percent secondary to systolic dysfunction and heart disease Weakness most likely secondary to over diuresis-medications currently being held with great improvement in the patient's symptoms. Discussed with Dr. Seals who is on-call for Dr. Haro. Patient's baseline BUN is the 60s with a creatinine of 3. I reviewed his medications with her and she requested that we restart the Toresemide 25 mg in the morning, stop the spironolactone, have him take the metolazone on Saturday and Saturday and given potassium as needed. We will most likely discharge tomorrow with labs obtained to be sent to Dr. Haro on Saturday Admission Status: Observation Clinical Quality Measures DVT/VTE Risk/Contraindication: Risk Factor Score Per Nursin RFS Level Per Nursing on Admit: 4+=Very High Copy Copies To 1: SUJIT ALVAREZ MD, KATHLEEN M MD Aug 14, 2019 10:27
[2019-08-14] MEDS ORDERED: KCL 10 MEQ TAB (MICRO K) PO NR (10:30)
[2019-08-14] MEDS ORDERED: AMIODARONE 200 MG (CORDARONE) TAB PO SCH (11:00)
[2019-08-14] MEDS ORDERED: ASPIRIN E.C. 81 MG (ECOTRIN) TAB PO SCH (11:00)
[2019-08-14] MEDS ORDERED: DULoxetine 20 MG (CYMBALTA) CAP PO SCH (11:00)
[2019-08-14] MEDS ORDERED: amLODIPine 5 MG (NORVASC) TAB PO SCH (11:00)
[2019-08-14] MEDS ORDERED: HYDROcodone/APAP 10 MG/325 MG (LORTAB) TAB PO PRN (11:00)
[2019-08-14] MEDS ORDERED: CARVEDILOL 6.25 MG (COREG) TAB PO SCH (11:00)
[2019-08-14] MEDS ORDERED: inSUlin ASPART (NovoLOG) 1 UNIT/0.01 ML (CHARGE PER UNIT) SC SCH (11:00)
[2019-08-14] MEDS ORDERED: PANT40TA3 PO (11:50)
[2019-08-14] MEDS ORDERED: POTA20TA15 PO (11:50)
[2019-08-14] MEDS ORDERED: CITA20TA9 PO (11:50)
[2019-08-14] MEDS ORDERED: TORS20TA3 PO (11:50)
[2019-08-14] MEDS ORDERED: INSU100I14 SQ (11:58)
[2019-08-14 12:00] VITALS: BP 104/67
--- NOTE | 2019-08-14 12:00 | NUR ---
SPOKE WITH PT (HE HAD A MED LIST SCANNED IN) WENT THRU THE EXT MED HISTORY AND CALLED [facility]INGO THOMPSON TO COMPLETE THE MED REC. THE MED LIST IN THE PT FILE IS OUTDATED EVEN THOUGH IT HAS A DATE OF 05-18-2019. THE FOLLOWING MED WERE ON THAT LIST BUT ARE NOT INCLUDED IN THE MED EITHER BC THE PT IS NO LONGER TAKING OR A PAST DUE FILL DATE:SYMBICORT,DULOXETINE, GABAPENTIN, ALBUTEROL HFA, MONTELUKAST, ZOLPIDEM. OTC MEDS: ASPIRIN VIT D VIT C MTV
--- NOTE | 2019-08-14 12:08 | Consultation-Cardiology ---
HPI-Cardiology Cardiology Consultation: Date of Consultation 08/14/19 Time Seen by a Provider: 11:45 Date of Admission 08/13/19 Attending Physician Jenna Rodriguez DO Admitting Physician Kamaljit Blanco MD Consulting Physician GAB VALLECILLO MD, MA, FACP, FACC, FSCAI, CCDS HPI: Chief Complaint: CC: Dizziness HPI 64 yo man admitted to Dr Rodriguez (Dr Worley [facility]) with dizziness yesterday. Denies cp or palp or syncope or near-syncope. Has chronic, mod, exertional shortness of breath that remains unchanged. Has chronic, mild, intermittent leg swelling, unchanged. Feel well today, no symptoms at all, wishes to go home Review of Systems-Cardiology Review of Systems Constitutional: As described under HPI; No malaise, No tiredness Ears/Nose/Throat: No nasal drainage, No recent hearing loss Respiratory: As described under HPI Cardiovascular: As described under HPI Gastrointestinal: No constipation, No diarrhea, No nausea, No vomiting Genitourinary: No dysuria, No hematuria, No urine frequency changes Musculoskeletal: back pain (chronic) Skin: No rash, No ulcerations Psychiatric/Neurological: No seizure, No focal weakness, No syncope Hematologic: No bleeding abnormalities [id number] Hx Patient Social History Marrital Status: Alcohol Use: Denies Use Recreational Drug Use: No Smoking Status: Current Everyday Smoker Type Used: Cigarettes 2nd Hand Smoke Exposure: No Recent Foreign Travel: No Recent Infectious Disease Expo: No Hospitalization with Isolation: Denies Immunizations Up To Date Date of Pneumonia Vaccine: Apr 25, 2016 Date of Influenza Vaccine: Apr 03, 2019 Past Medical History PMH As described under Assessment. Family Medical History Family History: Cardiovascular disease 19 FATHER Diabetes mellitus 19 FATHER FH: CHF (congestive heart failure) 19 FATHER Myocardial infarction G8 BROTHER Allergies and Home Medications Allergies Coded Allergies: oxycodone (Verified Allergy, Unknown, 03/28/19) Home Medications Amiodarone HCl 200 Mg Tablet, 200 MG PO DAILY, (Reported) Amlodipine Besylate 5 Mg Tablet, 5 MG PO DAILY, (Reported) Ascorbic Acid 500 Mg Capsule.er, 500 MG PO DAILY, (Reported) Aspirin 81 Mg Tablet.dr, 81 MG PO DAILY, (Reported) Atorvastatin Calcium 40 Mg Tablet, 40 MG PO HS, (Reported) Carvedilol 6.25 Mg Tablet, 6.25 MG PO Q12H, (Reported) Citalopram Hydrobromide 20 Mg Tablet, 20 MG PO DAILY, (Reported) Clopidogrel Bisulfate 75 Mg Tablet, 75 MG PO DAILY, (Reported) Cyclobenzaprine HCl 10 Mg Tablet, 10 MG PO HS, (Reported) Dexlansoprazole 30 Mg Cap.dr.bp, 30 MG PO DAILY, (Reported) Doxazosin Mesylate 2 Mg Tablet, 2 MG PO DAILY, (Reported) Hydrocodone/Acetaminophen 1 Each Tablet, 1 TAB PO Q6H PRN for PAIN-MODERATE (4- 6), (Reported) Insulin Aspart 300 Units/3 Ml Solution, 15 UNITS SQ AC PRN for HYPERGLYCEMIA, (Reported) Insulin Degludec 200 Unit/1 Ml Insuln.pen, 40 UNIT SQ DAILY, (Reported) Metolazone 5 Mg Tablet, 1 TAB PO MO,WE,FR PRN for SWELLING, (Reported) Multivits,Ca,Min/Iron/FA/Lycop 1 Each Tablet, 1 EACH PO DAILY, (Reported) Pantoprazole Sodium 40 Mg Tablet.dr, 40 MG PO DAILY, (Reported) Potassium Chloride 20 Meq Tab.er.prt, 20 MEQ PO DAILY, (Reported) Spironolactone 25 Mg Tablet, 25 MG PO DAILY, (Reported) Tamsulosin HCl 0.4 Mg Cap, 0.4 MG PO DAILY, (Reported) Torsemide 20 Mg Tablet, 20 MG PO DAILY, (Reported) Patient Home Medication List Home Medication List Reviewed: Yes Physical Exam-Cardiology Physical Exam Vital Signs/I&O 08/14/19 08/14/19 08/14/19 08/14/19 04:00 04:05 07:00 08:00 Temp 36.2 36.0 Pulse 71 61 62 Resp 18 20 B/P (MAP) 125/60 (81) 120/74 (89) Pulse Ox 88 92 95 O2 Delivery Room Air Nasal Cannula Room Air O2 Flow Rate 2.00 08/14/19 00:00 Intake Total 400 ml Balance 400 ml Capillary Refill : Less Than 3 Seconds Constitutional: AAO x 3, well-developed, well-nourished HEENT: EOMI, hearing is well preserved; No xanthelasmas are seen Neck: carotid pulses are 2 + bilaterally, with good upstrokes Cardiovascular: regular rate-rhythm, S1 and S2, systolic murmur (soft TEJA at card base) Gastrointestinal: No tender; soft; No guarding, No rebound; audible bowel sounds Extremities: No clubbing, No cyanosis, No significant edema Neurologic/Psychiatric: oriented x 3, other (moves all limbs equally) Skin: No rash on exposed areas, No ulcerations on exposed areas Data Review Labs Laboratory Tests 08/13/19 20:30: White Blood Count 9.4, Red Blood Count 5.19, Hemoglobin 13.7, Hematocrit 41, Mean Corpuscular Volume 79L, Mean Corpuscular Hemoglobin 26, Mean Corpuscular Hemoglobin Concent 33, Red Cell Distribution Width 15.4H, Platelet Count 127L, Mean Platelet Volume 13.1H, Neutrophils (%) (Auto) 71, Lymphocytes (%) (Auto) 18, Monocytes (%) (Auto) 7, Eosinophils (%) (Auto) 3, Basophils (%) (Auto) 0, Neutrophils # (Auto) 6.7, Lymphocytes # (Auto) 1.7, Monocytes # (Auto) 0.7, Eosinophils # (Auto) 0.3, Basophils # (Auto) 0.0, Sodium Level 134L, Potassium Level 3.5L, Chloride Level 92L, Carbon Dioxide Level 29, Anion Gap 13, Blood Urea Nitrogen 113*H, Creatinine 4.43H, Estimat Glomerular Filtration Rate 14, BUN/Creatinine Ratio 26, Glucose Level 112H, Calcium Level 9.5, Corrected Calcium 9.3, Magnesium Level 1.9, Total Bilirubin 0.4, Aspartate Amino Transf (AST/SGOT) 23, Alanine Aminotransferase (ALT/SGPT) 17, Alkaline Phosphatase 83, Troponin I 0.087H, C-Reactive Protein High Sensitivity 0.41, B-Type Natriuretic Peptide 636.9H, Total Protein 7.8, Albumin 4.3 08/13/19 21:55: Urine Color YELLOW, Urine Clarity CLEAR, Urine pH 5.5, Urine Specific [place] 1.010L, Urine Protein NEGATIVE, Urine Glucose (UA) NEGATIVE, Urine Ketones NEGATIVE, Urine Nitrite NEGATIVE, Urine Bilirubin NEGATIVE, Urine Urobilinogen 0.2, Urine Leukocyte Esterase NEGATIVE, Urine RBC (Auto) NEGATIVE, Urine RBC NONE, Urine WBC NONE, Urine Squamous Epithelial Cells 0-2, Urine Crystals NONE, Urine Bacteria NEGATIVE, Urine Casts PRESENT, Urine Hyaline Casts 5-10H, Urine M ucus NEGATIVE, Urine Culture Indicated NO 08/14/19 04:27: Glucometer 289H 08/14/19 05:40: White Blood Count 8.2, Red Blood Count 5.16, Hemoglobin 13.6, Hematocrit 41, Mean Corpuscular Volume 80, Mean Corpuscular Hemoglobin 26, Mean Corpuscular Hemoglobin Concent 33, Red Cell Distribution Width 15.6H, Platelet Count 123L, Mean Platelet Volume 13.6H, Neutrophils (%) (Auto) 71, Lymphocytes (%) (Auto) 20, Monocytes (%) (Auto) 7, Eosinophils (%) (Auto) 3, Basophils (%) (Auto) 0, Neutrophils # (Auto) 5.8, Lymphocytes # (Auto) 1.6, Monocytes # (Auto) 0.6, Eosinophils # (Auto) 0.2, Basophils # (Auto) 0.0, Sodium Level 135, Potassium Level 3.2L, Chloride Level 95L, Carbon Dioxide Level 24, Anion Gap 16H, Blood Urea Nitrogen 110*H, Creatinine 4.01#H, Estimat Glomerular Filtration Rate 15, BUN/Creatinine Ratio 27, Glucose Level 203H, Calcium Level 9.6, Corrected Calcium 9.5, Total Bilirubin 0.5, Aspartate Amino Transf (AST/SGOT) 23, Alanine Aminotransferase (ALT/SGPT) 18, Alkaline Phosphatase 78, Troponin I 0.075H, B- Type Natriuretic Peptide 641.7H, Total Protein 7.7, Albumin 4.1 08/14/19 10:11: Glucometer 110 Microbiology 08/13/19 Influenza Types A,B Antigen (MARIELY) - Final, Complete Laboratory Tests 08/13/19 20:30 08/14/19 05:40 A/P-Cardiology Assessment/Admission Diagnosis Chronic systolic CHF due to ischemic cardiomyopathy Chronic, moderate, shortness of breath, likely multifactorial (see above and below) H/o COPD CKD stage 4 - previously following with Nephrology services in [place], [place], now following with Dr Haro at [place], [place] ([facility]) Chronic, minimal troponin elevation due to chronic systolic heart failure and chronic renal failure (no evidence of acute coronary syndrome) Intolerant to ISMAEL-inhib and ARB due to renal failure exacerbation Echocardiogram of 04-26-19 showed concentric hypertrophy. LVEF 20-25%. Akinesis of the anteroseptal myocardium. Grade 2 diastolic dysfunction. LA severely dilated. Mod MR and TR. RVSP approx 46 mmHg CAD. Pt reports the following. MO leading to CABG in 1994. 5 cor stents between 1994 and 2003. MPI of May 2019 is indicative of apical and basal lateral myocardial infarction without significant ischemia. LVEF 27%. Apical and basal lateral akinesis and global hypokinesis Ischemic cardiomyopathy leading to ICD in or around 2007 in [place], [place], revised in [address] Ley at [facility], last checked Jan/Feb (per pt report) in [place], [place]. The card immanuel nettleseunice states he Has [place] Sci E 143 Sr [id number] (Dec 2012) with [employer]ant leads 0185 (Dec 2012) and 4135 (2007). Device inter rogation of Jun 2019 shows device functioning normally DM II, insulin-requiring Chronic tobacco use (currently smoking 5 cigs/day) H/o hypertension AAA scan of May 2019 showed no evidence of AAA Discussion and Recomendations * He suffers from multiple comorbidities * Does not clinically appear to be in decompensated CHF * No clinical evidence of acute cor syndrome * Somewhat low K that is being managed by Dr Worley * Med Svce managing patient's renal failure * Ok to d/c from cardiac standpoint. We advised cardiac f/u next week Clinical Quality Measures DVT/VTE Risk/Contraindication: Risk Factor Score Per Nursin RFS Level Per Nursing on Admit: 4+=Very High GAB VALLECILLO MD FACP FAC CCDS Aug 14, 2019 12:08
--- NOTE | 2019-08-14 14:25 | Discharge Summary ---
Discharge [facility] Reconcile Patient Problems Problems Reviewed?: Yes Patient Instructions Patient Instructions Please stop your spironolactone. Start the Toresamide tomorrow morning. Only take the Metolozone on Saturday , Saturday, and Saturday. Go to the [facility] for your blood work on Saturday tp be sent to Dr. Baig your vice president media relations. Goal/Follow Up Appt: See Dr. Baig and your [facility] doctor next week Return to The Hospital For: Worsening symptoms Activity & Diet Discharge Diet: Low Sodium Diet, Other Diet (Renal renal) Activity as Tolerated: Yes Orders-Post D/C & Referrals Chem 12 and CBC on Saturday -blood work to be sent to Copy Copies To 1: [facility]/JEREMY CORTES MD Aug 14, 2019 14:19
--- NOTE | 2019-08-14 14:49 | Discharge Summary ---
Diagnosis/Chief Complaint Date of Admission Aug 13, 2019 at 21:47 Date of Discharge Aug 14, 2019 Discharge Date: Aug 14, 2019 Discharge Time: 15:00 Admission Diagnosis Dizziness resolved Brief mental status changes of uncertain etiology most likely secondary to diz ziness resolved Acute on chronic renal failure stage 4-5 [id number] close to needing dialysis Coronary artery disease with a history of [place] Dr. Morrissey in consultation Congestive heart failure with ejection fraction of 20-25 percent secondary to systolic dysfunction and heart disease Weakness most likely secondary to over diuresis-medications currently being held with great improvement in the patient's symptoms. Discussed with Dr. Seals who is on-call for Dr. Haro. Patient's baseline being in is in the 60s with a creatinine of 3. I reviewed his medications with her and she re-request that we restart the Torosemide 25 mg in the morning, stop The spironolactone, have him take the metolazone on Saturday and Saturday and given potassium as needed. We will most likely discharge tomorrow with labs obtained to be sent to Dr. Haro on Saturday Primary Care Sujit Alvarez MD Discharge Diagnosis Dizziness Acute renal failure superimposed on chronic renal insufficiency stage IV- progressing to possible dialysis Dehydration Hypokalemia Congestive heart failure slightly decompensated ischemic with an ejection fraction of 20-25 Coronary artery disease Discharge Summary Procedures/Consulations Dr. Kimani Seals channel worker Discharge Physical Exam Allergies: Coded Allergies: oxycodone (Verified Allergy, Unknown, 03/28/19) Vitals & I&Os Vital Signs Date Time Temp Pulse Resp B/P (MAP) Pulse Ox O2 Delivery O2 Flow Rate FiO2 08/14/19 13:00 74 08/14/19 12:00 36.1 20 104/67 (79) 94 Room Air 08/14/19 04:05 2.00 General Appearance: No Apparent Distress, WD/WN HEENT: Normal ENT Inspection Respiratory: Crackles, Rales Cardiovascular: Regular Rate, Rhythm, No Gallop, Systolic Murmur Gastrointestinal: Normal Bowel Sounds, Soft Extremity: No Calf Tenderness Skin: Normal Color, Warm/Dry Neurologic/Psychiatric: Alert, Oriented x3, No Motor/Sensory Deficits, Normal Mood/Affect, 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 This was not continued. Patient's diuretics were held. I called Dr. Seals, channel worker in [place] and discussed the case in depth. She recommended rechecking blood work on Saturday to continue new to hold the diuretics till tomorrow and then resume metolazone on Saturday, Saturday and Fridays. Spironolactone is to be held. Dr. Morrissey saw the patient consultation and felt like his congestive heart failure was compensated adequately for discharge. Patient is instructed to follow-up closely with Dr. Perry, and Dr. Baig, . The patient was stable for discharge and anxious to go home Labs (last 24 hrs) Laboratory Tests 08/13/19 20:30: White Blood Count 9.4, Red Blood Count 5.19, Hemoglobin 13.7, Hematocrit 41, Mean Corpuscular Volume 79L, Mean Corpuscular Hemoglobin 26, Mean Corpuscular Hemoglobin Concent 33, Red Cell Distribution Width 15.4H, Platelet Count 127L, Mean Platelet Volume 13.1H, Neutrophils (%) (Auto) 71, Lymphocytes (%) (Auto) 18, Monocytes (%) (Auto) 7, Eosinophils (%) (Auto) 3, Basophils (%) (Auto) 0, Neutrophils # (Auto) 6.7, Lymphocytes # (Auto) 1.7, Monocytes # (Auto) 0.7, Eosinophils # (Auto) 0.3, Basophils # (Auto) 0.0, Sodium Level 134L, Potassium Level 3.5L, Chloride Level 92L, Carbon Dioxide Level 29, Anion Gap 13, Blood Urea Nitrogen 113*H, Creatinine 4.43H, Estimat Glomerular Filtration Rate 14, BUN/Creatinine Ratio 26, Glucose Level 112H, Calcium Level 9.5, Corrected Calcium 9.3, Magnesium Level 1.9, Total Bilirubin 0.4, Aspartate Amino Transf (AST/SGOT) 23, Alanine Aminotransferase (ALT/SGPT) 17, Alkaline Phosphatase 83, Troponin I 0.087H, C-Reactive Protein High Sensitivity 0.41, B-Type Natriuretic Peptide 636.9H, Total Protein 7.8, Albumin 4.3 08/13/19 21:55: Urine Color YELLOW, Urine Clarity CLEAR, Urine pH 5.5, Urine Specific [place] 1.010L, Urine Protein NEGATIVE, Urine Glucose (UA) NEGATIVE, Urine Ketones NEGATIVE, Urine Nitrite NEGATIVE, Urine Bilirubin NEGATIVE, Urine Urobilinogen 0.2, Urine Leukocyte Esterase NEGATIVE, Urine RBC (Auto) NEGATIVE, Urine RBC NONE, Urine WBC NONE, Urine Squamous Epithelial Cells 0-2, Urine Crystals NONE, Urine Bacteria NEGATIVE, Urine Casts PRESENT, Urine Hyaline Casts 5-10H, Urine Mucus NEGATIVE, Urine Culture Indicated NO 08/14/19 04:27: Glucometer 289H 08/14/19 05:40: White Blood Count 8.2, Red Blood Count 5.16, Hemoglobin 13.6, Hematocrit 41, Mean Corpuscular Volume 80, Mean Corpuscular Hemoglobin 26, Mean Corpuscular Hemoglobin Concent 33, Red Cell Distribution Width 15.6H, Platelet Count 123L, Mean Platelet Volume 13.6H, Neutrophils (%) (Auto) 71, Lymphocytes (%) (Auto) 20, Monocytes (%) (Auto) 7, Eosinophils (%) (Auto) 3, Basophils (%) (Auto) 0, Neutrophils # (Auto) 5.8, Lymphocytes # (Auto) 1.6, Monocytes # (Auto) 0.6, Eosinophils # (Auto) 0.2, Basophils # (Auto) 0.0, Sodium Level 135, Potassium Level 3.2L, Chloride Level 95L, Carbon Dioxide Level 24, Anion Gap 16H, Blood Urea Nitrogen 110*H, Creatinine 4.01#H, Estimat Glomerular Filtration Rate 15, BUN/Creatinine Ratio 27, Glucose Level 203H, Calcium Level 9.6, Corrected Calcium 9.5, Total Bilirubin 0.5, Aspartate Amino Transf (AST/SGOT) 23, Alanine Aminotransferase (ALT/SGPT) 18, Alkaline Phosphatase 78, Troponin I 0.075H, B- Type Natriuretic Peptide 641.7H, Total Protein 7.7, Albumin 4.1 08/14/19 10:11: Glucometer 110 Microbiology 08/13/19 Influenza Types A,B Antigen (MARIELY) - Final, Complete Patient resulted labs reviewed. Pending Labs Laboratory Tests 08/14/19 10:11: Glucometer 110 Imaging: Reviewed Imaging Report Discussion & Recommendations Discharge Planning: <30 minutes discharge planning Discharge Home Medications: Active Scripts Active Reported Novolog Flexpen (Insulin Aspart) 300 Units/3 Ml Solution 15 Units SQ AC PRN Torsemide 20 Mg Tablet 20 Mg PO DAILY Potassium Chloride 20 Meq Tab.er.prt 20 Meq PO DAILY Pantoprazole Sodium 40 Mg Tablet.dr 40 Mg PO DAILY Citalopram HBr (Citalopram Hydrobromide) 20 Mg Tablet 20 Mg PO DAILY Amiodarone HCl 200 Mg Tablet 200 Mg PO DAILY Tresiba Flextouch U-200 (Insulin Degludec) 200 Unit/1 Ml Insuln.pen 40 Unit SQ DAILY Vitamin C (Ascorbic Acid) 500 Mg Capsule.er 500 Mg PO DAILY Centrum Men's Tablet (Multivits,Ca,Min/Iron/FA/Lycop) 1 Each Tablet 1 Each PO DAILY Aspirin EC (Aspirin) 81 Mg Tablet.dr 81 Mg PO DAILY Clopidogrel (Clopidogrel Bisulfate) 75 Mg Tablet 75 Mg PO DAILY Amlodipine Besylate 5 Mg Tablet 5 Mg PO DAILY Atorvastatin Calcium 40 Mg Tablet 40 Mg PO HS Flomax (Tamsulosin HCl) 0.4 Mg Cap 0.4 Mg PO DAILY Cyclobenzaprine HCl 10 Mg Tablet 10 Mg PO HS Dexilant (Dexlansoprazole) 30 Mg Cap..bp 30 Mg PO DAILY Metolazone 5 Mg Tablet 1 Tab PO MO,WE,FR PRN Hydrocodon-Acetaminophn 10-325 (Hydrocodone/Acetaminophen) 1 Each Tablet 1 Tab PO Q6H PRN Carvedilol 6.25 Mg Tablet 6.25 Mg PO Q12H Doxazosin Mesylate 2 Mg Tablet 2 Mg PO DAILY Instructions to patient/family Please see electronic discharge instructions given to patient. Clinical Quality Measures DVT/VTE Risk/Contraindication: Risk Factor Score Per Nursin RFS Level Per Nursing on Admit: 4+=Very High Copy Copies To 1: SUJIT ALVAREZ MD, KATHLEEN M MD Aug 14, 2019 14:49
[2019-08-14] MEDS ORDERED: TAMSULOSIN 0.4 MG (FLOMAX) CAP PO SCH (18:00)
[2019-08-14] MEDS ORDERED: ZOLPIDEM 5 MG (AMBIEN) TAB PO SCH (21:00)
[2019-08-15] MEDS ORDERED: PANTOPRAZOLE 20 MG TABLET (PROTONIX) PO SCH (09:00)
[2019-08-15] MEDS ORDERED: CYCLOBENZAPRINE 10 MG (FLEXERIL) TAB PO SCH (09:00)
== END 2019-08-14 15:38 | disposition home or self-care (01) ==
LOC: EDUNIT# 20:29 → ER 20:30 → 4TH 21:47
PROVIDERS: ADMIT Family Medicine; ATTEND Family Medicine
DX: I13.0 Hypertensive heart and chronic kidney disease with heart failure and stage 1 through stage 4 chronic kidney disease, or unspecified chronic kidney disease (principal); I50.32 Chronic diastolic (congestive) heart failure; I25.5 Ischemic cardiomyopathy; R41.82 Altered mental status, unspecified; I25.10 Atherosclerotic heart disease of native coronary artery without angina pectoris; J44.9 Chronic obstructive pulmonary disease, unspecified; I25.2 Old myocardial infarction; E78.00 Pure hypercholesterolemia, unspecified; K21.9 Gastro-esophageal reflux disease without esophagitis; N17.9 Acute kidney failure, unspecified; N18.4 Chronic kidney disease, stage 4 (severe); M19.90 Unspecified osteoarthritis, unspecified site; G89.29 Other chronic pain; M34.9 Systemic sclerosis, unspecified; E11.40 Type 2 diabetes mellitus with diabetic neuropathy, unspecified; E11.22 Type 2 diabetes mellitus with diabetic chronic kidney disease; F32.9 Major depressive disorder, single episode, unspecified; F17.210 Nicotine dependence, cigarettes, uncomplicated; Z88.5 Allergy status to narcotic agent; Z79.4 Long term (current) use of insulin; Z79.82 Long term (current) use of aspirin; Z79.02 Long term (current) use of antithrombotics/antiplatelets; Z79.899 Other long term (current) drug therapy; Z90.89 Acquired absence of other organs; Z95.1 Presence of aortocoronary bypass graft
CPT/HCPCS: 36415; 71045; 80053; 81000; 82962; 83735; 83880; 84484; 85025; 86141; 87804; 93005; 93041; 96360; G0378

== ENCOUNTER → 2019-08-24 | Outpatient (CLI) | payer MEDICARE, MEDICAID ==
[~2019-08-24] MED LIST changes: +CITA20TA9 PO; +PANT40TA3 PO; +POTA20TA15 PO
[2019-08-24 14:42] LABS: HEMATOCRIT 38 % (40-54); HEMOGLOBIN 12.7 G/DL (13.3-17.7); MEAN CORPUSCULAR HEMOGLOBIN 27 PG (25-34); MEAN CORPUSCULAR HGB CONC 33 G/DL (32-36); MEAN CORPUSCULAR VOLUME 81 FL (80-99); MEAN PLATELET VOLUME 11.7 FL (7.4-10.4); PLATELET COUNT 139 10^3/uL (130-400); RED CELL DISTRIBUTION WIDTH 15.6 % (10.0-14.5); WHITE BLOOD COUNT 6.6 10^3/uL (4.3-11.0)
[2019-08-24 14:43] LABS: BASOPHILS % (AUTO) 1 % (0-10); EOSINOPHILS # (AUTO) 0.2 10^3/uL (0.0-0.3); EOSINOPHILS % (AUTO) 3 % (0-10); LYMPHOCYTES # (AUTO) 1.3 X 10^3 (1.0-4.0); LYMPHOCYTES % (AUTO) 20 % (12-44); MONOCYTES # (AUTO) 0.6 X 10^3 (0.0-1.0); MONOCYTES % (AUTO) 8 % (0-12); NEUTROPHILS # (AUTO) 4.5 X 10^3 (1.8-7.8); NEUTROPHILS % (AUTO) 68 % (42-75)
[2019-08-25 08:08] LABS: PHOSPHORUS 5.7 MG/DL (2.3-4.7)
[2019-08-25 08:14] LABS: URINE CREATININE FOR RATIO 111 MG/DL (30-125); URINE PROTEIN FOR RATIO ONLY < 6 MG/DL (6-12)
[2019-08-25 08:25] LABS: URIC ACID 13.4 MG/DL (2.6-7.2)
[2019-08-25 08:30] LABS: POTASSIUM 3.4 MMOL/L (3.6-5.0)
[2019-08-25 08:31] LABS: ALBUMIN 4.2 GM/DL (3.2-4.5); CALCIUM 9.3 MG/DL (8.5-10.1); CREATININE SERUM 4.59 MG/DL (0.60-1.30)
== END ==
LOC: LAB FS 13:48
PROVIDERS: ATTEND Internal Medicine Nephrology
DX: N18.4 Chronic kidney disease, stage 4 (severe) (principal); I50.20 Unspecified systolic (congestive) heart failure; N40.1 Benign prostatic hyperplasia with lower urinary tract symptoms; R60.0 Localized edema
CPT/HCPCS: 36415; 80069; 82306; 82570; 83970; 84156; 84550; 85025

== ENCOUNTER → 2019-09-09 | Outpatient (CLI) | payer MEDICARE, MEDICAID ==
[2019-09-09 14:23] LABS: ALBUMIN 3.5 GM/DL (3.2-4.5); CALCIUM 8.5 MG/DL (8.5-10.1); CREATININE SERUM 2.31 MG/DL (0.60-1.30); POTASSIUM 4.1 MMOL/L (3.6-5.0)
== END ==
LOC: LAB FS 13:24
PROVIDERS: ATTEND Internal Medicine Nephrology
DX: N18.4 Chronic kidney disease, stage 4 (severe) (principal); I50.20 Unspecified systolic (congestive) heart failure; R60.0 Localized edema
CPT/HCPCS: 36415; 80069

== ENCOUNTER 2019-09-17 12:17 | Outpatient (RCR) | payer OTHER, MEDICAID ==
[2019-09-17 12:58] LABS: ALBUMIN 3.6 GM/DL (3.2-4.5); CALCIUM 8.8 MG/DL (8.5-10.1); CREATININE SERUM 2.33 MG/DL (0.60-1.30); POTASSIUM 4.2 MMOL/L (3.6-5.0)
[2019-09-17 14:59] LABS: PHOSPHORUS 3.2 MG/DL (2.3-4.7)
[2019-09-24 15:47] LABS: PHOSPHORUS 4.5 MG/DL (2.3-4.7)
[2019-09-24 16:02] LABS: ALBUMIN 3.7 GM/DL (3.2-4.5); CALCIUM 8.8 MG/DL (8.5-10.1); CREATININE SERUM 2.78 MG/DL (0.60-1.30); POTASSIUM 3.5 MMOL/L (3.6-5.0)
[2019-10-05] MEDS ORDERED: HYDR-83 PO (22:57)
[2019-10-05] MEDS ORDERED: NALO0.4D3 IJ (22:57)
== END 2019-12-16 | disposition home or self-care (01) ==
LOC: LAB FS 12:17
PROVIDERS: ATTEND Internal Medicine Nephrology
DX: N18.4 Chronic kidney disease, stage 4 (severe) (principal); I50.20 Unspecified systolic (congestive) heart failure; R60.0 Localized edema
CPT/HCPCS: 36415; 80069

== ENCOUNTER 2019-10-05 22:39 | Emergency (ER) | payer OTHER, MEDICAID ==
[~2019-10-05] VITALS: Ht 175.2 cm; Wt 95.4 kg
[2019-10-05] MEDS ORDERED: RX-HYDROCODONE/APAP 5/325 MG #4 TAB PK PO PRN (22:45)
[2019-10-05] MEDS ORDERED: methylPREDNISolone 40 MG/ML (DEPO MEDROL) VIAL IM ONE (22:45)
[2019-10-05] MEDS ORDERED: fentaNYL INJECTION 100 MCG/2 ML AMP IM ONE (22:45)
--- NOTE | 2019-10-05 22:52 | ED Lower Extremity ---
General Stated Complaint: GOUT PAIN Source: patient Exam Limitations: no limitations History of Present Illness Date Seen by Provider: Oct 05, 2019 Time Seen by Provider: 22:40 Initial Comments Patient presents ER with pain started this evening in his right great toe radiating up into his foot. It is red, swollen has no history of trauma. He says it feels like it's broken. He said this is consistent pain 9 out of 10 with when he had gout flare in the past. In the past. Shot of steroids helped. He's used Tylenol tonight. He is on warfarin for atrial fibrillation. His stated allergy to oxycodone was that it was too potent and made him feel like he overdosed. He said they had to give him Narcan. He is a patient of Dr. Blanco's. Allergies and Home Medications Allergies Coded Allergies: oxycodone (Verified Allergy, Unknown, 03/28/19) Home Medications Amiodarone HCl 200 Mg Tablet, 200 MG PO DAILY, (Reported) Amlodipine Besylate 5 Mg Tablet, 5 MG PO DAILY, (Reported) Ascorbic Acid 500 Mg Capsule.er, 500 MG PO DAILY, (Reported) Aspirin 81 Mg Tablet.dr, 81 MG PO DAILY, (Reported) Atorvastatin Calcium 40 Mg Tablet, 40 MG PO HS, (Reported) Carvedilol 6.25 Mg Tablet, 6.25 MG PO Q12H, (Reported) Citalopram Hydrobromide 20 Mg Tablet, 20 MG PO DAILY, (Reported) Clopidogrel Bisulfate 75 Mg Tablet, 75 MG PO DAILY, (Reported) Cyclobenzaprine HCl 10 Mg Tablet, 10 MG PO HS, (Reported) Dexlansoprazole 30 Mg Cap.bp, 30 MG PO DAILY, (Reported) Doxazosin Mesylate 2 Mg Tablet, 2 MG PO DAILY, (Reported) Hydrocodone Bit/Acetaminophen 1 Each Tablet, 1 TAB PO Q6H PRN for PAIN-MODERATE (4-6), (Reported) Insulin Aspart 300 Units/3 Ml Solution, 15 UNITS SQ AC PRN for HYPERGLYCEMIA, (Reported) Insulin Degludec 200 Unit/1 Ml Insuln.pen, 40 UNIT SQ DAILY, (Reported) Metolazone 5 Mg Tablet, 1 TAB PO MO,WE,FR PRN for SWELLING, (Reported) Multivits,Ca,Min/Iron/FA/Lycop 1 Each Tablet, 1 EACH PO DAILY, (Reported) Pantoprazole Sodium 40 Mg Tablet.dr, 40 MG PO DAILY, (Reported) Potassium Chloride 20 Meq Tab.er.prt, 20 MEQ PO DAILY, (Reported) Tamsulosin HCl 0.4 Mg Cap, 0.4 MG PO DAILY, (Reported) Torsemide 20 Mg Tablet, 20 MG PO DAILY, (Reported) Patient Home Medication List Home Medication List Reviewed: Yes Review of Systems Constitutional: No chills, No malaise EENTM: No hearing loss, No ear pain Respiratory: No cough, No short of breath Cardiovascular: No chest pain, No edema Gastrointestinal: No abdominal pain, No nausea Genitourinary: No discharge, No dysuria Musculoskeletal: see HPI, gout, joint pain All Other Systems Reviewed Negative Unless Noted: Yes Past [id number] Hx Patient Social History Alcohol Use: Denies Use Recreational Drug Use: No Smoking Status: Current Everyday Smoker Type Used: Cigarettes 2nd Hand Smoke Exposure: No Recent Foreign Travel: No Contact w/Someone Who Travel: No Recent Hopitalizations: No Immunizations Up To Date Date of Pneumonia Vaccine: Apr 25, 2016 Date of Influenza Vaccine: Apr 03, 2019 Seasonal Allergies Seasonal Allergies: No Past Medical History Surgeries: Yes (Spinal Stimulator) Appendectomy, CABG, Defibrillator Respiratory: Yes COPD Cardiac: Yes (CHF) Coronary Artery Disease, Heart Attack, High Cholesterol, Hypertension Neurological: Yes Neuropathy Genitourinary: Yes Renal Failure Gastrointestinal: Yes Gastroesophageal Reflux Musculoskeletal: Yes Arthritis, Chronic Back Pain Endocrine: Yes Diabetes, Insulin dep HEENT: No Cancer: No Psychosocial: Yes Depression Blood Disorders: No Adverse Reaction/Blood Tranf: No Family Medical History Cardiovascular disease 19 FATHER Diabetes mellitus 19 FATHER FH: CHF (congestive heart failure) 19 FATHER Myocardial infarction G8 BROTHER Physical Exam Vital Signs Capillary Refill : Height, Weight, BMI Height: '" Weight: lbs. oz. kg; 28.66 BMI Method: General Appearance: WD/WN, mild distress HEENT: PERRL/EOMI, pharynx normal Cardiovascular: normal peripheral pulses, regular rate, rhythm Respiratory: no respiratory distress, no accessory muscle use Knees: bilateral knee non-tender, bilateral knee normal inspection, bilateral knee normal range of motion, bilateral knee no evidence of injury Ankles: bilateral ankle non-tender, bilateral ankle normal inspection, bilateral ankle normal range of motion, bilateral ankle no evidence of injury Feet: left foot non-tender, left foot normal inspection, left foot normal range of motion; bilateral foot no evidence of injury; right foot pain, right foot soft tissue tenderness, right foot swelling, right foot other (erythema especially around the proximal interphalangeal joint of the great toe first digit right foot) Neurologic/Tendon: normal sensation, normal motor functions, normal tendon functions, responds to pain, no evidence tendon injury Neurologic/Psychiatric: no motor/sensory deficits, alert, normal mood/affect, oriented x 3 Skin: normal color, warm/dry Progress/Results/Core Measures Results/Orders My Orders Orders - COOPER PEREZ Methylprednisolone Acetate Inj (Depo-Med (10/05/19 22:45) Fentanyl Injection (Sublimaze Injection (10/05/19 22:45) Rx-Hydrocodone/Apap 5-325 Mg (Rx-Vicodin (10/05/19 22:45) Progress Progress Note : Time: 22:51 Progress Note Shot of Depo-Medrol and hydrocodone take-home pack. He is not a good candidate for NSAIDs because of his use of Coumadin and history of poor kidney function. He's had creatinine ranging between 2 and 4. Colchicine is not a good option for now either. In the past he said steroids took care of it. We counseled him that steroids would also make his diabetes get out of control and he is aware of this. Departure Impression Primary Impression: Gout flare Qualified Codes: M10.9 - Gout, unspecified Disposition: 01 HOME, SELF-CARE Condition: Stable Departure-Patient Inst. Decision time for Depature: 22:53 Referrals: SUJIT BLANCO MD (PCP/Family) Primary Care Physician Patient Instructions: Lifestyle Changes to Manage Gout, Gout (DC) Add. Discharge Instructions: The steroid shot should last for about 5-7 days. During that time her blood sugars will be high. You can use hydrocodone one tablet every 4-6 hours as needed to control your pain. Hydrocodone will cause drowsiness as well as constipation. I recommend MiraLAX once or twice a day to keep your bowels moving. If you get to much hydrocodone on board and become unresponsive or you are not breathing/thinking appropriately then check a blood sugar. If the blood sugar is normal then give the shot of Narcan/naloxone in the thigh and call 911. Follow-up with primary care as necessary. Scripts Naloxone HCl (Naloxone HCl) 0.4 Mg/1 Ml Syringe 0.4 MG IJ ONCE PRN for opiate overdose, #1 SYRINGE 1 Refill Prov: COOPER PEREZ 10/05/19 Hydrocodone/Acetaminophen (Hydrocodone-Acetamin 5-325 mg) 1 Each Tablet 1 EACH PO Q4H PRN for PAIN-BREAKTHROUGH, #20 TAB 0 Refills Prov: COOPER PEREZ 10/05/19 COOPER PEREZ Oct 05, 2019 22:52
[2019-10-05] MEDS ORDERED: NALO0.4D3 IJ (22:57)
[2019-10-05] MEDS ORDERED: HYDR-83 PO (22:57)
[2019-10-05 23:00] VITALS: BP 108/70
--- OUTSIDE RECORDS SUMMARY | 2019-10-06 15:22 | XMS REPORT | Continuity of Care Document ---
Demographics Preferred Language Unknown Marital Status Unknown Anabaptist Affiliation Unknown Race Unknown Ethnic Group Unknown Author Organization Unknown Address Unknown Phone Unavailable Allergies Active Description Code Type Severity Reaction Onset Reported/Identified Relationship to Patient Clinical Status Yes oxycodone [id number] Drug Allergy Unknown N/A 03/28/2019 Medications There is no data. Problems Date Dx Coded Attending Type Code Diagnosis Diagnosed By 03/28/2019 CHANDAN LOPEZ MD, Ot E11. 40 TYPE 2 DIABETES MELLITUS WITH DIABETIC N 03/28/2019 CHANDAN LOPEZ MD, Ot E78. 5 HYPERLIPIDEMIA, UNSPECIFIED 03/28/2019 CHANDAN LOPEZ MD, Ot F17.210 NICOTINE DEPENDENCE, CIGARETTES, UNCOMPL 03/28/2019 CHANDAN LOPEZ MD, Ot F32. 9 MAJOR DEPRESSIVE DISORDER, SINGLE EPISOD 03/28/2019 CHANDAN LOPEZ MD, Ot I11. 0 HYPERTENSIVE HEART DISEASE WITH HEART FA 03/28/2019 CHANDAN LOPEZ MD, Ot I25. 10 ATHSCL HEART DISEASE OF [place] CORONARY 03/28/2019 CHANDAN LOPEZ MD, Ot I25. 2 OLD MYOCARDIAL INFARCTION 03/28/2019 CHANDAN LOPEZ MD, Ot I48. 0 PAROXYSMAL ATRIAL FIBRILLATION 03/28/2019 CHANDAN LOPEZ MD, Ot I50. 9 HEART FAILURE, UNSPECIFIED 03/28/2019 CHANDAN LOPEZ MD, Ot J44. 9 CHRONIC OBSTRUCTIVE PULMONARY DISEASE, U 03/28/2019 CHANDAN LOPEZ MD, Ot K21. 9 GASTRO-ESOPHAGEAL REFLUX DISEASE WITHOUT 03/28/2019 CHANDAN LOPEZ MD, Ot M79.672 PAIN IN LEFT FOOT 03/28/2019 CHANDAN LOPEZ MD, Ot Z88. 5 ALLERGY STATUS TO NARCOTIC AGENT STATUS 03/28/2019 CHANDAN LOPEZ MD, Ot Z90. 49 ACQUIRED ABSENCE OF OTHER SPECIFIED PART 03/28/2019 CHANDAN LOPEZ MD, Ot Z95. 1 PRESENCE OF AORTOCORONARY BYPASS GRAFT 03/28/2019 CHANDAN LOPEZ MD, Ot Z99. 81 DEPENDENCE ON SUPPLEMENTAL OXYGEN 04/01/2019 CHANDAN LOPEZ MD, Ot E11. 40 TYPE 2 DIABETES MELLITUS WITH DIABETIC N 04/01/2019 CHANDAN LOPEZ MD, Ot E78. 5 HYPERLIPIDEMIA, UNSPECIFIED 04/01/2019 CHANDAN LOPEZ MD, Ot F17.210 NICOTINE DEPENDENCE, CIGARETTES, UNCOMPL 04/01/2019 CHANDAN LOPEZ MD, Ot F32. 9 MAJOR DEPRESSIVE DISORDER, SINGLE EPISOD 04/01/2019 CHANDAN LOPEZ MD, Ot I11. 0 HYPERTENSIVE HEART DISEASE WITH HEART FA 04/01/2019 CHANDAN LOPEZ MD, Ot I25. 10 ATHSCL HEART DISEASE OF [place] CORONARY 04/01/2019 CHANDAN LOPEZ MD, Ot I25. 2 OLD MYOCARDIAL INFARCTION 04/01/2019 CHANDAN LOPEZ MD, Ot I48. 0 PAROXYSMAL ATRIAL FIBRILLATION 04/01/2019 CHANDAN LOPEZ MD, Ot I50. 9 HEART FAILURE, UNSPECIFIED 04/01/2019 CHANDAN LOPEZ MD, Ot J44. 9 CHRONIC OBSTRUCTIVE PULMONARY DISEASE, U 04/01/2019 CHANDAN LOPEZ MD, Ot K21. 9 GASTRO-ESOPHAGEAL REFLUX DISEASE WITHOUT 04/01/2019 CHANDAN LOPEZ MD, Ot M79.672 PAIN IN LEFT FOOT 04/01/2019 CHANDAN LOPEZ MD, Ot Z88. 5 ALLERGY STATUS TO NARCOTIC AGENT STATUS 04/01/2019 CHANDAN LOPEZ MD, Ot Z90. 49 ACQUIRED ABSENCE OF OTHER SPECIFIED PART 04/01/2019 CHANDAN LOPEZ MD, Ot Z95. 1 PRESENCE OF AORTOCORONARY BYPASS GRAFT 04/01/2019 CHANDAN LOPEZ MD, Ot Z99. 81 DEPENDENCE ON SUPPLEMENTAL OXYGEN 04/27/2019 JOHNATHON BERKOWITZ MD Ot E11. 40 TYPE 2 DIABETES MELLITUS WITH DIABETIC N 04/27/2019 JOHNATHON BERKOWITZ MD Ot E11. 9 TYPE 2 DIABETES MELLITUS WITHOUT COMPLIC 04/27/2019 JOHNATHON BERKOWITZ MD, Ot E78. 00 PURE HYPERCHOLESTEROLEMIA, UNSPECIFIED 04/27/2019 JOHNATHON BERKOWITZ MD, Ot F17.210 NICOTINE DEPENDENCE, CIGARETTES, UNCOMPL 04/27/2019 JOHNATHON BERKOWITZ MD, Ot F32. 9 MAJOR DEPRESSIVE DISORDER, SINGLE EPISOD 04/27/2019 JOHNATHON BERKOWITZ MD, Ot I12. 9 HYPERTENSIVE CHRONIC KIDNEY DISEASE W ST 04/27/2019 JOHNATHON BERKOWITZ MD, Ot I25. 10 ATHSCL HEART DISEASE OF [place] CORONARY 04/27/2019 JOHNATHON BERKOWITZ MD, Ot I25. 2 OLD MYOCARDIAL INFARCTION 04/27/2019 JOHNATHON BERKOWITZ MD, Ot I25. 5 ISCHEMIC CARDIOMYOPATHY 04/27/2019 JOHNATHON BERKOWITZ MD, Ot I50. 23 ACUTE ON CHRONIC SYSTOLIC (CONGESTIVE) H 04/27/2019 JOHNATHON BERKOWITZ MD, Ot J44. 0 CHR OBSTRUCTIVE PULMON DISEASE WITH (ACU 04/27/2019 JOHNATHON BERKOWITZ MD, Ot J44. 1 CHRONIC OBSTRUCTIVE PULMONARY DISEASE W 04/27/2019 JOHNATHON BERKOWITZ MD, Ot K21. 9 GASTRO-ESOPHAGEAL REFLUX DISEASE WITHOUT 04/27/2019 JOHNATHON BERKOWITZ MD, Ot M19. 91 PRIMARY OSTEOARTHRITIS, UNSPECIFIED SITE 04/27/2019 JOHNATHON BERKOWITZ MD, Ot M54. 9 DORSALGIA, UNSPECIFIED 04/27/2019 JOHNATHON BERKOWITZ MD, Ot N18. 3 CHRONIC KIDNEY DISEASE, STAGE 3 (MODERAT 04/27/2019 JOHNATHON BERKOWITZ MD, Ot R79. 89 OTHER SPECIFIED ABNORMAL FINDINGS OF BLO 04/27/2019 JOHNATHON BERKOWITZ MD, Ot Z79. 4 HALF-WAY (CURRENT) USE OF INSULIN 04/27/2019 JOHNATHON BERKOWITZ MD, Ot Z91. 14 PATIENT'S OTHER NONCOMPLIANCE WITH MEDIC 04/27/2019 JOHNATHON BERKOWITZ MD, Ot Z95. 1 PRESENCE OF AORTOCORONARY BYPASS GRAFT 04/27/2019 JOHNATHON BERKOWITZ MD, Ot Z95. 5 PRESENCE OF CORONARY ANGIOPLASTY IMPLANT 04/27/2019 JOHNATHON BERKOWITZ MD, Ot Z99. 81 DEPENDENCE ON SUPPLEMENTAL OXYGEN 04/28/2019 JOHNATHON BERKOWITZ MD, Ot E11. 40 TYPE 2 DIABETES MELLITUS WITH DIABETIC N 04/28/2019 JOHNATHON BERKOWITZ MD, Ot E11. 9 TYPE 2 DIABETES MELLITUS WITHOUT COMPLIC 04/28/2019 JOHNATHON BERKOWITZ MD, Ot E78. 00 PURE HYPERCHOLESTEROLEMIA, UNSPECIFIED 04/28/2019 JOHNATHON BERKOWITZ MD, Ot F17.210 NICOTINE DEPENDENCE, CIGARETTES, UNCOMPL 04/28/2019 JOHNATHON BERKOWITZ MD, Ot F32. 9 MAJOR DEPRESSIVE DISORDER, SINGLE EPISOD 04/28/2019 JOHNATHON BERKOWITZ MD, Ot I12. 9 HYPERTENSIVE CHRONIC KIDNEY DISEASE W ST 04/28/2019 JOHNATHON BERKOWITZ MD, Ot I25. 10 ATHSCL HEART DISEASE OF [place] CORONARY 04/28/2019 JOHNATHON BERKOWITZ MD, Ot I25. 2 OLD MYOCARDIAL INFARCTION 04/28/2019 JOHNATHON BERKOWITZ MD, Ot I25. 5 ISCHEMIC CARDIOMYOPATHY 04/28/2019 JOHNATHON BERKOWITZ MD, Ot I50. 23 ACUTE ON CHRONIC SYSTOLIC (CONGESTIVE) H 04/28/2019 JOHNATHON BERKOWITZ MD, Ot J44. 0 CHR OBSTRUCTIVE PULMON DISEASE WITH (ACU 04/28/2019 JOHNATHON BERKOWITZ MD, Ot J44. 1 CHRONIC OBSTRUCTIVE PULMONARY DISEASE W 04/28/2019 JOHNATHON BERKOWITZ MD, Ot K21. 9 GASTRO-ESOPHAGEAL REFLUX DISEASE WITHOUT 04/28/2019 JOHNATHON BERKOWITZ MD, Ot M19. 91 PRIMARY OSTEOARTHRITIS, UNSPECIFIED SITE 04/28/2019 JOHNATHON BERKOWITZ MD, Ot M54. 9 DORSALGIA, UNSPECIFIED 04/28/2019 JOHNATHON BERKOWITZ MD, Ot N18. 3 CHRONIC KIDNEY DISEASE, STAGE 3 (MODERAT 04/28/2019 JOHNATHON BERKOWITZ MD, Ot R79. 89 OTHER SPECIFIED ABNORMAL FINDINGS OF BLO 04/28/2019 JOHNATHON BERKOWITZ MD, Ot Z79. 4 MANPOWER DEVELOPMENT SPECIALIST (CURRENT) USE OF INSULIN 04/28/2019 JOHNATHON BERKOWITZ MD, Ot Z91. 14 PATIENT'S OTHER NONCOMPLIANCE WITH MEDIC 04/28/2019 JOHNATHON BERKOWITZ MD, Ot Z95. 1 PRESENCE OF AORTOCORONARY BYPASS GRAFT 04/28/2019 JOHNATHON BERKOWITZ MD, Ot Z95. 5 PRESENCE OF CORONARY ANGIOPLASTY IMPLANT 04/28/2019 JOHNATHON BERKOWITZ MD, Ot Z99. 81 DEPENDENCE ON SUPPLEMENTAL OXYGEN 04/28/2019 JOHNATHON BERKOWITZ MD, Ot E11. 40 TYPE 2 DIABETES MELLITUS WITH DIABETIC N 04/28/2019 JOHNATHON BERKOWITZ MD, Ot E11. 9 TYPE 2 DIABETES MELLITUS WITHOUT COMPLIC 04/28/2019 JOHNATHON BERKOWITZ MD, Ot E78. 00 PURE HYPERCHOLESTEROLEMIA, UNSPECIFIED 04/28/2019 JOHNATHON BERKOWITZ MD, Ot F17.210 NICOTINE DEPENDENCE, CIGARETTES, UNCOMPL 04/28/2019 JOHNATHON BERKOWITZ MD, Ot F32. 9 MAJOR DEPRESSIVE DISORDER, SINGLE EPISOD 04/28/2019 JOHNATHON BERKOWITZ MD, Ot I12. 9 HYPERTENSIVE CHRONIC KIDNEY DISEASE W ST 04/28/2019 JOHNATHON BERKOWITZ MD, Ot I25. 10 ATHSCL HEART DISEASE OF [place] CORONARY 04/28/2019 JOHNATHON BERKOWITZ MD, Ot I25. 2 OLD MYOCARDIAL INFARCTION 04/28/2019 JOHNATHON BERKOWITZ MD, Ot I25. 5 ISCHEMIC CARDIOMYOPATHY 04/28/2019 JOHNATHON BERKOWITZ MD, Ot I50. 23 ACUTE ON CHRONIC SYSTOLIC (CONGESTIVE) H 04/28/2019 JOHNATHON BERKOWITZ MD, Ot J44. 0 CHR OBSTRUCTIVE PULMON DISEASE WITH (ACU 04/28/2019 JOHNATHON BERKOWITZ MD, Ot J44. 1 CHRONIC OBSTRUCTIVE PULMONARY DISEASE W 04/28/2019 JOHNATHON BERKOWITZ MD, Ot K21. 9 GASTRO-ESOPHAGEAL REFLUX DISEASE WITHOUT 04/28/2019 JOHNATHON BERKOWITZ MD, Ot M19. 91 PRIMARY OSTEOARTHRITIS, UNSPECIFIED SITE 04/28/2019 JOHNATHON BERKOWITZ MD, Ot M54. 9 DORSALGIA, UNSPECIFIED 04/28/2019 JOHNATHON BERKOWITZ MD, Ot N17. 9 ACUTE KIDNEY FAILURE, UNSPECIFIED 04/28/2019 JOHNATHON BERKOWITZ MD, Ot N18. 3 CHRONIC KIDNEY DISEASE, STAGE 3 (MODERAT 04/28/2019 JOHNATHON BERKOWITZ MD, Ot R79. 89 OTHER SPECIFIED ABNORMAL FINDINGS OF BLO 04/28/2019 JOHNATHON BERKOWITZ MD, Ot Z79. 4 MANPOWER DEVELOPMENT SPECIALIST (CURRENT) USE OF INSULIN 04/28/2019 JOHNATHON BERKOWITZ MD, Ot Z91. 14 PATIENT'S OTHER NONCOMPLIANCE WITH MEDIC 04/28/2019 JOHNATHON BERKOWITZ MD, Ot Z95. 1 PRESENCE OF AORTOCORONARY BYPASS GRAFT 04/28/2019 JOHNATHON BERKOWITZ MD, Ot Z95. 5 PRESENCE OF CORONARY ANGIOPLASTY IMPLANT 04/28/2019 JOHNATHON BERKOWITZ MD, Ot Z95.810 PRESENCE OF AUTOMATIC (IMPLANTABLE) CARD 04/28/2019 JOHNATHON BERKOWITZ MD Ot Z99. 81 DEPENDENCE ON SUPPLEMENTAL OXYGEN 04/28/2019 JOHNATHON BERKOWITZ MD, Ot E11. 40 TYPE 2 DIABETES MELLITUS WITH DIABETIC N 04/28/2019 JOHNATHON BERKOWITZ MD, Ot E11. 9 TYPE 2 DIABETES MELLITUS WITHOUT COMPLIC 04/28/2019 JOHNATHON BERKOWITZ MD, Ot E78. 00 PURE HYPERCHOLESTEROLEMIA, UNSPECIFIED 04/28/2019 JOHNATHON BERKOWITZ MD, Ot F17.210 NICOTINE DEPENDENCE, CIGARETTES, UNCOMPL 04/28/2019 JOHNATHON BERKOWITZ MD, Ot F32. 9 MAJOR DEPRESSIVE DISORDER, SINGLE EPISOD 04/28/2019 JOHNATHON BERKOWITZ MD, Ot I12. 9 HYPERTENSIVE CHRONIC KIDNEY DISEASE W ST 04/28/2019 JOHNATHON BERKOWITZ MD, Ot I25. 10 ATHSCL HEART DISEASE OF [place] CORONARY 04/28/2019 JOHNATHON BERKOWITZ MD, Ot I25. 2 OLD MYOCARDIAL INFARCTION 04/28/2019 JOHNATHON BERKOWITZ MD, Ot I25. 5 ISCHEMIC CARDIOMYOPATHY 04/28/2019 JOHNATHON BERKOWITZ MD, Ot I50. 23 ACUTE ON CHRONIC SYSTOLIC (CONGESTIVE) H 04/28/2019 JOHNATHON BERKOWITZ MD, Ot J44. 0 CHR OBSTRUCTIVE PULMON DISEASE WITH (ACU 04/28/2019 JOHNATHON BERKOWITZ MD, Ot J44. 1 CHRONIC OBSTRUCTIVE PULMONARY DISEASE W 04/28/2019 JOHNATHON BERKOWITZ MD, Ot K21. 9 GASTRO-ESOPHAGEAL REFLUX DISEASE WITHOUT 04/28/2019 JOHNATHON BERKOWITZ MD, Ot M19. 91 PRIMARY OSTEOARTHRITIS, UNSPECIFIED SITE 04/28/2019 JOHNATHON BERKOWITZ MD, Ot M54. 9 DORSALGIA, UNSPECIFIED 04/28/2019 JOHNATHON BERKOWITZ MD, Ot N18. 3 CHRONIC KIDNEY DISEASE, STAGE 3 (MODERAT 04/28/2019 JOHNATHON BERKOWITZ MD, Ot R79. 89 OTHER SPECIFIED ABNORMAL FINDINGS OF BLO 04/28/2019 JOHNATHON BERKOWITZ MD, Ot Z79. 4 HALF-WAY (CURRENT) USE OF INSULIN 04/28/2019 JOHNATHON BERKOWITZ MD, Ot Z91. 14 PATIENT'S OTHER NONCOMPLIANCE WITH MEDIC 04/28/2019 JOHNATHON BERKOWITZ MD, Ot Z95. 1 PRESENCE OF AORTOCORONARY BYPASS GRAFT 04/28/2019 JOHNATHON BERKOWITZ MD, Ot Z95. 5 PRESENCE OF CORONARY ANGIOPLASTY IMPLANT 04/28/2019 JOHNATHON BERKOWITZ MD, Ot Z99. 81 DEPENDENCE ON SUPPLEMENTAL OXYGEN 04/28/2019 JOHNATHON BERKOWITZ MD, Ot E11. 40 TYPE 2 DIABETES MELLITUS WITH DIABETIC N 04/28/2019 JOHNATHON BERKOWITZ MD, Ot E11. 9 TYPE 2 DIABETES MELLITUS WITHOUT COMPLIC 04/28/2019 JOHNATHON BERKOWITZ MD, Ot E78. 00 PURE HYPERCHOLESTEROLEMIA, UNSPECIFIED 04/28/2019 JOHNATHON BERKOWITZ MD, Ot F17.210 NICOTINE DEPENDENCE, CIGARETTES, UNCOMPL 04/28/2019 JOHNATHON BERKOWITZ MD, Ot F32. 9 MAJOR DEPRESSIVE DISORDER, SINGLE EPISOD 04/28/2019 JOHNATHON BERKOWITZ MD, Ot I12. 9 HYPERTENSIVE CHRONIC KIDNEY DISEASE W ST 04/28/2019 JOHNATHON BERKOWITZ MD, Ot I25. 10 ATHSCL HEART DISEASE OF [place] CORONARY 04/28/2019 JOHNATHON BERKOWITZ MD, Ot I25. 2 OLD MYOCARDIAL INFARCTION 04/28/2019 JOHNATHON BERKOWITZ MD, Ot I25. 5 ISCHEMIC CARDIOMYOPATHY 04/28/2019 JOHNATHON BERKOWITZ MD, Ot I50. 23 ACUTE ON CHRONIC SYSTOLIC (CONGESTIVE) H 04/28/2019 JOHNATHON BERKOWITZ MD, Ot J44. 0 CHR OBSTRUCTIVE PULMON DISEASE WITH (ACU 04/28/2019 JOHNATHON BERKOWITZ MD, Ot J44. 1 CHRONIC OBSTRUCTIVE PULMONARY DISEASE W 04/28/2019 JOHNATHON BERKOWITZ MD, Ot K21. 9 GASTRO-ESOPHAGEAL REFLUX DISEASE WITHOUT 04/28/2019 JOHNATHON BERKOWITZ MD, Ot M19. 91 PRIMARY OSTEOARTHRITIS, UNSPECIFIED SITE 04/28/2019 JOHNATHON BERKOWITZ MD, Ot M54. 9 DORSALGIA, UNSPECIFIED 04/28/2019 JOHNATHON BERKOWITZ MD, Ot N18. 3 CHRONIC KIDNEY DISEASE, STAGE 3 (MODERAT 04/28/2019 JOHNATHON BERKOWITZ MD, Ot R79. 89 OTHER SPECIFIED ABNORMAL FINDINGS OF BLO 04/28/2019 JOHNATHON BERKOWITZ MD, Ot Z79. 4 HALF-WAY (CURRENT) USE OF INSULIN 04/28/2019 JOHNATHON BERKOWITZ MD, Ot Z91. 14 PATIENT'S OTHER NONCOMPLIANCE WITH MEDIC 04/28/2019 JOHNATHON BERKOWITZ MD, Ot Z95. 1 PRESENCE OF AORTOCORONARY BYPASS GRAFT 04/28/2019 JOHNATHON BERKOWITZ MD, Ot Z95. 5 PRESENCE OF CORONARY ANGIOPLASTY IMPLANT 04/28/2019 JOHNATHON BERKOWITZ MD, Ot Z99. 81 DEPENDENCE ON SUPPLEMENTAL OXYGEN 04/30/2019 JOHNATHON BERKOWITZ MD, Ot E11. 40 TYPE 2 DIABETES MELLITUS WITH DIABETIC N 04/30/2019 JOHNATHON BERKOWITZ MD, Ot E11. 9 TYPE 2 DIABETES MELLITUS WITHOUT COMPLIC 04/30/2019 JOHNATHON BERKOWITZ MD, Ot E78. 00 PURE HYPERCHOLESTEROLEMIA, UNSPECIFIED 04/30/2019 JOHNATHON BERKOWITZ MD, Ot F17.210 NICOTINE DEPENDENCE, CIGARETTES, UNCOMPL 04/30/2019 JOHNATHON BERKOWITZ MD, Ot F32. 9 MAJOR DEPRESSIVE DISORDER, SINGLE EPISOD 04/30/2019 JOHNATHON BERKOWITZ MD, Ot I12. 9 HYPERTENSIVE CHRONIC KIDNEY DISEASE W ST 04/30/2019 JOHNATHON BERKOWITZ MD, Ot I25. 10 ATHSCL HEART DISEASE OF [place] CORONARY 04/30/2019 JOHNATHON BERKOWITZ MD, Ot I25. 2 OLD MYOCARDIAL INFARCTION 04/30/2019 JOHNATHON BERKOWITZ MD, Ot I25. 5 ISCHEMIC CARDIOMYOPATHY 04/30/2019 JOHNATHON BERKOWITZ MD, Ot I50. 23 ACUTE ON CHRONIC SYSTOLIC (CONGESTIVE) H 04/30/2019 JOHNATHON BERKOWITZ MD, Ot J44. 0 CHR OBSTRUCTIVE PULMON DISEASE WITH (ACU 04/30/2019 JOHNATHON BERKOWITZ MD, Ot J44. 1 CHRONIC OBSTRUCTIVE PULMONARY DISEASE W 04/30/2019 JOHNATHON BERKOWITZ MD, Ot K21. 9 GASTRO-ESOPHAGEAL REFLUX DISEASE WITHOUT 04/30/2019 JOHNATHON BERKOWITZ MD, Ot M19. 91 PRIMARY OSTEOARTHRITIS, UNSPECIFIED SITE 04/30/2019 JOHNATHON BERKOWITZ MD, Ot M54. 9 DORSALGIA, UNSPECIFIED 04/30/2019 JOHNATHON BERKOWITZ MD, Ot N18. 3 CHRONIC KIDNEY DISEASE, STAGE 3 (MODERAT 04/30/2019 JOHNATHON BERKOWITZ MD, Ot R79. 89 OTHER SPECIFIED ABNORMAL FINDINGS OF BLO 04/30/2019 JOHNATHON BERKOWITZ MD, Ot Z79. 4 MANPOWER DEVELOPMENT SPECIALIST (CURRENT) USE OF INSULIN 04/30/2019 JOHNATHON BERKOWITZ MD Ot Z91. 14 PATIENT'S OTHER NONCOMPLIANCE WITH MEDIC 04/30/2019 JOHNATHON BERKOWITZ MD Ot Z95. 1 PRESENCE OF AORTOCORONARY BYPASS GRAFT 04/30/2019 JOHNATHNO BERKOWITZ MD Ot Z95. 5 PRESENCE OF CORONARY ANGIOPLASTY IMPLANT 04/30/2019 JOHNATHON BERKOWITZ MD Ot Z99. 81 DEPENDENCE ON SUPPLEMENTAL OXYGEN 05/08/2019 CLIFTON ALMONTE RECLAMATION WORKER Ot I50.23 ACUTE ON CHRONIC SYSTOLIC (CONGESTIVE) H 05/25/2019 CLIFTON ALMONTE RECLAMATION WORKER Ot N18.9 CHRONIC KIDNEY DISEASE, UNSPECIFIED 05/28/2019 RUTH ANN CHAU FACC, ALI FACP CCDS Ot E78.5 HYPERLIPIDEMIA, UNSPECIFIED 05/28/2019 RUTH ANN CHAU FACC, ALI FACP CCDS Ot 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, W S 05/28/2019 RUTH ANN CHAU FACC, ALI FACP CCDS Ot I25.10 ATHSCL HEART DISEASE OF [place] CORONARY 05/28/2019 RUTH ANN CHAU FACC, ALI FACP CCDS Ot I25.2 OLD MYOCARDIAL INFARCTION 05/28/2019 RUTH ANN CHAU FACC, ALI FACP CCDS Ot I25.5 ISCHEMIC CARDIOMYOPATHY 05/28/2019 RUTH ANN CHAU FACC, ALI FACP CCDS Ot N18.4 CHRONIC KIDNEY DISEASE, STAGE 4 (SEVERE) 05/28/2019 RUTH ANN CHAU FACC, ALI FACP CCDS Ot Z72.0 TOBACCO USE 06/12/2019 RUTH ANN CHAU FACC, ALI FACP CCDS Ot E78.5 HYPERLIPIDEMIA, UNSPECIFIED 06/12/2019 RUTH ANN CHAU FACC, ALI FACP CCDS Ot 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, W S 06/12/2019 RUTH ANN CHAU FACC, ALI FACP CCDS Ot I25.10 ATHSCL HEART DISEASE OF [place] CORONARY 06/12/2019 RUTH ANN CHAU FACC, ALI FACP CCDS Ot I25.2 OLD MYOCARDIAL INFARCTION 06/12/2019 RUTH ANN CHAU FACC, ALI FACP CCDS Ot I25.5 ISCHEMIC CARDIOMYOPATHY 06/12/2019 RUTH ANN CHAU FACC, ALI FACP CCDS Ot N18.4 CHRONIC KIDNEY DISEASE, STAGE 4 (SEVERE) 06/12/2019 RUTH ANN CHAU FACC, ALI FACP CCDS Ot Z72.0 TOBACCO USE 06/25/2019 OLU, CAROL E SHIP RUNNER Ot G47.33 OBSTRUCTIVE SLEEP APNEA (ADULT) (PEDIATR 06/25/2019 OLU, CAROL E SHIP RUNNER Ot G47.36 SLEEP RELATED HYPOVENTILATION IN CONDITI 06/25/2019 OLU, CAROL E SHIP RUNNER Ot I51.7 CARDIOMEGALY 06/25/2019 OLU, CAROL E SHIP RUNNER Ot J44.9 CHRONIC OBSTRUCTIVE PULMONARY DISEASE, U 06/25/2019 OLU, CAROL E SHIP RUNNER Ot J90 PLEURAL EFFUSION, NOT ELSEWHERE CLASSIFI 06/25/2019 OLU, CAROL E SHIP RUNNER Ot Z72.0 TOBACCO USE 07/08/2019 CLIFTON ALMONTE Ot I50.23 ACUTE ON CHRONIC SYSTOLIC (CONGESTIVE) H 07/21/2019 OLU, CAROL E SHIP RUNNER Ot G47.33 OBSTRUCTIVE SLEEP APNEA (ADULT) (PEDIATR 07/21/2019 OLU, CAORL E SHIP RUNNER Ot G47.36 SLEEP RELATED HYPOVENTILATION IN CONDITI 07/21/2019 OLU, CAROL E SHIP RUNNER Ot I51.7 CARDIOMEGALY 07/21/2019 OLU, CAROL E SHIP RUNNER Ot J44.9 CHRONIC OBSTRUCTIVE PULMONARY DISEASE, U 07/21/2019 OLU, CAROL E SHIP RUNNER Ot J90 PLEURAL EFFUSION, NOT ELSEWHERE CLASSIFI 07/21/2019 OLU, CAROL E SHIP RUNNER Ot Z72.0 TOBACCO USE 07/23/2019 OLU, CAROL E SHIP RUNNER Ot G47.33 OBSTRUCTIVE SLEEP APNEA (ADULT) (PEDIATR 07/23/2019 OLU, CAROL E SHIP RUNNER Ot G47.36 SLEEP RELATED HYPOVENTILATION IN CONDITI 07/23/2019 OLU, CAROL E SHIP RUNNER Ot I51.7 CARDIOMEGALY 07/23/2019 OLU, CAROL E SHIP RUNNER Ot J44.9 CHRONIC OBSTRUCTIVE PULMONARY DISEASE, U 07/23/2019 OLU, CAROL E SHIP RUNNER Ot J90 PLEURAL EFFUSION, NOT ELSEWHERE CLASSIFI 07/23/2019 OLU, CAROL E SHIP RUNNER Ot Z72.0 TOBACCO USE 08/14/2019 CHARANJIT MEHTA DO Ot 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 08/14/2019 CHARANJIT MEHTA DO K Ot E11.40 TYPE 2 DIABETES MELLITUS WITH DIABETIC N 08/14/2019 MEHTA DO, CHARANJIT Bruce Ot E78.00 PURE HYPERCHOLESTEROLEMIA, UNSPECIFIED 08/14/2019 MEHTA DOCHARANJIT Ot F17.21 0 NICOTINE DEPENDENCE, CIGARETTES, UNCOMPL 08/14/2019 MEHTA DO, CHARANJIT Bruce Ot F32.9 MAJOR DEPRESSIVE DISORDER, SINGLE EPISOD 08/14/2019 MEHTA DO, CHARANJIT Bruce Ot G89.29 OTHER CHRONIC PAIN 08/14/2019 MEHTA DO, CHARANJIT Bruce Ot I13.0 HYP HRT CHR [place] DIS W HRT FAIL AND ST 08/14/2019 DO, CHARANJIT Bruce Ot I25.10 ATHSCL HEART DISEASE OF [place] CORONARY 08/14/2019 JANINE DOCHARANJIT Ot I25.2 OLD MYOCARDIAL INFARCTION 08/14/2019 MEHTA DO, CHARANJIT Bruce Ot I25.5 ISCHEMIC CARDIOMYOPATHY 08/14/2019 DO, CHARANJIT Bruce Ot I50.32 CHRONIC DIASTOLIC (CONGESTIVE) HEART KALA 08/14/2019 MEHTA DOCHARANJIT Ot J44.9 CHRONIC OBSTRUCTIVE PULMONARY DISEASE, U 08/14/2019 MEHTA DO, CHARANJIT Bruce Ot K21.9 GASTRO-ESOPHAGEAL REFLUX DISEASE WITHOUT 08/14/2019 DOCHARANJIT Ot M19.90 UNSPECIFIED OSTEOARTHRITIS, UNSPECIFIED 08/14/2019 MEHTA DOCHARANJIT Ot M34.9 SYSTEMIC SCLEROSIS, UNSPECIFIED 08/14/2019 DOCHARANJIT Ot N17.9 ACUTE KIDNEY FAILURE, UNSPECIFIED 08/14/2019 MEHTA DOCHARANJIT Ot N18.4 CHRONIC KIDNEY DISEASE, STAGE 4 (SEVERE) 08/14/2019 MEHTA DOCHARANJIT Ot R41.82 ALTERED MENTAL STATUS, UNSPECIFIED 08/14/2019 MEHTA DOCHARANJIT Ot Z79.02 MANPOWER DEVELOPMENT SPECIALIST (CURRENT) USE OF ANTITHROMBOTI 08/14/2019 JANINE DOCHARANJIT Ot Z79.4 MANPOWER DEVELOPMENT SPECIALIST (CURRENT) USE OF INSULIN 08/14/2019 JANINE DOCHARANJIT Ot Z79.82 HALF-WAY (CURRENT) USE OF ASPIRIN 08/14/2019 MEHTA DOCHARANJIT Ot Z79.89 9 OTHER MANPOWER DEVELOPMENT SPECIALIST (CURRENT) DRUG THERAPY 08/14/2019 JANINE DOCHARANJIT Ot Z88.5 ALLERGY STATUS TO NARCOTIC AGENT STATUS 08/14/2019 MEHTA DO, CHARANJIT Bruce Ot Z90.89 ACQUIRED ABSENCE OF OTHER ORGANS 08/14/2019 MEHTA DO, CHARANJIT Bruce Ot Z95.1 PRESENCE OF AORTOCORONARY BYPASS GRAFT 08/14/2019 MEHTA DO, CHARANJIT Bruce Ot 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 08/14/2019 DO, CHARANJIT Bruce Ot E11.40 TYPE 2 DIABETES MELLITUS WITH DIABETIC N 08/14/2019 DO, CHARANJIT Bruce Ot E78.00 PURE HYPERCHOLESTEROLEMIA, UNSPECIFIED 08/14/2019 MEHTA DO, CHARANJIT Bruce Ot F17.21 0 NICOTINE DEPENDENCE, CIGARETTES, UNCOMPL 08/14/2019 DO, CHARANJIT Bruce Ot F32.9 MAJOR DEPRESSIVE DISORDER, SINGLE EPISOD 08/14/2019 MEHTA DO, CHARANJIT Bruce Ot G89.29 OTHER CHRONIC PAIN 08/14/2019 MEHTA DO, CHARANJIT Bruce Ot I13.0 HYP HRT CHR [place] DIS W HRT FAIL AND ST 08/14/2019, CHARANJIT Bruce Ot I25.10 ATHSCL HEART DISEASE OF [place] CORONARY 08/14/2019 MEHTA DOCHARANJIT Ot I25.2 OLD MYOCARDIAL INFARCTION 08/14/2019 MEHTA DO, CHARANJIT Bruce Ot I25.5 ISCHEMIC CARDIOMYOPATHY 08/14/2019 DOCHARANJIT Ot I50.32 CHRONIC DIASTOLIC (CONGESTIVE) HEART [place] 08/14/2019 JANINE DOCHARANJIT Ot J44.9 CHRONIC OBSTRUCTIVE PULMONARY DISEASE, U 08/14/2019 MEHTA DOCHARANJIT Ot K21.9 GASTRO-ESOPHAGEAL REFLUX DISEASE WITHOUT 08/14/2019 MEHTA DOCHARANJIT Ot M19.90 UNSPECIFIED OSTEOARTHRITIS, UNSPECIFIED 08/14/2019 DOCHARANJIT Ot M34.9 SYSTEMIC SCLEROSIS, UNSPECIFIED 08/14/2019 DOCHARANJIT Ot N17.9 ACUTE KIDNEY FAILURE, UNSPECIFIED 08/14/2019 DOCHARANJIT Ot N18.4 CHRONIC KIDNEY DISEASE, STAGE 4 (SEVERE) 08/14/2019 JANINE DOCHARANJIT Ot R41.82 ALTERED MENTAL STATUS, UNSPECIFIED 08/14/2019 MEHTA DOCHARANJIT Ot Z79.02 MANPOWER 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 SPECIALIST (CURRENT) USE OF ANTITHROMBOTI 08/14/2019 JANINE DOCHARANJIT Ot Z79.4 HALF-WAY (CURRENT) USE OF INSULIN 08/14/2019 CHARANJIT MEHTA DO Ot Z79.82 MANPOWER DEVELOPMENT SPECIALIST (CURRENT) USE OF ASPIRIN 08/14/2019 CHARANJIT MEHTA DO Ot Z79.89 9 OTHER HALF-WAY (CURRENT) DRUG THERAPY 08/14/2019 CHARANJIT MEHTA DO Ot Z88.5 ALLERGY STATUS TO NARCOTIC AGENT STATUS 08/14/2019 CHARANJIT MEHTA DO Ot Z90.89 ACQUIRED ABSENCE OF OTHER ORGANS 08/14/2019 CHARANJIT MEHTA DO Ot Z95.1 PRESENCE OF AORTOCORONARY BYPASS GRAFT 08/24/2019 CLIFTON ALMONTE RECLAMATION WORKER Ot I50.23 ACUTE ON CHRONIC SYSTOLIC (CONGESTIVE) H 08/24/2019 CLIFTON ALMONTE RECLAMATION WORKER Ot N18.9 CHRONIC KIDNEY DISEASE, UNSPECIFIED 08/24/2019 RUTH ANN CHAU [facility], ALI FACP CCDS Ot E78.5 HYPERLIPIDEMIA, UNSPECIFIED 08/24/2019 RUTH ANN CHAU FACC, ALI FACP CCDS Ot 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, W S 08/24/2019 RUTH ANN CHAU [facility], ALI FACP CCDS Ot I25.10 ATHSCL HEART DISEASE OF [place] CORONARY 08/24/2019 RUTH ANN CHAU [facility], ALI FACP CCDS Ot I25.2 OLD MYOCARDIAL INFARCTION 08/24/2019 RUTH ANN CHAU [facility], ALI FACP CCDS Ot I25.5 ISCHEMIC CARDIOMYOPATHY 08/24/2019 RUTH ANN CHAU [facility], ALI FACP CCDS Ot N18.4 CHRONIC KIDNEY DISEASE, STAGE 4 (SEVERE) 08/24/2019 RUTH ANN CARVER, ALI FACP CCDS Ot Z72.0 TOBACCO USE 08/24/2019 CAROL RAINES APRN Ot G47.33 OBSTRUCTIVE SLEEP APNEA (ADULT) (PEDIATR 08/24/2019 CAROL RAINES APRN Ot G47.36 SLEEP RELATED HYPOVENTILATION IN CONDITI 08/24/2019 CAROL RAINES APRN Ot I51.7 CARDIOMEGALY 08/24/2019 CAROL RAINES APRN Ot J44.9 CHRONIC OBSTRUCTIVE PULMONARY DISEASE, U 08/24/2019 CAROL RAINES APRN Ot J90 PLEURAL EFFUSION, NOT ELSEWHERE CLASSIFI 08/24/2019 CAROL RAINES APRN Ot Z72.0 TOBACCO USE 08/24/2019 VALENCIA CHAU, ASHANTI Ot N18 .4 CHRONIC KIDNEY DISEASE, STAGE 4 (SEVERE) 09/08/2019 ASHANTI BIRMINGHAM MD Ot I50.20 UNSPECIFIED SYSTOLIC (CONGESTIVE) HEART 09/08/2019 ASHANTI BIRMINGHAM MD Ot N18 .4 CHRONIC KIDNEY DISEASE, STAGE 4 (SEVERE) 09/08/2019 ASHANTI BIRMINGHAM MD Ot N40 .1 BENIGN PROSTATIC HYPERPLASIA WITH LOWER 09/08/2019 ASHANTI BIRMINGHAM MD Ot R60 .0 LOCALIZED EDEMA 09/09/2019 CLIFTON ALMONTE RECLAMATION WORKER Ot I50.23 ACUTE ON CHRONIC SYSTOLIC (CONGESTIVE) H 09/09/2019 CLIFTON ALMONTE RECLAMATION WORKER Ot N18.9 CHRONIC KIDNEY DISEASE, UNSPECIFIED 09/09/2019 RUTH ANN CHAU FACC, ALI FACP CCDS Ot E78.5 HYPERLIPIDEMIA, UNSPECIFIED 09/09/2019 RUTH ANN CHAU FACC, ALI FACP CCDS Ot 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, W S 09/09/2019 RUTH ANN CHAU FACC, ALI FACP CCDS Ot I25.10 ATHSCL HEART DISEASE OF [place] CORONARY 09/09/2019 RUTH ANN CHAU FACC, ALI FACP CCDS Ot I25.2 OLD MYOCARDIAL INFARCTION 09/09/2019 RUTH ANN CHAU FACC, ALI FACP CCDS Ot I25.5 ISCHEMIC CARDIOMYOPATHY 09/09/2019 RUTH ANN CHAU FACC, ALI FACP CCDS Ot N18.4 CHRONIC KIDNEY DISEASE, STAGE 4 (SEVERE) 09/09/2019 RUTH ANN CHAU FACC, ALI FACP CCDS Ot Z72.0 TOBACCO USE 09/09/2019 CAROL RAINES APRN Ot G47.33 OBSTRUCTIVE SLEEP APNEA (ADULT) (PEDIATR 09/09/2019 CAROL RAINES SHIP RUNNER Ot G47.36 SLEEP RELATED HYPOVENTILATION IN CONDITI 09/09/2019 CAROL RAINES SHIP RUNNER Ot I51.7 CARDIOMEGALY 09/09/2019 CAROL RAINES SHIP RUNNER Ot J44.9 CHRONIC OBSTRUCTIVE PULMONARY DISEASE, U 09/09/2019 CAROL RAINES SHIP RUNNER Ot J90 PLEURAL EFFUSION, NOT ELSEWHERE CLASSIFI 09/09/2019 CAROL RAINES SHIP RUNNER Ot Z72.0 TOBACCO USE 09/09/2019 ASHANTI B[place]MING[place]AM MD Ot I50.20 UNSPECIFIED SYSTOLIC (CONGESTIVE) HEART 09/09/2019 ASHANTI BIRMINGHAM MD Ot N18 .4 CHRONIC KIDNEY DISEASE, STAGE 4 (SEVERE) 09/09/2019 ASHANTI BIRMINGHAM MD Ot N40 .1 BENIGN PROSTATIC HYPERPLASIA WITH LOWER 09/09/2019 ASHANTI BIRMINGHAM MD Ot R60 .0 LOCALIZED EDEMA 09/09/2019 CLIFTON ALMONTE RECLAMATION WORKER Ot I50.23 ACUTE ON CHRONIC SYSTOLIC (CONGESTIVE) H 09/09/2019 CLIFTON ALMONTE RECLAMATION WORKER Ot N18.9 CHRONIC KIDNEY DISEASE, UNSPECIFIED 09/09/2019 RUTH ANN CHAU FACC, ALI FACP CCDS Ot E78.5 HYPERLIPIDEMIA, UNSPECIFIED 09/09/2019 RUTH ANN CHAU FACC, ALI FACP CCDS Ot 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, W S 09/09/2019 RUTH ANN CHAU FACC, ALI FACP CCDS Ot I25.10 ATHSCL HEART DISEASE OF [place] CORONARY 09/09/2019 RUTH ANN CHAU FACC, ALI FACP CCDS Ot I25.2 OLD MYOCARDIAL INFARCTION 09/09/2019 RUTH ANN CHAU FACC, ALI FACP CCDS Ot I25.5 ISCHEMIC CARDIOMYOPATHY 09/09/2019 RUTH ANN CHAU FACC, ALI FACP CCDS Ot N18.4 CHRONIC KIDNEY DISEASE, STAGE 4 (SEVERE) 09/09/2019 RUTH ANN CHAU FACC, ALI FACP CCDS Ot Z72.0 TOBACCO USE 09/09/2019 CAROL RAINES APRN Ot G47.33 OBSTRUCTIVE SLEEP APNEA (ADULT) (PEDIATR 09/09/2019 CAROL RAINES SHIP RUNNER Ot G47.36 SLEEP RELATED HYPOVENTILATION IN CONDITI 09/09/2019 CAROL RAINES SHIP RUNNER Ot I51.7 CARDIOMEGALY 09/09/2019 CAROL RAINES SHIP RUNNER Ot J44.9 CHRONIC OBSTRUCTIVE PULMONARY DISEASE, U 09/09/2019 CAROL RAINES SHIP RUNNER Ot J90 PLEURAL EFFUSION, NOT ELSEWHERE CLASSIFI 09/09/2019 CAROL RAINES SHIP RUNNER Ot Z72.0 TOBACCO USE 09/09/2019 ASHANTI BIRMINGHAM MD Ot I50.20 UNSPECIFIED SYSTOLIC (CONGESTIVE) HEART 09/09/2019 ASHANTI BIRMINGHAM MD Ot N18 .4 CHRONIC KIDNEY DISEASE, STAGE 4 (SEVERE) 09/09/2019 ASHANTI BIRMINGHAM MD Ot N40 .1 BENIGN PROSTATIC HYPERPLASIA WITH LOWER 09/09/2019 ASHANTI BIRMINGHAM MD Ot R60 .0 LOCALIZED EDEMA 09/09/2019 CLIFTON ALMONTE RECLAMATION WORKER Ot I50.23 ACUTE ON CHRONIC SYSTOLIC (CONGESTIVE) H 09/09/2019 CLIFTON ALMONTE RECLAMATION WORKER Ot N18.9 CHRONIC KIDNEY DISEASE, UNSPECIFIED 09/09/2019 [facility] FACC, ALI FACP CCDS Ot E78.5 HYPERLIPIDEMIA, UNSPECIFIED 09/09/2019 RUTH ANN CHAU FACC, ALI FACP CCDS Ot 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, W S 09/09/2019 RUTH ANN CHAU FACC, ALI FACP CCDS Ot I25.10 ATHSCL HEART DISEASE OF [place] CORONARY 09/09/2019 RUTH ANN CHAU FACC, ALI FACP CCDS Ot I25.2 OLD MYOCARDIAL INFARCTION 09/09/2019 RUTH ANN CHAU FACC, ALI FACP CCDS Ot I25.5 ISCHEMIC CARDIOMYOPATHY 09/09/2019 RUTH ANN CHAU FACC, ALI FACP CCDS Ot N18.4 CHRONIC KIDNEY DISEASE, STAGE 4 (SEVERE) 09/09/2019 RUTH ANN CHAU FACC, ALI FACP CCDS Ot Z72.0 TOBACCO USE 09/09/2019 CAROL RAINES SHIP RUNNER Ot G47.33 OBSTRUCTIVE SLEEP APNEA (ADULT) (PEDIATR 09/09/2019 CAROL RAINES SHIP RUNNER Ot G47.36 SLEEP RELATED HYPOVENTILATION IN CONDITI 09/09/2019 CAROL RAINES SHIP RUNNER Ot I51.7 CARDIOMEGALY 09/09/2019 CAROL RAINES SHIP RUNNER Ot J44.9 CHRONIC OBSTRUCTIVE PULMONARY DISEASE, U 09/09/2019 CAROL RAINES SHIP RUNNER Ot J90 PLEURAL EFFUSION, NOT ELSEWHERE CLASSIFI 09/09/2019 CAROL RAINES SHIP RUNNER Ot Z72.0 TOBACCO USE 09/09/2019 ASHANTI BIRMINGHAM MD Ot I50.20 UNSPECIFIED SYSTOLIC (CONGESTIVE) HEART 09/09/2019 ASHANTI BIRMINGHAM MD Ot N18 .4 CHRONIC KIDNEY DISEASE, STAGE 4 (SEVERE) 09/09/2019 ASHANTI BIRMINGHAM MD Ot N40 .1 BENIGN PROSTATIC HYPERPLASIA WITH LOWER 09/09/2019 ASHANTI BIRMINGHAM MD Ot R60 .0 LOCALIZED EDEMA 09/09/2019 SUZY CLIFTON Chantelle RECLAMATION WORKER Ot I50.23 ACUTE ON CHRONIC SYSTOLIC (CONGESTIVE) H 09/09/2019 SUZYALEXISCLIFTON L RECLAMATION WORKER Ot N18.9 CHRONIC KIDNEY DISEASE, UNSPECIFIED 09/09/2019 RUTH ANN CHAU FAC, ALI FACP CCDS Ot E78.5 HYPERLIPIDEMIA, UNSPECIFIED 09/09/2019 RUTH ANN CHAU FACC, ALI FACP CCDS Ot 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36 SLEEP RELATED HYPOVENTILATION IN CONDITI 09/09/2019 CAROL RAINES SHIP RUNNER Ot I51.7 CARDIOMEGALY 09/09/2019 CAROL RAINES APRN Ot J44.9 CHRONIC OBSTRUCTIVE PULMONARY DISEASE, U 09/09/2019 CAROL RAINES SHIP RUNNER Ot J90 PLEURAL EFFUSION, NOT ELSEWHERE CLASSIFI 09/09/2019 CAROL RAINES APRN Ot Z72.0 TOBACCO USE 09/09/2019 ASHANTI BIRMINGHAM MD Ot I50.20 UNSPECIFIED SYSTOLIC (CONGESTIVE) HEART 09/09/2019 ASHANTI BIRMINGHAM MD Ot N18 .4 CHRONIC KIDNEY DISEASE, STAGE 4 (SEVERE) 09/09/2019 ASHANTI BIRMINGHAM MD Ot N40 .1 BENIGN PROSTATIC HYPERPLASIA WITH LOWER 09/09/2019 ASHANTI BIRMINGHAM MD Ot R60 .0 LOCALIZED EDEMA 09/12/2019 ASHANTI BIRMINGHAM MD Ot I50.20 UNSPECIFIED SYSTOLIC (CONGESTIVE) HEART 09/12/2019 ASHANTI BIRMINGHAM MD Ot N18 .4 CHRONIC KIDNEY DISEASE, STAGE 4 (SEVERE) 09/12/2019 ASHANTI BIRMINGHAM MD Ot R60 .0 LOCALIZED EDEMA 09/15/2019 CLIFTON ALMONTE RECLAMATION WORKER Ot I50.23 ACUTE ON CHRONIC SYSTOLIC (CONGESTIVE) H 09/15/2019 CLIFTON ALMONTE RECLAMATION WORKER Ot N18.9 CHRONIC KIDNEY DISEASE, UNSPECIFIED 09/15/2019 RUTH ANN CHAU FACC, ALI FACP CCDS Ot E78.5 HYPERLIPIDEMIA, UNSPECIFIED 09/15/2019 RUTH ANN CHAU FACC, ALI FACP CCDS Ot 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, W S 09/15/2019 RUTH ANN CHAU FACC, ALI FACP CCDS Ot I25.10 ATHSCL HEART DISEASE OF [place] CORONARY 09/15/2019 RUTH ANN CHAU FACC, ALI FACP CCDS Ot I25.2 OLD MYOCARDIAL INFARCTION 09/15/2019 RUTH ANN CHAU FACC, ALI FACP CCDS Ot I25.5 ISCHEMIC CARDIOMYOPATHY 09/15/2019 RUTH ANN CHAU FACC, ALI FACP CCDS Ot N18.4 CHRONIC KIDNEY DISEASE, STAGE 4 (SEVERE) 09/15/2019 RUTH ANN CHAU FACC, ALI FACP CCDS Ot Z72.0 TOBACCO USE 09/15/2019 CAROL RAINES APRN Ot G47.33 OBSTRUCTIVE SLEEP APNEA (ADULT) (PEDIATR 09/15/2019 CAROL RAINES APRN Ot G47.36 SLEEP RELATED HYPOVENTILATION IN CONDITI 09/15/2019 CAROL RAINES APRN Ot I51.7 CARDIOMEGALY 09/15/2019 CAROL RAINES APRN Ot J44.9 CHRONIC OBSTRUCTIVE PULMONARY DISEASE, U 09/15/2019 CAROL RAINES APRN Ot J90 PLEURAL EFFUSION, NOT ELSEWHERE CLASSIFI 09/15/2019 CAROL RAINES APRN Ot Z72.0 TOBACCO USE 09/15/2019 ASHANTI BIRMINGHAM MD Ot I50.20 UNSPECIFIED SYSTOLIC (CONGESTIVE) HEART 09/15/2019 ASHANTI BIRMINGHAM MD Ot N18 .4 CHRONIC KIDNEY DISEASE, STAGE 4 (SEVERE) 09/15/2019 ASHANTI BIRMINGHAM MD Ot N40 .1 BENIGN PROSTATIC HYPERPLASIA WITH LOWER 09/15/2019 ASHANTI BIRMINGHAM MD Ot R60 .0 LOCALIZED EDEMA 09/15/2019 ASHANTI BIRMINGHAM MD Ot I50.20 UNSPECIFIED SYSTOLIC (CONGESTIVE) HEART 09/15/2019 ASHANTI BIRMINGHAM MD Ot N18 .4 CHRONIC KIDNEY DISEASE, STAGE 4 (SEVERE) 09/15/2019 ASHANTI BIRMINGHAM MD Ot R60 .0 LOCALIZED EDEMA 09/15/2019 ASHANTI BIRMINGHAM MD Ot I50.20 UNSPECIFIED SYSTOLIC (CONGESTIVE) HEART 09/15/2019 ASHANTI BIRMINGHAM MD Ot N18 .4 CHRONIC KIDNEY DISEASE, STAGE 4 (SEVERE) 09/15/2019 ASHANTI BIRMINGHAM MD Ot R60 .0 LOCALIZED EDEMA 09/15/2019 CLIFTON ALMONTE RECLAMATION WORKER Ot I50.23 ACUTE ON CHRONIC SYSTOLIC (CONGESTIVE) H 09/15/2019 CLIFTON ALMONTE RECLAMATION WORKER Ot N18.9 CHRONIC KIDNEY DISEASE, UNSPECIFIED 09/15/2019 RUTH ANN CHAU FACAnita, ALI FACP CCDS Ot E78.5 HYPERLIPIDEMIA, UNSPECIFIED 09/15/2019 RUTH ANN CHAU FACC, ALI FACP CCDS Ot 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, W S 09/15/2019 RUTH ANN CHAU FACC, ALI FACP CCDS Ot I25.10 ATHSCL HEART DISEASE OF [place] CORONARY 09/15/2019 RUTH ANN CHAU FACC, ALI FACP CCDS Ot I25.2 OLD MYOCARDIAL INFARCTION 09/15/2019 RUTH ANN CHAU FACC, ALI FACP CCDS Ot I25.5 ISCHEMIC CARDIOMYOPATHY 09/15/2019 RUTH ANN CHAU FACC, ALI FACP CCDS Ot N18.4 CHRONIC KIDNEY DISEASE, STAGE 4 (SEVERE) 09/15/2019 RUTH ANN CHAU FACC, ALI FACP CCDS Ot Z72.0 TOBACCO USE 09/15/2019 CAROL RAINES APRN Ot G47.33 OBSTRUCTIVE SLEEP APNEA (ADULT) (PEDIATR 09/15/2019 CAROL RAINES APRN Ot G47.36 SLEEP RELATED HYPOVENTILATION IN CONDITI 09/15/2019 CAROL RAINES APRN Ot I51.7 CARDIOMEGALY 09/15/2019 CAROL RAINES APRN Ot J44.9 CHRONIC OBSTRUCTIVE PULMONARY DISEASE, U 09/15/2019 CAROL RAINES APRN Ot J90 PLEURAL EFFUSION, NOT ELSEWHERE CLASSIFI 09/15/2019 CAROL RAINES APRN Ot Z72.0 TOBACCO USE 09/15/2019 ASHANTI BIRMINGHAM MD Ot I50.20 UNSPECIFIED SYSTOLIC (CONGESTIVE) HEART 09/15/2019 ASHANTI BIRMINGHAM MD Ot N18 .4 CHRONIC KIDNEY DISEASE, STAGE 4 (SEVERE) 09/15/2019 ASHANTI BIRMINGHAM MD Ot N40 .1 BENIGN PROSTATIC HYPERPLASIA WITH LOWER 09/15/2019 ASHANTI BIRMINGHAM MD Ot R60 .0 LOCALIZED EDEMA 09/15/2019 ASHANTI BIRMINGHAM MD Ot I50.20 UNSPECIFIED SYSTOLIC (CONGESTIVE) HEART 09/15/2019 ASHANTI BIRMINGHAM MD Ot N18 .4 CHRONIC KIDNEY DISEASE, STAGE 4 (SEVERE) 09/15/2019 ASHANTI BIRMINGHAM MD Ot R60 .0 LOCALIZED EDEMA 09/17/2019 ASHANTI BIRMINGHAM MD Ot I50.20 UNSPECIFIED SYSTOLIC (CONGESTIVE) HEART 09/17/2019 ASHANTI BIRMINGHAM MD Ot N18 .4 CHRONIC KIDNEY DISEASE, STAGE 4 (SEVERE) 09/17/2019 ASHANTI BIRMINGHAM MD Ot R60 .0 LOCALIZED EDEMA 09/17/2019 CLIFTON ALMONTEP Ot I50.23 ACUTE ON CHRONIC SYSTOLIC (CONGESTIVE) H 09/17/2019 CLIFTON ALMONTE RECLAMATION WORKER Ot N18.9 CHRONIC KIDNEY DISEASE, UNSPECIFIED 09/17/2019 RUTH ANN CHAU FACC, GAB CARVERP CCDS Ot E78.5 HYPERLIPIDEMIA, UNSPECIFIED 09/17/2019 RUTH ANN CHAU FACC, ALI FACP CCDS Ot 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, W S 09/17/2019 RUTH ANN CHAU FACAnita, GAB FACP CCDS Ot I25.10 ATHSCL HEART DISEASE OF [place] CORONARY 09/17/2019 RUTH ANN CHAU [facility], ALI FACP CCDS Ot I25.2 OLD MYOCARDIAL INFARCTION 09/17/2019 RUTH ANN CHAU FACC, ALI FACP CCDS Ot I25.5 ISCHEMIC CARDIOMYOPATHY 09/17/2019 RUTH ANN CHAU FACC, ALI FACP CCDS Ot N18.4 CHRONIC KIDNEY DISEASE, STAGE 4 (SEVERE) 09/17/2019 RUTH ANN CHAU FACC, ALI FAC CCDS Ot Z72.0 TOBACCO USE 09/17/2019 CAROL RAINES SHIP RUNNER Ot G47.33 OBSTRUCTIVE SLEEP APNEA (ADULT) (PEDIATR 09/17/2019 CAROL RAINES SHIP RUNNER Ot G47.36 SLEEP RELATED HYPOVENTILATION IN CONDITI 09/17/2019 CAROL RAINES SHIP RUNNER Ot I51.7 CARDIOMEGALY 09/17/2019 CAROL RAINES APRN Ot J44.9 CHRONIC OBSTRUCTIVE PULMONARY DISEASE, U 09/17/2019 CAROL RAINES APRN Ot J90 PLEURAL EFFUSION, NOT ELSEWHERE CLASSIFI 09/17/2019 CAROL RAINES SHIP RUNNER Ot Z72.0 TOBACCO USE 09/17/2019 ASHANTI BIRMINGHAM MD Ot I50.20 UNSPECIFIED SYSTOLIC (CONGESTIVE) HEART 09/17/2019 ASHANTI BIRMINGHAM MD Ot N18 .4 CHRONIC KIDNEY DISEASE, STAGE 4 (SEVERE) 09/17/2019 ASHANTI BIRMINGHAM MD Ot N40 .1 BENIGN PROSTATIC HYPERPLASIA WITH LOWER 09/17/2019 ASHANTI BIRMINGHAM MD Ot R60 .0 LOCALIZED EDEMA 09/17/2019 ASHANTI BIRMINGHAM MD Ot I50.20 UNSPECIFIED SYSTOLIC (CONGESTIVE) HEART 09/17/2019 ASHANTI BIRMINGHAM MD Ot N18 .4 CHRONIC KIDNEY DISEASE, STAGE 4 (SEVERE) 09/17/2019 ASHANTI BIRMINGHAM MD Ot R60 .0 LOCALIZED EDEMA 09/24/2019 CLIFTON ALMONTEP Ot I50.23 ACUTE ON CHRONIC SYSTOLIC (CONGESTIVE) H 09/24/2019 CLIFTON ALMONTE RECLAMATION WORKER Ot N18.9 CHRONIC KIDNEY DISEASE, UNSPECIFIED 09/24/2019 RUTH ANN CHAU FACC, ALI FACP CCDS Ot E78.5 HYPERLIPIDEMIA, UNSPECIFIED 09/24/2019 RUTH ANN CHAU [facility], GAB FACP CCDS Ot 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, W S 09/24/2019 RUTH ANN CHAU [facility], GAB FACP CCDS Ot I25.10 ATHSCL HEART DISEASE OF [place] CORONARY 09/24/2019 RUTH ANN CHAU [facility], ALI FACP CCDS Ot I25.2 OLD MYOCARDIAL INFARCTION 09/24/2019 RUTH ANN CHAU [facility], ALI FACP CCDS Ot I25.5 ISCHEMIC CARDIOMYOPATHY 09/24/2019 RUTH ANN CHAU [facility], ALI FACP CCDS Ot N18.4 CHRONIC KIDNEY DISEASE, STAGE 4 (SEVERE) 09/24/2019 RUTH ANN CARVER, GAB FACP CCDS Ot Z72.0 TOBACCO USE 09/24/2019 CAROL RAINES APRN Ot G47.33 OBSTRUCTIVE SLEEP APNEA (ADULT) (PEDIATR 09/24/2019 CAROL RAINES SHIP RUNNER Ot G47.36 SLEEP RELATED HYPOVENTILATION IN CONDITI 09/24/2019 CAROL RAINES APRN Ot I51.7 CARDIOMEGALY 09/24/2019 CAROL RAINES SHIP RUNNER Ot J44.9 CHRONIC OBSTRUCTIVE PULMONARY DISEASE, U 09/24/2019 CAROL RAINES APRN Ot J90 PLEURAL EFFUSION, NOT ELSEWHERE CLASSIFI 09/24/2019 CAROL RAINES APRN Ot Z72.0 TOBACCO USE 09/24/2019 ASHANTI BIRMINGHAM MD Ot I50.20 UNSPECIFIED SYSTOLIC (CONGESTIVE) HEART 09/24/2019 ASHANTI BIRMINGHAM MD Ot N18 .4 CHRONIC KIDNEY DISEASE, STAGE 4 (SEVERE) 09/24/2019 ASHANTI BIRMINGHAM MD Ot N40 .1 BENIGN PROSTATIC HYPERPLASIA WITH LOWER 09/24/2019 ASHANTI BIRMINGHAM MD Ot R60 .0 LOCALIZED EDEMA 09/24/2019 ASHANTI BIRMINGHAM MD Ot I50.20 UNSPECIFIED SYSTOLIC (CONGESTIVE) HEART 09/24/2019 ASHANTI BIRMINGHAM MD Ot N18 .4 CHRONIC KIDNEY DISEASE, STAGE 4 (SEVERE) 09/24/2019 ASHANTI BIRMINGHAM MD Ot R60 .0 LOCALIZED EDEMA 09/24/2019 ASHANTI BIRMINGHAM MD Ot I50.20 UNSPECIFIED SYSTOLIC (CONGESTIVE) HEART 09/24/2019 ASHANTI BIRMINGHAM MD Ot N18 .4 CHRONIC KIDNEY DISEASE, STAGE 4 (SEVERE) 09/24/2019 ASHANTI BIRMINGHAM MD Ot R60 .0 LOCALIZED EDEMA 10/05/2019 SUZYCLIFTON RECLAMATION WORKER Ot I50.23 ACUTE ON CHRONIC SYSTOLIC (CONGESTIVE) H 10/05/2019 CLIFTON ALMONTE RECLAMATION WORKER Ot N18.9 CHRONIC KIDNEY DISEASE, UNSPECIFIED 10/05/2019 RUTH ANN CHAU FAC, ALI FACP CCDS Ot E78.5 HYPERLIPIDEMIA, UNSPECIFIED 10/05/2019 RUTH ANN CHAU FACC, ALI FACP CCDS Ot 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, W S 10/05/2019 RUTH ANN CHAU [facility], ALI FACP CCDS Ot I25.10 ATHSCL HEART DISEASE OF [place] CORONARY 10/05/2019 RUTH ANN CHAU [facility], ALI FACP CCDS Ot I25.2 OLD MYOCARDIAL INFARCTION 10/05/2019 RUTH ANN CHAU [facility], ALI FACP CCDS Ot I25.5 ISCHEMIC CARDIOMYOPATHY 10/05/2019 RUTHA NN CHAU [facility], ALI FACP CCDS Ot N18.4 CHRONIC KIDNEY DISEASE, STAGE 4 (SEVERE) 10/05/2019 RUT HANN CHAU [facility], ALI FACP CCDS Ot Z72.0 TOBACCO USE 10/05/2019 CAROL RAINES APRN Ot G47.33 OBSTRUCTIVE SLEEP APNEA (ADULT) (PEDIATR 10/05/2019 CAROL RAINES SHIP RUNNER Ot G47.36 SLEEP RELATED HYPOVENTILATION IN CONDITI 10/05/2019 CAROL RAINES APRN Ot I51.7 CARDIOMEGALY 10/05/2019 CAROL RAINES APRN Ot J44.9 CHRONIC OBSTRUCTIVE PULMONARY DISEASE, U 10/05/2019 CAROL RAINES APRN Ot J90 PLEURAL EFFUSION, NOT ELSEWHERE CLASSIFI 10/05/2019 CAROL RAINES APRN Ot Z72.0 TOBACCO USE 10/05/2019 ASHANTI BIRMINGHAM MD Ot I50.20 UNSPECIFIED SYSTOLIC (CONGESTIVE) HEART 10/05/2019 ASHANTI BIRMINGHAM MD Ot N18 .4 CHRONIC KIDNEY DISEASE, STAGE 4 (SEVERE) 10/05/2019 ASHANTI BIRMINGHAM MD Ot N40 .1 BENIGN PROSTATIC HYPERPLASIA WITH LOWER 10/05/2019 ASHANTI BIRMINGHAM MD Ot R60 .0 LOCALIZED EDEMA 10/05/2019 ASHANTI BIRMINGHAM MD Ot I50.20 UNSPECIFIED SYSTOLIC (CONGESTIVE) HEART 10/05/2019 ASHANTI BIRMINGHAM MD Ot N18 .4 CHRONIC KIDNEY DISEASE, STAGE 4 (SEVERE) 10/05/2019 ASHANTI BIRMINGHAM MD Ot R60 .0 LOCALIZED EDEMA 10/05/2019 ASHANTI BIRMINGHAM MD Ot I50.20 UNSPECIFIED SYSTOLIC (CONGESTIVE) HEART 10/05/2019 ASHANTI BIRMINGHAM MD Ot N18 .4 CHRONIC KIDNEY DISEASE, STAGE 4 (SEVERE) 10/05/2019 ASHANTI BIRMINGHAM MD Ot R60 .0 LOCALIZED EDEMA 10/06/2019 CLIFTON ALMONTE RECLAMATION WORKER Ot I50.23 ACUTE ON CHRONIC SYSTOLIC (CONGESTIVE) H 10/06/2019 CLIFTON ALMONTE RECLAMATION WORKER Ot N18.9 CHRONIC KIDNEY DISEASE, UNSPECIFIED 10/06/2019 RUTH ANN CHAU FACC, ALI FACP CCDS Ot E78.5 HYPERLIPIDEMIA, UNSPECIFIED 10/06/2019 RUTH ANN CHAU FACC, ALI FACP CCDS Ot 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, W S 10/06/2019 RUTH ANN CHAU FACC, ALI FACP CCDS Ot I25.10 ATHSCL HEART DISEASE OF [place] CORONARY 10/06/2019 RUTH ANN CHAU FACC, ALI FACP CCDS Ot I25.2 OLD MYOCARDIAL INFARCTION 10/06/2019 RUTH ANN CHAU FACC, ALI FACP CCDS Ot I25.5 ISCHEMIC CARDIOMYOPATHY 10/06/2019 RUTH ANN CHAU FACC, ALI FACP CCDS Ot N18.4 CHRONIC KIDNEY DISEASE, STAGE 4 (SEVERE) 10/06/2019 RUTH ANN CHAU FACC, ALI FACP CCDS Ot Z72.0 TOBACCO USE 10/06/2019 CAROL RAINES APRN Ot G47.33 OBSTRUCTIVE SLEEP APNEA (ADULT) (PEDIATR 10/06/2019 CAROL RAINES APRN Ot G47.36 SLEEP RELATED HYPOVENTILATION IN CONDITI 10/06/2019 CAROL RAINES APRN Ot I51.7 CARDIOMEGALY 10/06/2019 CAROL RAINES APRN Ot J44.9 CHRONIC OBSTRUCTIVE PULMONARY DISEASE, U 10/06/2019 CAROL RAINES APRN Ot J90 PLEURAL EFFUSION, NOT ELSEWHERE CLASSIFI 10/06/2019 CAROL RAINES APRN Ot Z72.0 TOBACCO USE 10/06/2019 ASHANTI BIRMINGHAM MD Ot I50.20 UNSPECIFIED SYSTOLIC (CONGESTIVE) HEART 10/06/2019 ASHANTI BIRMINGHAM MD Ot N18 .4 CHRONIC KIDNEY DISEASE, STAGE 4 (SEVERE) 10/06/2019 ASHANTI BIRMINGHAM MD Ot N40 .1 BENIGN PROSTATIC HYPERPLASIA WITH LOWER 10/06/2019 ASHANTI BIRMINGHAM MD Ot R60 .0 LOCALIZED EDEMA 10/06/2019 ASHANTI BIRMINGHAM MD Ot I50.20 UNSPECIFIED SYSTOLIC (CONGESTIVE) HEART 10/06/2019 ASHANTI BIRMINGHAM MD Ot N18 .4 CHRONIC KIDNEY DISEASE, STAGE 4 (SEVERE) 10/06/2019 ASHANTI BIRMINGHAM MD Ot R60 .0 LOCALIZED EDEMA 10/06/2019 ASHANTI BIRMINGHAM MD Ot I50.20 UNSPECIFIED SYSTOLIC (CONGESTIVE) HEART 10/06/2019 ASHANTI BIRMINGHAM MD Ot N18 .4 CHRONIC KIDNEY DISEASE, STAGE 4 (SEVERE) 10/06/2019 ASHANTI BIRMINGHAM MD Ot R60 .0 LOCALIZED EDEMA Procedures There is no data. Results Test Result Range Complete blood count (CBC) with automate d white blood cell (WBC) differential - 04/25/19 14:58 Blood leukocytes automated count (number/volume) 8.6 10*3/uL 4.3-11.0 Blood erythrocytes automated count (number/volume) 4.01 10*6/uL 4.35-5.85 Venous blood hemoglobin measurement (mass/volume) 11.9 g/dL 13.3-17.7 Blood hematocrit (volume fraction) 36 % 40-54 Automated erythrocyte mean corpuscular volume 90 [ foz_us] 80-99 Automated erythrocyte mean corpuscular h emoglobin (mass per erythrocyte) 30 pg 25-34 Automated erythrocyte mean corpuscular h emoglobin concentration measurement (mass/volume) 33 g/dL 32-36 Automated erythrocyte distribution width ratio 14. 9 % 10.0- 14.5 Automated blood platelet count (count/volume) 116 10*3/uL 130-400 Automated blood platelet mean volume measurement 12.6 [foz_us] 7.4-10.4 Automated blood neutrophils/100 leukocytes 68 % 42-75 Automated blood lymphocytes/100 leukocytes 17 % 12-44 Blood monocytes/100 leukocytes 11 % 0-12 Automated blood eosinophils/100 leukocytes 4 % 0-10 Automated blood basophils/100 leukocytes 0 % 0-10 Blood neutrophils automated count (number/volume) 5.8 10*3 1.8-7.8 Blood lymphocytes automated count (number/volume) 1.5 10*3 1.0-4.0 Blood monocytes automated count (number/volume) 1. 0 10*3 0.0-1.0 Automated eosinophil count 0.3 10*3/uL 0 .0-0.3 Automated blood basophil count (count/volume) 0.0 10*3/uL 0.0-0.1 PT panel in platelet poor plasma by coag ulation assay - 04/25/19 14:58 Prothrombin time (PT) in platelet poor plasma by coagu lation assay 13.5 s 12.2-14.7 INR in platelet poor plasma or blood by coagulation as say 1.0 0.8-1.4 Activated partial thromboplastin time (a PTT) in platelet poor plasma bycoagulation assay - 04/25/19 14:58 Activated partial thromboplastin time (a PTT) in platelet poor plasma bycoagulation assay 26 s 24-35 Comprehensive metabolic panel - 04/25/19 14:58 Serum or plasma sodium measurement (moles/volume) 140 mmol/L 135-145 Serum or plasma potassium measurement (moles/volume) 4.4 mmol/L 3.6-5.0 Serum or plasma chloride measurement (moles/volume) 99 mmol/L 98-107 Carbon dioxide 26 mmol/L 21-32 Serum or plasma anion gap determination (moles/volume) 15 mmol/L 5-14 Serum or plasma urea nitrogen measurement (mass/volume ) 47 mg/dL 7-18 Serum or plasma creatinine measurement (mass/volume) 3.03 mg/dL 0.60-1.30 Serum or plasma urea nitrogen/creatinine mass ratio 16 NRG Serum or plasma creatinine measurement w ith calculation of estimated glomerular filtration rate 21 NRG Serum or plasma glucose measurement (mass/volume) 132 mg/dL 70-105 Serum or plasma calcium measurement (mass/volume) 9.3 mg/dL 8.5-10.1 Serum or plasma total bilirubin measurement (mass/volu me) 0.6 mg/dL 0.1-1.0 Serum or plasma alkaline phosphatase ada surement (enzymatic activity/volume) 75 U/L 40-136 Serum or plasma aspartate aminotransfera se measurement (enzymatic activity/volume) 15 U/L 5-34 Serum or plasma alanine aminotransferase measurement (enzymatic activity/volume) 22 U/L 0-55 Serum or plasma protein measurement (mass/volume) 7.1 g/dL 6.4-8.2 Serum or plasma albumin measurement (mass/volume) 4.1 g/dL 3.2-4.5 CALCIUM CORRECTED 9.2 mg/dL 8.5-10.1 Magnesium - 04/25/19 14:58 Magnesium 2.3 mg/dL 1.6-2.4 Serum or plasma troponin i.cardiac measu rement (mass/volume) - 04/25/19 14:58 Serum or plasma troponin i.cardiac measurement (mass/v olume) 0.061 ng/mL <0.028 Myoglobin, serum - 04/25/19 14:58 Myoglobin, serum 101.9 ng/mL 10.0-92.0 Serum or plasma lithium measurement (mol es/volume) - 04/25/19 14:58 BNP PT 1699.5 pg/mL <100.0 Fibrin D-dimer FEU measurement in platel et poor plasma (mass/volume) - 04/25/19 14:58 Fibrin D-dimer FEU measurement in platelet poor plasma (mass/volume) 0.63 ug/mL 0.00-0.49 Arterial blood gas measurement - 9 17:13 Blood pCO2 46 mm[Hg] 35-45 Blood pO2 53 mm[Hg] 79-93 Arterial blood bicarbonate measurement (moles/volume) 31 mmol/L 23-27 Arterial blood base excess by calculation 6.7 mmol /L -2.5-2.5 Arterial blood oxygen saturation measurement 89 % 94-100 * Inhaled oxygen flow rate 2 L NRG Arterial blood pH measurement with patient temperature correction 7.44 7.37-7.43 Arterial blood carbon dioxide, total measurement (mole s/volume) 32.4 mmol/L 21.0-31.0 Body site RIGHT RADIAL NRG Assessment of wrist artery patency prior to arterial p uncture POSITIVE NRG Setting of ventilation mode NO NR G Measurement of body temperature 98 NRG Capillary blood glucose measurement by g lucometer (mass/volume) - 04/25/19 21:13 Capillary blood glucose measurement by glucometer (mas s/volume) 256 mg/dL 70-110 Serum or plasma troponin i.cardiac measu rement (mass/volume) - 04/26/19 01:06 Serum or plasma troponin i.cardiac measurement (mass/v olume) 0.068 ng/mL <0.028 Capillary blood glucose measurement by g lucometer (mass/volume) - 04/26/19 06:04 Capillary blood glucose measurement by glucometer (mas s/volume) 154 mg/dL 70-110 Lipid 1996 panel - 04/26/19 06:07 Serum or plasma triglyceride measurement (mass/volume) 103 mg/dL <150 Serum or plasma cholesterol measurement (mass/volume) 132 mg/dL < 200 Serum or plasma cholesterol in HDL measurement (mass/v olume) 34 mg/dL 40-60 Cholesterol in LDL [mass/volume] in serum or plasma by direct assay 100 mg/dL 1-129 Serum or plasma cholesterol in VLDL measurement (mass/ volume) 21 mg/dL 5-40 Serum or plasma troponin i.cardiac measu rement (mass/volume) - 04/26/19 06:07 Serum or plasma troponin i.cardiac measurement (mass/v olume) 0.057 ng/mL <0.028 Capillary blood glucose measurement by g lucometer (mass/volume) - 04/26/19 07:46 Capillary blood glucose measurement by glucometer (mas s/volume) 211 mg/dL 70-110 Capillary blood glucose measurement by g lucometer (mass/volume) - 04/26/19 11:19 Capillary blood glucose measurement by glucometer (mas s/volume) 314 mg/dL 70-110 Capillary blood glucose measurement by g lucometer (mass/volume) - 04/26/19 16:45 Capillary blood glucose measurement by glucometer (mas s/volume) 338 mg/dL 70-110 Capillary blood glucose measurement by g lucometer (mass/volume) - 11/10/19 19:40 Capillary blood glucose measurement by glucometer (mas s/volume) 318 mg/dL 70-110 Complete blood count (CBC) with automate d white blood cell (WBC) differential - 04/27/19 03:00 Blood leukocytes automated count (number/volume) 12.4 10*3/uL 4.3-11.0 Blood erythrocytes automated count (number/volume) 4.33 10*6/uL 4.35-5.85 Venous blood hemoglobin measurement (mass/volume) 12.6 g/dL 13.3-17.7 Blood hematocrit (volume fraction) 38 % 40-54 Automated erythrocyte mean corpuscular volume 89 [ foz_us] 80-99 Automated erythrocyte mean corpuscular h emoglobin (mass per erythrocyte) 29 pg 25-34 Automated erythrocyte mean corpuscular h emoglobin concentration measurement (mass/volume) 33 g/dL 32-36 Automated erythrocyte distribution width ratio 14. 9 % 10.0- 14.5 Automated blood platelet count (count/volume) 130 10*3/uL 130-400 Automated blood platelet mean volume measurement 13.6 [foz_us] 7.4-10.4 Automated blood neutrophils/100 leukocytes 84 % 42-75 Automated blood lymphocytes/100 leukocytes 8 % 12-44 Blood monocytes/100 leukocytes 7 % 0-12 Automated blood eosinophils/100 leukocytes 1 % 0-10 Automated blood basophils/100 leukocytes 0 % 0-10 Blood neutrophils automated count (number/volume) 10.4 10*3 1.8-7.8 Blood lymphocytes automated count (number/volume) 1.0 10*3 1.0-4.0 Blood monocytes automated count (number/volume) 0. 9 10*3 0.0-1.0 Automated eosinophil count 0.1 10*3/uL 0 .0-0.3 Automated blood basophil count (count/volume) 0.0 10*3/uL 0.0-0.1 Comprehensive metabolic panel - 04/27/19 03:00 Serum or plasma sodium measurement (moles/volume) 136 mmol/L 135-145 Serum or plasma potassium measurement (moles/volume) 4.5 mmol/L 3.6-5.0 Serum or plasma chloride measurement (moles/volume) 97 mmol/L 98-107 Carbon dioxide 25 mmol/L 21-32 Serum or plasma anion gap determination (moles/volume) 14 mmol/L 5-14 Serum or plasma urea nitrogen measurement (mass/volume ) 48 mg/dL 7-18 Serum or plasma creatinine measurement (mass/volume) 2.87 mg/dL 0.60-1.30 Serum or plasma urea nitrogen/creatinine mass ratio 17 NRG Serum or plasma creatinine measurement w ith calculation of estimated glomerular filtration rate 22 NRG Serum or plasma glucose measurement (mass/volume) 203 mg/dL 70-105 Serum or plasma calcium measurement (mass/volume) 9.5 mg/dL 8.5-10.1 Serum or plasma total bilirubin measurement (mass/volu me) 0.6 mg/dL 0.1-1.0 Serum or plasma alkaline phosphatase ada surement (enzymatic activity/volume) 65 U/L 40-136 Serum or plasma aspartate aminotransfera se measurement (enzymatic activity/volume) 15 U/L 5-34 Serum or plasma alanine aminotransferase measurement (enzymatic activity/volume) 20 U/L 0-55 Serum or plasma protein measurement (mass/volume) 6.9 g/dL 6.4-8.2 Serum or plasma albumin measurement (mass/volume) 4.0 g/dL 3.2-4.5 CALCIUM CORRECTED 9.5 mg/dL 8.5-10.1 Magnesium - 04/27/19 03:00 Magnesium 2.2 mg/dL 1.6-2.4 Lipid 1996 panel - 04/27/19 03:00 Serum or plasma triglyceride measurement (mass/volume) 90 mg/dL <150 Serum or plasma cholesterol measurement (mass/volume) 146 mg/dL < 200 Serum or plasma cholesterol in HDL measurement (mass/v olume) 43 mg/dL 40-60 Cholesterol in LDL [mass/volume] in serum or plasma by direct assay 90 mg/dL 1-129 Serum or plasma cholesterol in VLDL measurement (mass/ volume) 18 mg/dL 5-40 THYROID STIMULATING HORMONE - 04/27/19 0 3:00 THYROID STIMULATING HORMONE 2.58 u[iU]/mL 0.35-4.94 Capillary blood glucose measurement by g lucometer (mass/volume) - 04/27/19 11:35 Capillary blood glucose measurement by glucometer (mas s/volume) 317 mg/dL 70-110 Capillary blood glucose measurement by g lucometer (mass/volume) - 04/27/19 15:38 Capillary blood glucose measurement by glucometer (mas s/volume) 335 mg/dL 70-110 Capillary blood glucose measurement by g lucometer (mass/volume) - 04/27/19 20:50 Capillary blood glucose measurement by glucometer (mas s/volume) 408 mg/dL 70-110 Capillary blood glucose measurement by g lucometer (mass/volume) - 04/28/19 05:16 Capillary blood glucose measurement by glucometer (mas s/volume) 124 mg/dL 70-110 Whole blood basic metabolic panel - 04/17 08/05 05:37 Serum or plasma sodium measurement (moles/volume) 136 mmol/L 135-145 Serum or plasma potassium measurement (moles/volume) 3.9 mmol/L 3.6-5.0 Serum or plasma chloride measurement (moles/volume) 96 mmol/L 98-107 Carbon dioxide 28 mmol/L 21-32 Serum or plasma anion gap determination (moles/volume) 12 mmol/L 5-14 Serum or plasma urea nitrogen measurement (mass/volume ) 53 mg/dL 7-18 Serum or plasma creatinine measurement (mass/volume) 2.57 mg/dL 0.60-1.30 Serum or plasma urea nitrogen/creatinine mass ratio 21 NRG Serum or plasma creatinine measurement w ith calculation of estimated glomerular filtration rate 25 NRG Serum or plasma glucose measurement (mass/volume) 120 mg/dL 70-105 Serum or plasma calcium measurement (mass/volume) 9.4 mg/dL 8.5-10.1 Whole blood basic metabolic panel - 04/18 11:30 Serum or plasma sodium measurement (moles/volume) 136 mmol/L 135-145 Serum or plasma potassium measurement (moles/volume) 4.8 mmol/L 3.6-5.0 Serum or plasma chloride measurement (moles/volume) 96 mmol/L 98-107 Carbon dioxide 25 mmol/L 21-32 Serum or plasma anion gap determination (moles/volume) 15 mmol/L 5-14 Serum or plasma urea nitrogen measurement (mass/volume ) 53 mg/dL 7-18 Serum or plasma creatinine measurement (mass/volume) 2.75 mg/dL 0.60-1.30 Serum or plasma urea nitrogen/creatinine mass ratio 19 NRG Serum or plasma creatinine measurement w ith calculation of estimated glomerular filtration rate 23 NRG Serum or plasma glucose measurement (mass/volume) 390 mg/dL 70-105 Serum or plasma calcium measurement (mass/volume) 9.0 mg/dL 8.5-10.1 Whole blood basic metabolic panel - 04/18 03/05 10:31 Serum or plasma sodium measurement (moles/volume) 137 mmol/L 135-145 Serum or plasma potassium measurement (moles/volume) 4.9 mmol/L 3.6-5.0 Serum or plasma chloride measurement (moles/volume) 99 mmol/L 98-107 Carbon dioxide 26 mmol/L 21-32 Serum or plasma anion gap determination (moles/volume) 12 mmol/L 5-14 Serum or plasma urea nitrogen measurement (mass/volume ) 68 mg/dL 7-18 Serum or plasma creatinine measurement (mass/volume) 3.12 mg/dL 0.60-1.30 Serum or plasma urea nitrogen/creatinine mass ratio 22 NRG Serum or plasma creatinine measurement w ith calculation of estimated glomerular filtration rate 20 NRG Serum or plasma glucose measurement (mass/volume) 199 mg/dL 70-105 Serum or plasma calcium measurement (mass/volume) 9.3 mg/dL 8.5-10.1 CMP - 05/22/19 12:04 GLUCOSE 70 mg/dL 65-99 UREA NITROGEN (BUN) 54 mg/dL 7-25 CREATININE 2.50 mg/dL 0.70-1.25 eGFR NON-AFR. MEXICAN 26 mL/min/1.73m2 > OR = 60 eGFR 31 mL/min/1.73m2 > OR = 60 BUN/CREATININE RATIO 22 (calc) 6-22 SODIUM 140 mmol/L 135-146 POTASSIUM 4.5 mmol/L 3.5-5.3 CHLORIDE 104 mmol/L 98-110 CARBON DIOXIDE 26 mmol/L 20-32 CALCIUM 8.9 mg/dL 8.6-10.3 PROTEIN, TOTAL 6.4 g/dL 6.1-8.1 ALBUMIN 3.9 g/dL 3.6-5.1 GLOBULIN 2.5 g/dL (calc) 1.9-3.7 ALBUMIN/GLOBULIN RATIO 1.6 (calc) 1.0-2. 5 BILIRUBIN, TOTAL 0.8 mg/dL 0.2-1.2 ALKALINE PHOSPHATASE 64 U/L 40-115 AST 15 U/L 10-35 ALT 13 U/L 9-46 CBC - 05/22/19 12:04 WHITE BLOOD CELL COUNT 7.5 Thousand/uL 3 .8-10.8 RED BLOOD CELL COUNT 4.20 Million/uL 4.2 0-5.80 HEMOGLOBIN 12.2 g/dL 13.2-17.1 HEMATOCRIT 37.7 % 38.5-50.0 MCV 89.8 fL 80.0-100.0 MCH 29.0 pg 27.0-33.0 MCHC 32.4 g/dL 32.0-36.0 RDW 13.8 % 11.0-15.0 PLATELET COUNT 120 Thousand/uL 140-400 MPV 13.3 fL 7.5-12.5 ABSOLUTE NEUTROPHILS 5588 cells/uL 1500- 7800 ABSOLUTE LYMPHOCYTES 1200 cells/uL 850-3 900 ABSOLUTE MONOCYTES 488 cells/uL 200-950 ABSOLUTE EOSINOPHILS 173 cells/uL 15-500 ABSOLUTE BASOPHILS 53 cells/uL 0-200 NEUTROPHILS 74.5 % NRG LYMPHOCYTES 16.0 % NRG MONOCYTES 6.5 % NRG EOSINOPHILS 2.3 % NRG BASOPHILS 0.7 % NRG A1C - 05/22/19 12:04 HEMOGLOBIN A1c 9.0 % of total Hgb <5.7 Arterial blood gas measurement - 0 15:00 Blood pCO2 43 mm[Hg] 35-45 Blood pO2 65 mm[Hg] 79-93 Arterial blood bicarbonate measurement (moles/volume) 28 mmol/L 23-27 Arterial blood base excess by calculation 3.5 mmol /L -2.5-2.5 Arterial blood oxygen saturation measurement 93 % 94-100 * Inhaled oxygen flow rate 3 L NRG Arterial blood pH measurement with patient temperature correction 7.43 7.37-7.43 Arterial blood carbon dioxide, total measurement (mole s/volume) 29.0 mmol/L 21.0-31.0 Body site LEFT RADIAL NRG Assessment of wrist artery patency prior to arterial p uncture POSITIVE NRG Setting of ventilation mode NO NR G Measurement of body temperature 36.9 NRG Complete blood count (CBC) with automate d white blood cell (WBC) differential - 08/13/19 20:30 Blood leukocytes automated count (number/volume) 9.4 10*3/uL 4.3-11.0 Blood erythrocytes automated count (number/volume) 5.19 10*6/uL 4.35-5.85 Venous blood hemoglobin measurement (mass/volume) 13.7 g/dL 13.3-17.7 Blood hematocrit (volume fraction) 41 % 40-54 Automated erythrocyte mean corpuscular volume 79 [ foz_us] 80-99 Automated erythrocyte mean corpuscular h emoglobin (mass per erythrocyte) 26 pg 25-34 Automated erythrocyte mean corpuscular h emoglobin concentration measurement (mass/volume) 33 g/dL 32-36 Automated erythrocyte distribution width ratio 15. 4 % 10.0- 14.5 Automated blood platelet count (count/volume) 127 10*3/uL 130-400 Automated blood platelet mean volume measurement 13.1 [foz_us] 7.4-10.4 Automated blood neutrophils/100 leukocytes 71 % 42-75 Automated blood lymphocytes/100 leukocytes 18 % 12-44 Blood monocytes/100 leukocytes 7 % 0-12 Automated blood eosinophils/100 leukocytes 3 % 0-10 Automated blood basophils/100 leukocytes 0 % 0-10 Blood neutrophils automated count (number/volume) 6.7 10*3 1.8-7.8 Blood lymphocytes automated count (number/volume) 1.7 10*3 1.0-4.0 Blood monocytes automated count (number/volume) 0. 7 10*3 0.0-1.0 Automated eosinophil count 0.3 10*3/uL 0 .0-0.3 Automated blood basophil count (count/volume) 0.0 10*3/uL 0.0-0.1 Comprehensive metabolic panel - 08/13/19 20:30 Serum or plasma sodium measurement (moles/volume) 134 mmol/L 135-145 Serum or plasma potassium measurement (moles/volume) 3.5 mmol/L 3.6-5.0 Serum or plasma chloride measurement (moles/volume) 92 mmol/L 98-107 Carbon dioxide 29 mmol/L 21-32 Serum or plasma anion gap determination (moles/volume) 13 mmol/L 5-14 Serum or plasma urea nitrogen measurement (mass/volume ) 113 mg/dL 7-18 Serum or plasma creatinine measurement (mass/volume) 4.43 mg/dL 0.60-1.30 Serum or plasma urea nitrogen/creatinine mass ratio 26 NRG Serum or plasma creatinine measurement w ith calculation of estimated glomerular filtration rate 14 NRG Serum or plasma glucose measurement (mass/volume) 112 mg/dL 70-105 Serum or plasma calcium measurement (mass/volume) 9.5 mg/dL 8.5-10.1 Serum or plasma total bilirubin measurement (mass/volu me) 0.4 mg/dL 0.1-1.0 Serum or plasma alkaline phosphatase ada surement (enzymatic activity/volume) 83 U/L 40-136 Serum or plasma aspartate aminotransfera se measurement (enzymatic activity/volume) 23 U/L 5-34 Serum or plasma alanine aminotransferase measurement (enzymatic activity/volume) 17 U/L 0-55 Serum or plasma protein measurement (mass/volume) 7.8 g/dL 6.4-8.2 Serum or plasma albumin measurement (mass/volume) 4.3 g/dL 3.2-4.5 CALCIUM CORRECTED 9.3 mg/dL 8.5-10.1 Magnesium - 08/13/19 20:30 Magnesium 1.9 mg/dL 1.6-2.4 Serum or plasma troponin i.cardiac measu rement (mass/volume) - 08/13/19 20:30 Serum or plasma troponin i.cardiac measurement (mass/v olume) 0.087 ng/mL <0.028 Serum or plasma lithium measurement (mol es/volume) - 08/13/19 20:30 BNP PT 636.9 pg/mL <100.0 Serum or plasma C reactive protein measu rement (mass/volume) - 08/13/19 20:30 Serum or plasma C reactive protein measurement (mass/v olume) 0.41 mg/dL 0.00-0.50 Influenza virus A and B antigen detectio n - 08/13/19 20:42 FLU RESULT NEGATIVE FOR INFLUENZA A AND B ANTIGENS BY IA NRG Complete urinalysis with reflex to cultu re - 08/13/19 21:55 Urine color determination YELLOW NRG Urine clarity determination CLEAR NR G Urine pH measurement by test strip 5.5 5-9 Specific gravity of urine by test strip 1.010 1.016-1.022 Urine protein assay by test strip, semi-quantitative NEGATIVE NEGATIVE Urine glucose detection by automated test strip NE GATIVE NEGATIVE Erythrocytes detection in urine sediment by light micr oscopy NEGATIVE NEGATIVE Urine ketones detection by automated test strip NE GATIVE NEGATIVE Urine nitrite detection by test strip NEGATIVE NEGATIVE Urine total bilirubin detection by test strip NEGA TIVE NEGATIVE Urine urobilinogen measurement by automated test strip (mass/volume) 0.2 mg/dL < = 1.0 Urine leukocyte esterase detection by dipstick NEG ATIVE NEGATIVE Automated urine sediment erythrocyte cou nt by microscopy (number/high power field) NONE NRG Automated urine sediment leukocyte count by microscopy (number/high power field) NONE NRG Bacteria detection in urine sediment by light microsco py NEGATIVE NRG Squamous epithelial cells detection in u rine sediment by light microscopy 0-2 NRG Crystals detection in urine sediment by light microsco py NONE NRG Casts detection in urine sediment by light microscopy PRESENT NRG Mucus detection in urine sediment by light microscopy NEGATIVE NRG Complete urinalysis with reflex to culture NO NRG Hyaline casts detection in urine sediment by light jovany roscopy 5-10 NRG Capillary blood glucose measurement by g lucometer (mass/volume) - 08/14/19 04:27 Capillary blood glucose measurement by glucometer (mas s/volume) 289 mg/dL 70-110 Complete blood count (CBC) with automate d white blood cell (WBC) differential - 08/14/19 05:40 Blood leukocytes automated count (number/volume) 8.2 10*3/uL 4.3-11.0 Blood erythrocytes automated count (number/volume) 5.16 10*6/uL 4.35-5.85 Venous blood hemoglobin measurement (mass/volume) 13.6 g/dL 13.3-17.7 Blood hematocrit (volume fraction) 41 % 40-54 Automated erythrocyte mean corpuscular volume 80 [ foz_us] 80-99 Automated erythrocyte mean corpuscular h emoglobin (mass per erythrocyte) 26 pg 25-34 Automated erythrocyte mean corpuscular h emoglobin concentration measurement (mass/volume) 33 g/dL 32-36 Automated erythrocyte distribution width ratio 15. 6 % 10.0- 14.5 Automated blood platelet count (count/volume) 123 10*3/uL 130-400 Automated blood platelet mean volume measurement 13.6 [foz_us] 7.4-10.4 Automated blood neutrophils/100 leukocytes 71 % 42-75 Automated blood lymphocytes/100 leukocytes 20 % 12-44 Blood monocytes/100 leukocytes 7 % 0-12 Automated blood eosinophils/100 leukocytes 3 % 0-10 Automated blood basophils/100 leukocytes 0 % 0-10 Blood neutrophils automated count (number/volume) 5.8 10*3 1.8-7.8 Blood lymphocytes automated count (number/volume) 1.6 10*3 1.0-4.0 Blood monocytes automated count (number/volume) 0. 6 10*3 0.0-1.0 Automated eosinophil count 0.2 10*3/uL 0 .0-0.3 Automated blood basophil count (count/volume) 0.0 10*3/uL 0.0-0.1 Comprehensive metabolic panel - 08/14/19 05:40 Serum or plasma sodium measurement (moles/volume) 135 mmol/L 135-145 Serum or plasma potassium measurement (moles/volume) 3.2 mmol/L 3.6-5.0 Serum or plasma chloride measurement (moles/volume) 95 mmol/L 98-107 Carbon dioxide 24 mmol/L 21-32 Serum or plasma anion gap determination (moles/volume) 16 mmol/L 5-14 Serum or plasma urea nitrogen measurement (mass/volume ) 110 mg/dL 7-18 Serum or plasma creatinine measurement (mass/volume) 4.01 mg/dL 0.60-1.30 Serum or plasma urea nitrogen/creatinine mass ratio 27 NRG Serum or plasma creatinine measurement w ith calculation of estimated glomerular filtration rate 15 NRG Serum or plasma glucose measurement (mass/volume) 203 mg/dL 70-105 Serum or plasma calcium measurement (mass/volume) 9.6 mg/dL 8.5-10.1 Serum or plasma total bilirubin measurement (mass/volu me) 0.5 mg/dL 0.1-1.0 Serum or plasma alkaline phosphatase ada surement (enzymatic activity/volume) 78 U/L 40-136 Serum or plasma aspartate aminotransfera se measurement (enzymatic activity/volume) 23 U/L 5-34 Serum or plasma alanine aminotransferase measurement (enzymatic activity/volume) 18 U/L 0-55 Serum or plasma protein measurement (mass/volume) 7.7 g/dL 6.4-8.2 Serum or plasma albumin measurement (mass/volume) 4.1 g/dL 3.2-4.5 CALCIUM CORRECTED 9.5 mg/dL 8.5-10.1 Serum or plasma troponin i.cardiac measu rement (mass/volume) - 08/14/19 05:40 Serum or plasma troponin i.cardiac measurement (mass/v olume) 0.075 ng/mL <0.028 Serum or plasma lithium measurement (mol es/volume) - 02/28/20 05:40 BNP PT 641.7 pg/mL <100.0 Capillary blood glucose measurement by g lucometer (mass/volume) - 08/14/19 10:11 Capillary blood glucose measurement by glucometer (mas s/volume) 110 mg/dL 70-110 Capillary blood glucose measurement by g lucometer (mass/volume) - 08/14/19 15:19 Capillary blood glucose measurement by glucometer (mas s/volume) 117 mg/dL 70-110 Complete blood count (CBC) with automate d white blood cell (WBC) differential - 08/24/19 14:13 Blood leukocytes automated count (number/volume) 6.6 10*3/uL 4.3-11.0 Blood erythrocytes automated count (number/volume) 4.76 10*6/uL 4.35-5.85 Venous blood hemoglobin measurement (mass/volume) 12.7 g/dL 13.3-17.7 Blood hematocrit (volume fraction) 38 % 40-54 Automated erythrocyte mean corpuscular volume 81 [ foz_us] 80-99 Automated erythrocyte mean corpuscular h emoglobin (mass per erythrocyte) 27 pg 25-34 Automated erythrocyte mean corpuscular h emoglobin concentration measurement (mass/volume) 33 g/dL 32-36 Automated erythrocyte distribution width ratio 15. 6 % 10.0- 14.5 Automated blood platelet count (count/volume) 139 10*3/uL 130-400 Automated blood platelet mean volume measurement 11.7 [foz_us] 7.4-10.4 Automated blood neutrophils/100 leukocytes 68 % 42-75 Automated blood lymphocytes/100 leukocytes 20 % 12-44 Blood monocytes/100 leukocytes 8 % 0-12 Automated blood eosinophils/100 leukocytes 3 % 0-10 Automated blood basophils/100 leukocytes 1 % 0-10 Blood neutrophils automated count (number/volume) 4.5 10*3 1.8-7.8 Blood lymphocytes automated count (number/volume) 1.3 10*3 1.0-4.0 Blood monocytes automated count (number/volume) 0. 6 10*3 0.0-1.0 Automated eosinophil count 0.2 10*3/uL 0 .0-0.3 Automated blood basophil count (count/volume) 0.0 10*3/uL 0.0-0.1 Serum or plasma renal function panel (Na , K, Cl, CO2, BUN, Cr, glucose,Ca, phos, alb) - 08/24/19 14:13 Serum or plasma sodium measurement (moles/volume) 136 mmol/L 135-145 Serum or plasma potassium measurement (moles/volume) 3.4 mmol/L 3.6-5.0 Serum or plasma chloride measurement (moles/volume) 93 mmol/L 98-107 Carbon dioxide 28 mmol/L 21-32 Serum or plasma anion gap determination (moles/volume) 15 mmol/L 5-14 Serum or plasma urea nitrogen measurement (mass/volume ) 104 mg/dL 7-18 Serum or plasma creatinine measurement (mass/volume) 4.59 mg/dL 0.60-1.30 Serum or plasma urea nitrogen/creatinine mass ratio 23 NRG Serum or plasma creatinine measurement w ith calculation of estimated glomerular filtration rate 13 NRG Serum or plasma glucose measurement (mass/volume) 140 mg/dL 70-105 Serum or plasma calcium measurement (mass/volume) 9.3 mg/dL 8.5-10.1 Serum or plasma albumin measurement (mass/volume) 4.2 g/dL 3.2-4.5 Serum or plasma phosphate measurement (mass/volume) 5.7 mg/dL 2.3-4.7 Urine protein/creatinine mass ratio - 14:13 Urine protein measurement (mass/volume) < mg/dL 6-12 Urine creatinine measurement (mass/volume) 111 mg/ dL 30-125 Urine protein/creatinine mass ratio TNP NRG Serum or plasma uric acid measurement (m ass/volume) - 08/24/19 14:13 Serum or plasma uric acid measurement (mass/volume) 13.4 mg/dL 2.6-7.2 Serum or plasma intact pararthyroid horm one measurement (mass/volume) - 08/24/19 14:13 Serum or plasma intact parathyroid hormone measurement (mass/volume) 336.9 pg/mL 9.0-77.0 Bio-intact parathyroid hormone (PTH) measurement with calcium 8.7 % 8.5-10.5 VITAMIN D 25-HYDROXY - 08/24/19 14:13 VITAMIN D 25-HYDROXY (TOTAL) 39.3 % 3 0.0-100.0 Serum or plasma renal function panel (Na , K, Cl, CO2, BUN, Cr, glucose,Ca, phos, alb) - 09/09/19 14:00 Serum or plasma sodium measurement (moles/volume) 138 mmol/L 135-145 Serum or plasma potassium measurement (moles/volume) 4.1 mmol/L 3.6-5.0 Serum or plasma chloride measurement (moles/volume) 101 mmol/L 98-107 Carbon dioxide 24 mmol/L 21-32 Serum or plasma anion gap determination (moles/volume) 13 mmol/L 5-14 Serum or plasma urea nitrogen measurement (mass/volume ) 34 mg/dL 7-18 Serum or plasma creatinine measurement (mass/volume) 2.31 mg/dL 0.60-1.30 Serum or plasma urea nitrogen/creatinine mass ratio 15 NRG Serum or plasma creatinine measurement w ith calculation of estimated glomerular filtration rate 29 NRG Serum or plasma glucose measurement (mass/volume) 250 mg/dL 70-105 Serum or plasma calcium measurement (mass/volume) 8.5 mg/dL 8.5-10.1 Serum or plasma albumin measurement (mass/volume) 3.5 g/dL 3.2-4.5 Serum or plasma phosphate measurement (mass/volume) 3.0 mg/dL 2.3-4.7 Serum or plasma renal function panel (Na , K, Cl, CO2, BUN, Cr, glucose,Ca, phos, alb) - 09/17/19 12:22 Serum or plasma sodium measurement (moles/volume) 142 mmol/L 135-145 Serum or plasma potassium measurement (moles/volume) 4.2 mmol/L 3.6-5.0 Serum or plasma chloride measurement (moles/volume) 101 mmol/L 98-107 Carbon dioxide 26 mmol/L -32 Serum or plasma anion gap determination (moles/volume) 15 mmol/L 5-14 Serum or plasma urea nitrogen measurement (mass/volume ) 45 mg/dL 7-18 Serum or plasma creatinine measurement (mass/volume) 2.33 mg/dL 0.60-1.30 Serum or plasma urea nitrogen/creatinine mass ratio 19 NRG Serum or plasma creatinine measurement w ith calculation of estimated glomerular filtration rate 28 NRG Serum or plasma glucose measurement (mass/volume) 120 mg/dL 70-105 Serum or plasma calcium measurement (mass/volume) 8.8 mg/dL 8.5-10.1 Serum or plasma albumin measurement (mass/volume) 3.6 g/dL 3.2-4.5 Serum or plasma phosphate measurement (mass/volume) 3.2 mg/dL 2.3-4.7 Serum or plasma renal function panel (Na , K, Cl, CO2, BUN, Cr, glucose,Ca, phos, alb) - 09/24/19 12:55 Serum or plasma sodium measurement (moles/volume) 138 mmol/L 135-145 Serum or plasma potassium measurement (moles/volume) 3.5 mmol/L 3.6-5.0 Serum or plasma chloride measurement (moles/volume) 93 mmol/L 98-107 Carbon dioxide 32 mmol/L 21-32 Serum or plasma anion gap determination (moles/volume) 13 mmol/L 5-14 Serum or plasma urea nitrogen measurement (mass/volume ) 68 mg/dL 7-18 Serum or plasma creatinine measurement (mass/volume) 2.78 mg/dL 0.60-1.30 Serum or plasma urea nitrogen/creatinine mass ratio 24 NRG Serum or plasma creatinine measurement w ith calculation of estimated glomerular filtration rate 23 NRG Serum or plasma glucose measurement (mass/volume) 218 mg/dL 70-105 Serum or plasma calcium measurement (mass/volume) 8.8 mg/dL 8.5-10.1 Serum or plasma albumin measurement (mass/volume) 3.7 g/dL 3.2-4.5 Serum or plasma phosphate measurement (mass/volume) 4.5 mg/dL 2.3-4.7 Encounters ACCT No. Visit Date/Time Discharge Status Pt. Type Provider Facility Loc./Unit Complaint [id number] 05/22/2019 11:45:00 Document Registration [id number] 10/05/2019 22:40:00 23:00:00 DIS Emergency COOPER PEREZ MD [facility] [address] ER FS GOUT PAIN [id number] 09/17/2019 12:17:00 23:59:59 CLS Outpatient ASHANTI BIRMINGHAM MD [facility] [address] LAB FS KIDNSEY DISEASE [id number] 09/09/2019 13:24:00 23:59:59 CLS Outpatient ASHANTI BIRMINGHAM MD [facility] [address] LAB FS RENAL FUNCTION PANEL [id number] 08/24/2019 13:48:00 23:59:59 CLS Outpatient VALENCIA CHAU, ASHANTI [facility] [address] LAB FS CHRONIC KIDNEY DISEASE STAGE 4 [id number] 08/13/2019 21:47:00 15:38:00 DIS Inpatient JANINE NOVOA, CHARANJIT K V [facility] [address] 4TH ACUTE ONSET CHRONIC NASIMA AL FAILURE, HEART FAILURE [id number] 06/24/2019 13:25:00 23:59:59 CLS Outpatient CAROL RAINES APRN [facility] [address] RAD TOBACCO USER,DY SPNEA [id number] 05/26/2019 07:20:00 23:59:59 CLS Outpatient RUTH ANN CHAU FACC, GAB MEDELLIN CC DS [facility] [address] CARD CAD,TOBACCO USER,HYPERTENSION,HYPERLIPIDEMIA [id number] 05/15/2019 10:21:00 23:59:59 CLS Outpatient CLIFTON ALMONTE [facility] [address] LAB FS N18.9 [id number] 05/06/2019 10:35:00 23:59:59 CLS Outpatient CLIFTON ALMONTE [facility] [address] LAB FS I50.23 [id number] 04/25/2019 18:00:00 10:00:00 DIS Inpatient SHO CHAU, JOHNATHON Lee [facility] [address] 4TH DYSPNEA, CHF, OPD EXCER BATION [id number] 03/28/2019 15:51:00 17:21:00 DIS Emergency JOHN CHAU, CHANDAN Monsivais [facility] [address] ER FS LT FOOT PAIN
== END 2019-10-05 23:00 | disposition home or self-care (01) ==
LOC: EDUNIT# 22:39 → ER FS 22:40
DX: M10.9 Gout, unspecified (principal); I48.91 Unspecified atrial fibrillation; F17.210 Nicotine dependence, cigarettes, uncomplicated; J44.9 Chronic obstructive pulmonary disease, unspecified; I11.0 Hypertensive heart disease with heart failure; I10 Essential (primary) hypertension; E78.00 Pure hypercholesterolemia, unspecified; I25.10 Atherosclerotic heart disease of native coronary artery without angina pectoris; I25.2 Old myocardial infarction; E11.40 Type 2 diabetes mellitus with diabetic neuropathy, unspecified; K21.9 Gastro-esophageal reflux disease without esophagitis; M19.91 Primary osteoarthritis, unspecified site; F32.9 Major depressive disorder, single episode, unspecified; M54.9 Dorsalgia, unspecified; Z95.810 Presence of automatic (implantable) cardiac defibrillator; Z88.5 Allergy status to narcotic agent; Z79.82 Long term (current) use of aspirin; Z79.01 Long term (current) use of anticoagulants; Z79.899 Other long term (current) drug therapy; Z79.4 Long term (current) use of insulin; Z95.1 Presence of aortocoronary bypass graft
CPT/HCPCS: 99284